=== PATIENT | female | born 1945 | race Caucasian/White ===

== ENCOUNTER 2017-03-20 20:17 | Inpatient (IN) | payer MEDICARE, OTHER ==
[~2017-03-20] VITALS: Ht 162.6 cm; Wt 95.6 kg
--- NOTE | ~2017-03-20 | CN ---
PATIENT NAME:ROSE MARIE ECHEVARRIA MEDICAL RECORD: [id number] : 41 LOCATION:D.M2 D.2130 ADMIT DATE: 03/20/17 ACCOUNT: [id number] CONSULTING PHYSICIAN: BARBIE FRIED MD REFERRING PHYSICIAN: GRABIEL MEDELLIN MD DATE OF CONSULTATION: 03/23/2017 CONSULT REQUESTING PHYSICIAN: Dr. Avila Pérez. REASON FOR CONSULTATION: Wheezing, coughing, shortness of breath, acute exacerbation of asthma. HISTORY OF PRESENT ILLNESS: Ms. Echevarria is a 72-year-old female. She was admitted through the ER with acute kidney injury, electrolyte abnormality and AFib. Initially, the patient went into the ICU. They transferred up to the medical floor. The patient also having a history of asthma. She had been evaluated by Dr. Dejesus. According to patient she had strep throat a few days ago. She was treated with Augmentin. Now, she is coughing, which is productive with green colored production. She also hears herself wheezing. She has shortness of breath. There are no fever and chill. REVIEW OF SYSTEMS: Mainly in the history of present illness. PAST MEDICAL HISTORY: 1. Recent strep throat. 2. Asthma. 3. Rheumatoid arthritis. 4. Hypertension. 5. Hypothyroidism. 6. Morbid obesity. 7. Neuropathy in the lower extremity. 8. Chronic pain. PAST SURGICAL HISTORY: 1. Cholecystectomy. 2. She has cardiac catheterization and stent placement in the past. 3. History of colostomy for perforated colon and reversal. 4. Hip surgery. 5. Left knee surgery. 6. History of foot drop. ALLERGIES: SHE IS ALLERGIC TO MORPHINE AND SULFA. PRESENT MEDICATIONS: Albuterol, ipratropium nebulizer, methylprednisolone IV. Her other medication is reviewed. PERSONAL AND SOCIAL HISTORY: The patient is a nonsmoker, nondrinker. FAMILY HISTORY: Noncontributory. PHYSICAL EXAMINATION: GENERAL: Now, the patient is lying comfortably. She is not in acute distress. VITAL SIGNS: The blood pressure is 148/70, pulse is 80, respiration is 20, temperature 98.1, SpO2 of 97% on 2.5 liter nasal cannula. HEENT: Conjunctivae pink, sclerae nonicteric. CONSULT REPORT [id number] ROSE MARIE ECHEVARRIA NECK: Supple. No JVD. CHEST: There is prolonged expiration with wheezing. HEART: Rhythm regular, normal sound, no murmur. ABDOMEN: Soft. Bowel sounds present. No hepatosplenomegaly. RECTAL: Deferred. EXTREMITIES: No cyanosis, no clubbing, no pedal edema. SKIN: Warm, normal turgor. CENTRAL NERVOUS SYSTEM: The patient is awake and alert. There is no obvious cranial nerve abnormality. The gait was not tested. IMAGING: Chest radiograph, there are bilateral increased interstitial marking with infiltrate. OTHER LABORATORY DATA: CBC: WBC is 6.2, hemoglobin 9.3, hematocrit 27.8, the platelet count 206. Chemistry: Sodium 125, potassium 4.6, BUN is 63, creatinine 2.4. IMPRESSION: 1. Acute exacerbation of asthma. 2. Bilateral pneumonia, possible pulmonary edema. 3. History of recent strep throat. 4. Acute kidney injury. 5. Atrial fibrillation. 6. Coronary artery disease. 7. Hypertension. 8. Anemia. 9. Hyponatremia. RECOMMENDATION: 1. Methylprednisolone IV, continue Levaquin and Rocephin. 2. Albuterol/ipratropium nebulizer, start her on Singulair, start her on Brovana and budesonide nebulizer. Follow up labs and chest radiograph in the morning. Nephrology is on the case. Dr. Pérez, once again thanks for involving me in the care of . TRANSINT:[id number] Voice Confirmation ID: [id number] DOCUMENT ID: [id number] BARBIE FRIED MD CC: GRABIEL MEDELLIN MD [id number] DICTATION DATE: 03/23/171650 SIXTH GRADE TEACHER: 03/23/172122 ADM IN [place] [place] [address]
--- NOTE | ~2017-03-20 | HEMODYNAMI ---
PATIENT:ROSE MARIE VILLEGAS MEDICAL RECORD: [id number] : 41 [facility]ATION[facility] D.2125 [id number] ADMISSION DATE: 03/20/17 Generatedon:03/31/201716:19 Patient name: ROSE MARIE VILLEGAS Patient #: [id number] SSN: [id number] : 1945 Date of study: 03/31/2017 Page: Of Hemodynamic Procedure Report Patient Data Patient Demographics Procedure consent was obtained First Name: ROSE MARIE Gender: Female Last Name: NELLY : 1945 Patient #: [id number] Age: 72 year(s) Race: SSN: [id number] Additional ID: [id number] Contact details Address: [address] [address] State: [place] City: [place] Zip code: [address] Past Medical History Allergies Allergen Reaction Date Comments Reported Other allergy 03/31/2017 Morphine, Sulfa Admission Admission Data Admission Date: 03/20/2017 Admission Time: 22:39 Arrival Date: 03/20/2017 Arrival Time: 22:39 Admit Source: Other Insurance Payor: Medicare Room #: D.2125 Height (in.): 61 BSA: 1.93 (m2) Height (cm.): 154.94 BMI: 39.68 (kg/m2) Weight (lbs.): 210 Weight (kg.): 95.25 Lab Results Lab Result Date: 03/31/2017 Lab Result Time: 0:00 Biochemistry Name Units Result Min Max BUN mg/dl 93 --(----)-* 7 18 Creatinine mg/dl 2.1 --(----)-* 0.6 1.3 CBC Name Units Result Min Max Hemoglobin g/dl 10.3 *-(----)-- 13.5 17.5 Procedure Procedure Types Cath Procedure Diagnostic Procedure LHC LHC w/Coronaries Miscellaneous Procedures Moderate Sedation up to 15 minutes Procedure Description Procedure Date Procedure Date: 03/31/2017 Procedure Start Time: 16:08 Procedure End Time: 16:16 Procedure Staff Name Function Kingston Xiao MD Performing Physician Mckenna Priest RT Scrub Rere Elmore RN Nurse Christie Peterson RT Monitor Indication Angina Procedure Data Cath Procedure Fluoroscopy Diagnostic fluoroscopy Total fluoroscopy Time: 1.3 time: 1.3 min min Diagnostic fluoroscopy Total fluoroscopy dose: 510 dose: 510 mGy mGy Contrast Material Contrast Material Type Amount (ml) Isovue 370 510 Entry Location Entry Primary Successful Side Size Upsize Upsize Entry Closure Succes sful Closure Location (Fr) 1 (Fr) 2 (Fr) Remarks Device Remarks Femoral Right 5 Fr Exoseal artery Estimated blood loss: 5 ml Diagnostic catheters Device Type Used For End Catheter Placement Cordis 5Fr Pigtail LV Angiography Catheter (MP) Cordis 5Fr JL 4.0 Left Coronary Catheter (MP) Angiography Cordis 5Fr 3DRC Catheter Right Coronary (MP) Angiography Procedure Complications No complications Procedure Medications Medication Administration Route Dosage Oxygen NC 2 l/min Lidocaine 2% added to field 20 Heparin Flush Bag added to field 2 bags (1000units/500ml NS) 0.9% NaCl I.V. 100 ml/hr Benadryl I.V. 50 mg Versed I.V. 1 mg Fentanyl I.V. 50 mcg Versed I.V. 1 mg Fentanyl I.V. 50 mcg Hemodynamics Rest BSA: 1.93 (m2) HGB: 10.3 (g/dl) O2 Consumption: Estimated: 201.75 (ml/min) O2 Co nsumption indexed: Estimated:104.53 (ml/min/m) Heart Rate: 105 (bpm) Pressure Samples Time Site Value (mmHg) Purpose Heart Use Rate(bpm) 16:10 LV 143/23,33 Snapshot 93 Snapshots Pre Cath Intra NCS Post Cath Vital Signs Time Heart Resp SPO2 NIBP (mmHg) Rhythm Pain Sedation Rate (ipm) (%) Status Level (bpm) 15:40:06 107 21 93 141/89(121) NSR 0 (11) 10(A) , No pain 15:44:22 107 20 95 138/94(113) NSR 0 (11) 10(A) , No pain 15:48:40 105 20 94 133/86(113) NSR 0 (11) 10(A) , No pain 15:52:58 102 19 94 133/81(114) NSR 0 (11) 10(A) , No pain 15:57:12 96 19 92 125/75(101) NSR 0 (11) 10(A) , No pain 16:01:28 99 17 93 129/73(96) NSR 0 (11) 10(A) , No pain 16:05:36 91 18 93 117/76(97) NSR 0 (11) 10(A) , No pain 16:09:45 97 19 93 127/80(99) NSR 0 (11) 9(A) , No pain 16:14:01 96 17 93 129/74(104) NSR 0 (11) 10(A) , No pain 16:18:16 95 17 94 130/78(102) NSR 0 (11) 10(A) , No pain Medications Time Medication Route Dose Verified Delivered Reason Notes Effe ctiveness by by 15:56:26 Oxygen NC 2 Kingston Buffie used for l/min Dameon Elmore RN procedure 15:56:33 Lidocaine 2% added 20ml Kingston Kingston for local to vial Dameon Xiao MD anesthetic field 15:56:39 Heparin Flush added 2 Kingston Kingston used for Bag to bags Dameon Xiao MD procedure (1000units/500ml field NS) 15:56:49 0.9% NaCl I.V. 100 Kingston Buffie Per ml/hr Dameon Elmore RN physician 15:58:15 Benadryl I.V. 50 mg Kingston Buffie used for Dameon Elmore RN procedure 16:07:06 Versed I.V. 1 mg Kingston Buffie for Dameon Elmore RN sedation 16:07:11 Fentanyl I.V. 50 Kingston Buffie for mcg Dameon Elmore RN sedation 16:12:39 Versed I.V. 1 mg Kingston Buffie for Dameon Elmoer RN sedation 16:12:43 Fentanyl I.V. 50 Kingston Buffie for mcg Dameon Elmore RN sedation Procedure Log Time Note 15:06:57 Informed consent obtained and on chart 15:07:02 Admit Source: Other 15:07:08 Arrival Date: 03/20/2017 10:39:00 PM 15:07:17 Insurance Payor : Medicare 15:19:36 Lab Result : BUN 93 mg/dl 15:19:36 Lab Result : Hemoglobin 10.3 g/dl 15:19:36 Lab Result : Creatinine 2.1 mg/dl 15:19:46 Diagnostic Cath Status : Elective 15:20:02 Indication : Angina 15:20:09 Mckenna Priest RT(R) sent for patient. Start room use. 15:20:10 Time tracking: Regular hours 15:20:14 Plan of Care:Hemodynamics will remain stable., Cardiac rhythm will remain stable., Comfort level will be maintained., Respiratory function will remain adequate., Patient/ family verbilizes understanding of procedure., Procedure tolerated without complication., Recovers from procedure without complications.. 15:29:15 Patient received from Med II to CCL 2 Alert and oriented. Tansferred to table in Supine position. 15:29:16 Warm blankets applied, and emerson hugger turned on for patient comfort. 15:29:17 Correct patient and procedure confirmed by team. 15:29:19 ECG and BP/O2 sat monitors applied to patient. 15:38:53 Vital chart was started 15:38:54 Baseline sample Acquired. 15:39:35 Rhythm: sinus rhythm 15:39:37 Full Disclosure recording started 15:39:41 H&P Date Dictated: 03/31/2017 New H&P dictated by physician.. 15:39:42 Pre-procedure instructions explained to patient. 15:39:43 Pre-op teaching completed and patient verbalized understanding. 15:39:44 Family in waiting room. 15:39:45 Patient NPO since Midnight. 15:39:59 Patient allergic to Other allergyMorphine, Sulfa 15:40:02 Is the patient allergic to Iodine/contrast media? No. 15:40:03 Was the patient premedicated? No 15:40:04 Is patient on blood thinner?No 15:40:06 Patient diabetic? No. 15:40:09 Previous problem with sedation/anesthesia? No ? 15:40:26 Snore? No 15:40:26 Sleep apnea? No 15:40:27 Deviated septum? No 15:40:33 Opens mouth fully? Yes 15:40:33 Sticks out tongue? Yes 15:40:41 Airway obstruction? Yes asthma 15:40:44 Dentures? No ? 15:40:47 Pre procedure: right dorsailis pedis pulse 1+ Palpable, but thready & weak; easily obliterated 15:40:49 Patient pain scale 0/10 ?. 15:40:57 IV patent on arrival in left forearm with 0.9% NaCl at [facility]. 15:40:59 Lab results completed and on chart. 15:41:13 Right groin area was prepped with chlora-prep and draped in sterile fashion 15:41:14 Alarms reviewed by R. N. 15:41:14 Sharps counted by scrub and verified by R.N. 15:43:19 Use device set Femoral Dx 15:43:20 Acist Syringe opened to sterile field. 15:43:21 Bag Decanter opened to sterile field. 15:43:21 Medline Cath Pack opened to sterile field. 15:43:21 Terumo 5Fr [place] Sheath opened to sterile field. 15:43:22 St Yoan 260cm J .035 wire opened to sterile field. 15:43:23 Acist Hand Control opened to sterile field. 15:43:24 Acist Manifold opened to sterile field. 15:43:24 Diagnostic Infinity 5Fr Multipack catheter opened to sterile field. 15:43:24 Tegaderm 4 x 4 opened to sterile field. 15:48:59 Baseline sample Acquired. 15:55:17 Physician paged 15:56:08 Zero performed for pressure channel P1 15:56:26 Oxygen 2 l/min NC was administered by Rere Elmore RN; used for procedure; 15:56:33 Lidocaine 2% 20ml vial added to field was administered by Kingston Xiao MD; for local anesthetic; 15:56:39 Heparin Flush Bag (1000units/500ml NS) 2 bags added to field was administered by Kingston Xiao MD; used for procedure; 15:56:49 0.9% NaCl 100 ml/hr I.V. was administered by Rere Elmore RN; Per physician; 15:58:15 Benadryl 50 mg I.V. was administered by Rere Elmore RN; used for procedure; 16:05:21 Physician arrived 16:05:21 --------ALL STOP TIME OUT------ 16:05:22 Final Timeout: patient, procedure, and site verified with staff and physician. All members of the team are in agreement. 16:05:24 Right groin site verified by team. 16:05:27 Physical assessment completed. ASA score P 2 - A patient with mild systemic disease as per Kingston Xiao MD. 16:05:29 Sedation plan: IV Moderate Sedation Versed, Fentanyl 16:07:06 Versed 1 mg I.V. was administered by Rere Elmore RN; for sedation; 16:07:11 Fentanyl 50 mcg I.V. was administered by Rere Elmore RN; for sedation; 16:08:10 Procedure started. 16:08:13 Local anesthetic to right femoral artery with Lidocaine 2% by Kingston Xiao MD.INITIAL ACCESS ONLY 16:08:22 A 5 Fr sheath was inserted into the Right Femoral artery 16:08:30 A Cordis 5Fr Pigtail Catheter (MP) was advanced over the wire and used for LV Angiography. 16:10:13 LV hemodynamics recorded. 16:10:14 LV gram done using [facility] 16:10:26 EF : 30 % 16:10:33 Catheter removed. 16:10:41 A Cordis 5Fr JL 4.0 Catheter (MP) was advanced over the wire and used for Left Coronary Angiography. 16:11:32 LCA angiography performed. 16:11:35 Injector settings: Ml/sec: 3, Volume: 6, 16:12:34 Catheter removed. 16:12:39 Versed 1 mg I.V. was administered by Rere Elmore RN; for sedation; 16:12:40 A Cordis 5Fr 3DRC Catheter (MP) was advanced over the wire and used for Right Coronary Angiography. 16:12:43 Fentanyl 50 mcg I.V. was administered by Rere Elmore RN; for sedation; 16:12:57 RCA angiography performed. 16:13:01 Injector settings: Ml/sec: 3, Volume: 6, 16:13:07 Catheter removed. 16:13:35 Cordis 5Fr Exoseal opened to sterile field. 16:13:41 Sheath removed intact; hemostasis achieved with Exoseal to the Right Femoral artery. 16:13:43 Procedure ended.(Physican Out) 16:14:07 Fluoroscopy time 01.30 minutes. 16:14:16 Fluoroscopy dose: 510 mGy 16:14:16 Flurop Dose total: 510 16:14:39 Contrast amount:Isovue 370 510ml. 16:14:40 Sharps counted by scrub and verified by R.N. 16:14:42 Insertion/operative site no bleeding no hematoma. 16:14:45 Post-op/insertion site Right Femoral artery dressed using a 4 x 4 and Tegaderm. 16:14:48 Post right femoral artery:stable 16:14:49 Post Procedure Pulses reassessed and unchanged 16:14:52 Post procedure rhythm: unchanged. 16:14:55 Estimated blood loss: 5 ml 16:14:56 Post procedure instruction explained to patient.Patient verbalizes understanding. 16:14:56 Patient needs reinforcement of post procedure teaching. 16:15:11 Procedure type changed to Cath procedure, Diagnostic procedure, LHC, LHC w/Coronaries, Miscellaneous Procedures, Moderate Sedation up to 15 minutes 16:15:39 Procedure and supply charges have been captured, reviewed, submitted and are correct. 16:15:43 Procedure Complication : No complications 16:15:45 Vital chart was stopped 16:15:46 See physician's report for complete and final results. 16:15:58 Report given to [facility] II. 16:16:01 Patient transfered to Med II with Stretcher. 16:16:03 Procedure ended. 16:16:03 Full Disclosure recording stopped 16:16:07 End room use (Document Last) 16:18:57 Patient Height : 154.94 cm 16:19:00 Patient Weight : 95.25 kg Device Usage Item Name Manufacture Quantity Catalog Hospital Part Current Minimal Lo t# / Number Charge Number Stock Stock Serial# Code Acist Acist 1 39441 287873 292366 429351 20 Syringe Medical [employer] Inc Bag Microtek 1 2002S 580344 84931 425750 5 Decanter Medical Inc. Medline Cardinal 1 [id number] 153471 23719 270619 5 Cath Pack Health Terumo 5Fr Terumo 1 [id number] 729325 891073 309677 [address] Yo[address] St Yoan 1 [id number] 381124 574320 237021 30 260cm J .035 wire Acist Hand Acist 1 54714 899577 789454 945936 5 Control Medical Systems Inc Acist Acist 1 77348 271708 398942 887792 5 Manifold Medical Systems Inc Diagnostic Cardinal 1 AR9400 711111 38484 482868 30 Jumper Networks 5Fr Multipack catheter Tegaderm 4 3M 1 1626W 902242 465123 967966 5 x 4 Cordis 5Fr Cardinal 1 464336 5 Pigtail Health Catheter (MP) Cordis 5Fr Cardinal 1 103010 5 JL 4.0 Health Catheter (MP) Cordis 5Fr Cardinal 1 017985 5 3DRC Health Catheter (MP) Cordis 5Fr Cardinal 1 EX500 660021 812857 645940 10 [facility] Health Signature Audit [place] Stage Time Signature Unsigned Intra-Procedure 03/31/2017 Christie Peterson 4:19:15 PM RT(R) Signatures Monitor : Christie Peterson RT Signature : Date : Time : [facility] [address] [place] [address]
--- NOTE | ~2017-03-20 | OP ---
PATIENT NAME: ROSE MARIE VILLEGAS MEDICAL RECORD: [id number] :41 LOCATION:D.M2 D.2125 ADMISSION DATE:03/20/17 SURGEON: MARIAN MANDEL MD DATE OF OPERATION: 03/31/2017 PROCEDURES: 1. Left heart catheterization. 2. Selective coronary angiography. 3. Left ventriculogram. INDICATION: Cardiomyopathy, congestive heart failure. PROCEDURE IN DETAIL: After informed consent was obtained and after detailed explanation of risks, benefits as well as alternative therapies, the patient elected to proceed with angiogram and heart catheterization. The right femoral area was prepped and draped in normal sterile fashion. Right femoral artery was cannulated via modified Seldinger technique with placement of 5-Nepali sheath. All catheters exchanged through this sheath. FINDINGS: Left ventriculogram was performed in standard 30-degree [facility] view, reveals global hypokinesis throughout all segments. Overall ejection fraction 35%. SELECTIVE CORONARY ANGIOGRAPHY: 1. Left main is with no significant angiographic disease. 2. Left anterior descending has moderate irregularities, but no flow-limiting stenosis. 3. The left circumflex shows moderate irregularities, but no flow-limiting stenosis. 4. Right coronary is small, nondominant with no significant disease. OVERALL IMPRESSION: Minimal coronary artery disease is present, nonischemic cardiomyopathy, most likely secondary to the acute infectious process. Continue medical management of congestive heart failure and cardiomyopathy. TRANSINT:[id number] Voice Confirmation ID: [id number] DOCUMENT ID: [id number] MARIAN MANDEL MD CC: [id number] DICTATION DATE: 03/31/17 1617 SPLITTING MACHINE OPERATOR: 04/01/17 0106 ADM IN [place] [id number] [place] [address]
[~2017-03-20 20:17] MED LIST: DIABETA5 MG PO; FOLIC ACID1 MG PO; GABAPENTIN100 MG PO; HYDROCODONE-APA1 TAB PO; METHOTREXATE2.5 MG PO; NORVASC10 MG PO; NORVASC5 MG PO; PRAVACHOL20 MG PO; PROAIR HFA8.5 GM INH; SYNTHROID50 MCG PO; TOPROL XL50 MG PO; TRADJENTA5 MG PO; ULTRAM50 MG PO; VITAMIN D31000 UNIT PO; VOLTAREN100 GM TP; VOLTAREN75 MG PO; XANAX0.5 MG PO; ZANAFLEX4 MG PO; ZESTORETIC 10/11 TAB PO
[2017-03-20 21:05] LABS: BASOPHILS 0.2 % (0.0-2.0); EOSINOPHILS 1.9 % (0-7); HEMATOCRIT 30.6 % (36.0-48.0); HEMOGLOBIN 10.1 g/dL (12-16); IMMATURE GRANULOCYTES 0.5 % (0-5); INR 1.12 (0.85-1.17); LYMPHOCYTES 24.9 % (15-50); MCH 30.4 pg (26.0-34.0); MCV 92.2 fL (80.0-100.0); MEAN PLATELET VOLUME 9.9 fL (7.4-10.4); MONOCYTES 13.8 % (2-11); NEUTROPHILS 58.7 % (40-80); PLATELET COUNT 224 10x3/uL (130-400); PROTIME 14.3 SECONDS (11.6-15.0); RBC 3.32 10x6/uL (4.00-5.40); RDW 14.9 % (11.5-14.5); WBC 6.4 10x3/uL (4.8-10.8)
[2017-03-20 21:16] LABS: ALBUMIN 2.4 g/dL (3.4-5.0); ALKALINE PHOSPHATASE 75 U/L (46-116); ALT (SGPT) 16 U/L (10-68); CALC OSMOLALITY 266 mosm/kg (275-300); CARBON DIOXIDE 23.4 mmol/L (21.0-32.0); CHLORIDE - SERUM 88 mmol/L (98-107); CKMB 2.3 U/L (0.0-3.6); CREATINE KINASE 152 UL (21-215); CREATININE - SERUM 4.5 mg/dL (0.6-1.3); GLUCOSE 101 mg/dL (74-106); PRO BNP 9772 pg/mL (0-125); PROTEIN - SERUM 7.9 g/dL (6.4-8.2); SODIUM 121 mmol/L (136-145); UREA NITROGEN 76 mg/dL (7-18); eGFR NON AFRICAN AMERICAN 10 mL/min (90-120)
[2017-03-20 21:19] LABS: POTASSIUM - SERUM 6.8 mmol/L (3.5-5.1); TROPONIN-I < 0.017 ng/mL (0.000-0.060)
[2017-03-20 23:30] VITALS: BP 128/60
--- NOTE | 2017-03-20 23:30 | NUR ---
RECEIVED PATINET FOR ER VIA STRETCHER. TRASFERED TO ICU BED, SEO ASSISTANT ATTACHED. ADMISSION ASSSESSMENT AND HISTORY DONE. CALL LIGHT IN REACH. WILL CONT TO MONITOR.
[2017-03-20 23:34] VITALS: BP 128/60; BMI 37.5
[2017-03-20] MEDS ORDERED: ULTRAM50 MG PO ×2 (23:51→23:52)
[2017-03-20] MEDS ORDERED: ZESTORETIC 10/11 TAB PO (23:55)
[2017-03-20] MEDS ORDERED: ENBREL50 MG/ML SQ (23:56)
[2017-03-21] VITALS (24 sets, daily range): BP systolic 96–156; BP diastolic 48–109; Ht 162.6 cm; Wt 95.6 kg
[2017-03-21 00:05] LABS: APPEARANCE HAZY (CLEAR); BACTERIA NONE SEEN /hpf (NONE SEEN); BILIRUBIN NEGATIVE (NEGATIVE); COLOR YELLOW (YELLOW); EPITHELIAL CELLS NSEEN /hpf (0-5); GLUCOSE NEGATIVE (NEGATIVE); KETONE NEGATIVE (NEGATIVE); LEUKOCYTE ESTERASE NEGATIVE (NEGATIVE); NITRITE NEGATIVE (NEGATIVE); PROTEIN 1+ mg/dL (NEGATIVE); UROBILINOGEN NORMAL (NORMAL); WHITE CELLS - URINE 0-5 /hpf (0-5)
--- NOTE | 2017-03-21 00:20 | NUR ---
UPDATE CALLED TO SANDRA JOHNSTON, NEW ORDERS RECIEVED,
--- NOTE | 2017-03-21 01:00 | NUR ---
PT INCONINENT OF SMALL YELLOW LIQUID STOOL, SARA CARE PROVIDED. PAD CHANGED. REPOSITIONED FOR COMFORT. CALL LIGHT IN REACH, WILL CONT TO MONITOR.
--- NOTE | 2017-03-21 01:09 | NUR ---
CONSULT CALLED TO DR. HAWK NEW ORDERS RECIEVED,
--- NOTE | 2017-03-21 03:00 | NUR ---
REASSESSMENT COMPLETED PER FLOW SHEETS. NO ACUTE CHANGES IN PT'S CONDITION NOTED. SR ON CM. NO NEEDS VOICES AT THIS TIME. CALL LIGHT IN REACH. WILL CONT TO MONITOR.
[2017-03-21 04:15] LABS: BASOPHILS 0.2 % (0.0-2.0); EOSINOPHILS 0.2 % (0-7); HEMATOCRIT 27.9 % (36.0-48.0); HEMOGLOBIN 9.2 g/dL (12-16); IMMATURE GRANULOCYTES 0.6 % (0-5); LYMPHOCYTES 16.4 % (15-50); MCH 30.4 pg (26.0-34.0); MCV 92.1 fL (80.0-100.0); MEAN PLATELET VOLUME 9.7 fL (7.4-10.4); MONOCYTES 17.6 % (2-11); PLATELET COUNT 195 10x3/uL (130-400); RBC 3.03 10x6/uL (4.00-5.40); RDW 14.8 % (11.5-14.5); WBC 5.4 10x3/uL (4.8-10.8)
[2017-03-21 04:53] LABS: ALBUMIN 2.1 g/dL (3.4-5.0); BILIRUBIN - TOTAL 0.3 mg/dL (0.2-1.3); CALCIUM 8.4 mg/dL (8.5-10.1); CARBON DIOXIDE 24.6 mmol/L (21.0-32.0); PROTEIN - SERUM 7.1 g/dL (6.4-8.2)
[2017-03-21 04:57] LABS: ANION GAP 12.9 mmol/L (8-16)
[2017-03-21 04:58] LABS: POTASSIUM - SERUM 6.5 mmol/L (3.5-5.1)
--- NOTE | 2017-03-21 05:35 | NUR ---
DR ARANA CALLED REGARDING CRITICAL K 6.5. ORDER RECEIVED.
--- NOTE | 2017-03-21 10:11 | NUR ---
Patient Name: ROSE MARIE VILLEGAS Admission Status: ER Accout number: [id number] Admission Date: 03-20-2017 : 1945 Admission Diagnosis: Attending: CRISTAL Current LOS: 1 Anticipated DC Date: 03-25-2017 Planned Disposition: Home or Self Care Primary Insurance: MEDICARE A & B Discharge Planning Comments: CM MET WITH PATIENT REGARDING D/C NEEDS AND PLANS. PATIENT STATED SHE LIVES WITH HER DAUGHTER (JULIAN) AND HER FAMILY. PATIENTS DAUGHTER WILL DRIVE HER HOME AT DISCHARGE. THERE IS A RAMP TO ENTER PATIENTS HOME AND NO STAIRS INSIDE. PATIENT IS INDEPENDENT WITH HER CARE AND HAS A WALKER, SHOWER CHAIR, BS COMMODE, NEBULIZER, AND OXYGEN (2L HS) AT HOME. PATIENTS PCP IS DR. PERRY AND PHARMACY IS [facility]. PATIENT HAS NOT HAD HOME HEALTH AND DOES NOT THINK SHE WILL NEED IT. CM WILL CONTINUE TO FOLLOW PATIENT WITH D/C NEEDS AND PLANS. PCP DR. VICKY CAMPOS AT [facility]- [phone] JULIAN METZ (DAUGHTER) [phone] Manager Engine: Ximena Tillman Is the patient Alert and Oriented? Yes 0 * How many steps to enter\exit or inside your home? RAMP 0 * PCP DR. PERRY 0 * Pharmacy [facility] 0 * Preadmission Environment Home with Family 0 * ADLs Independent 0 * Equipment Bedside Commode Nebulizer Oxygen Shower Chair Walker 0 * Other Equipment [employer] OXYGEN 0 * List name and contact numbers for known caregivers / representatives who currently or will assist patient after discharge: JULIAN METZ [phone] 0 * Community resources currently utilized None 0 * Additional services required to return to the preadmission environment? Yes 0 * Can the patient safely return to the preadmission environment? Yes 0 * Has this patient been hospitalized within the prior 30 days at any hospital? No 0 Grand Total: 0
--- NOTE | 2017-03-21 10:29 | HP ---
PATIENT: ROSE MARIE VILLEGAS MEDICAL RECORD: [id number] ACCOUNT: [id number] LOCATION:[facility] D.2310 : 43 ADMISSION DATE: 03/20/17 HISTORY AND PHYSICAL EXAMINATION HISTORY OF PRESENT ILLNESS: This very pleasant 72-year-old white female was brought in to the hospital by ambulance for evaluation of shortness of breath. The patient was noted in her usual state of health. Evidently, she has been treated for a recent strep throat infection and has been given Augmentin and has been taking medication as prescribed. The patient has had some increasing difficulty with urine output and facial swelling over the last 24 hours. She was noted to have increasing tremors by her daughter, who is a hemodialysis nurse and had increasing twitching of the bilateral upper extremities and was brought in for further evaluation. Workup was initiated in the ER and the patient was found to be in acute renal failure with hyperkalemia. Her potassium was 7, rechecked and again and it was found to be 6.8. She does have EKG changes and is to be admitted to the ICU. Nephrology consultation will be obtained and we will check further treatment there. PAST MEDICAL HISTORY: Significant for: 1. Recent strep throat. 2. Hypertension. 3. Hypothyroidism. 4. Asthma. 5. Rheumatoid arthritis. 6. Neuropathy in the left lower extremity. 7. Osteoarthritis. 8. Obesity. 9. Decreased urine output. 10. Chronic pain. PAST SURGICAL HISTORY: Includes cholecystectomy. She had a colostomy for perforated colon and colostomy reversal. She has had 2 left hip surgery. She has had 1 right hip surgery. She has had left ankle surgery with pins and left ankle hardware removal. She does have drop foot on the left leg and wears a splint. The patient has had bilateral carpal tunnel surgery. She does not smoke, does not drink alcohol. ALLERGIES: SHE IS ALLERGIC MORPHINE AND SULFA. MEDICATIONS: Her medications include Norvasc, methotrexate, albuterol, Synthroid, lisinopril/HCTZ, Zanaflex, vitamin D, diclofenac, gabapentin, Tylenol No. 3, tramadol, oxygen, Enbrel, metoprolol, and folic acid. REVIEW OF SYSTEMS: As above. PHYSICAL EXAMINATION: VITAL SIGNS: As below. GENERAL: She is an ill-appearing 72-year-old white female, on oxygen, that has obvious tremors in her bilateral upper extremities. HEENT: Her pupils are equal, round, and reactive to light. Extraocular movements are intact. Oral cavity and oropharynx otherwise clear, except for moderate erythema in the posterior throat. LUNGS: Have expiratory wheezes heard in the bilateral upper lobes. HEART: Regular rate and rhythm with tachycardia. HISTORY AND PHYSICAL [id number] ROSE MARIE VILLEGAS ABDOMEN: Soft, nontender, and obese. Positive bowel sounds. No hepatosplenomegaly, no masses. EXTREMITIES: She has arthritic changes noted in her knees, has 1+ edema in the bilateral upper extremities of her hands, has a left ankle brace on the for foot drop. DIAGNOSTIC DATA: EKG shows normal sinus rhythm with evidence of widened QRS in the anterior leads. She also has an incomplete R-wave progression, has evidence of a very prominent wavy baseline on the I, II, and III leads. ASSESSMENT: 1. Hyperkalemia. 2. Acute renal insufficiency. 3. Strep throat. 4. Hypertension. 5. Arrhythmia. 6. Asthma exacerbation. 7. Wheezing. 8. Obesity. 9. Tremors. PLAN: The patient will be admitted to the ICU. Nephrology consultation will be obtained. The patient will have glucose and insulin for her hyperkalemia, steroids will be utilized and breathing treatments. TRANSINT:[id number] Voice Confirmation ID: [id number] DOCUMENT ID: [id number] GRABIEL MEDELLIN MD at 1029 CC: [id number] DICTATION DATE: 03/20/172248 SENIOR PROJECT CONTROLS SPECIALIST: 03/20/17 2317 ADM IN [place] [id number] [place] [address]
[2017-03-21 11:22] LABS: ANION GAP 12.6 mmol/L (8-16); CARBON DIOXIDE 26.8 mmol/L (21.0-32.0); CREATININE - SERUM 3.8 mg/dL (0.6-1.3)
[2017-03-21 11:25] LABS: POTASSIUM - SERUM 6.4 mmol/L (3.5-5.1)
--- NOTE | 2017-03-21 11:29 | NUR ---
DR. MEDELLIN NOTIFIED OF CRITICAL LAB.
[2017-03-21 18:05] LABS: HEMATOCRIT 29.5 % (36.0-48.0); HEMOGLOBIN 9.8 g/dL (12-16)
[2017-03-21 18:13] LABS: ANION GAP 16.3 mmol/L (8-16); CARBON DIOXIDE 22.2 mmol/L (21.0-32.0); CREATININE - SERUM 3.4 mg/dL (0.6-1.3); POTASSIUM - SERUM 5.5 mmol/L (3.5-5.1)
--- NOTE | 2017-03-21 19:00 | NUR ---
REPORT RECIEVED, INITIAL ASSESSMENT COMPLETE, PLEASE SEE FLOW SHEETS FOR DETAILS. COMPLAINS OF PAIN 10/10 ALL OVER DUE TO RHEUMATOID ARTHRITIS PER PT. RECIEVED KARL APPROXIMATELY 30 MINUTES AGO, WILL RE-EVALUATE. VSS BED LOW AND LOCKED, CALL LIGHT IN REACH. WILL CONTINUE POC.
--- NOTE | 2017-03-21 20:30 | NUR ---
PT UP TO BEDSIDE CAMODE WITH ASSISTANCE. HAD MEDIUM SIZE BM. NO OTHER NEEDS ATT, BACK TO BED, LOW AND LOCKED, CALL LIGHT IN REACH, WILL CONTINUE POC.
--- NOTE | 2017-03-21 21:25 | NUR ---
PT COMPLAINING OF SEVERE PAIN, SHAKING ANS SWEATING ATT, WILL PAGE CHEMICAL COMPOUNDER HELPER DOC.
--- NOTE | 2017-03-21 21:26 | NUR ---
PAGED DR ARRIAGA CALL FOR RENAL FOR PT PAIN MEDS PER PT REQUEST
--- NOTE | 2017-03-21 21:31 | NUR ---
RECIEVED CALL BACK FROM DR BETANCOURT, ORDERED PT HOME MED PER DAUGHTER INFO OVER PHONE, PLEASE SEE ORDERS FOR DETAILS.
--- NOTE | 2017-03-21 23:00 | NUR ---
REASSESSMENT COMPLETE, PLEASE SEE FLOW SHEETS FOR DETAILS. CONTINUES TO COMPLAIN OF PAIN AND CANNOT LAY STILL, SHAKES CONSTANTLY, ASKED IF SHE HAD EVER HAD A REACTION TO ANY MEDICATIONS LIKE THIS BEFORE AND SHE SAID NO. SHE HAS BEEN SHAKING LIKE THIS THE WHOLE SHIFT AND AFTER ATIVAN IT HAS NOT IMPROVED. PT ALSO COMPLAINS TO BEING HOT BUT IS AFEBRILE, COOLED OFF ROOM AND OPENED WINDOW TO VENTILATE AIR THROUGH ROOM. VSS ATT, BED LOW AND LOCKED, CALL LIGHT IN REACH. WILL CONTINUE POC.
[2017-03-22] VITALS (18 sets, daily range): BP systolic 123–158; BP diastolic 68–117
--- NOTE | 2017-03-22 01:00 | NUR ---
PT CONTINUES TO COMPLAIN OF PAIN AND HAS TREMORS. UP TO CAMODE SEVERAL TIMES NOW. BED LOW AND LOCKED, CALL LIGHT IN REACH. VSS, WILL CONTINUE POC.
--- NOTE | 2017-03-22 03:00 | NUR ---
REASSESSMENT COMPLETE, PLEASE SEE FLOW SHEETS FOR DETAILS. BED LOW AND LOCKED, NO CHANGES NOTED. CALL LIGHT IN REACH. WILL CONTINUE POC.
[2017-03-22 04:18] LABS: BASOPHILS 0 % (0-2); EOSINOPHILS 0 % (0-7); HEMATOCRIT 28.3 % (36.0-48.0); HEMOGLOBIN 9.5 g/dL (12-16); IMMATURE GRANULOCYTES 0.3 % (0-5); MCH 30.4 pg (26.0-34.0); MCHC 33.6 g/dL (31.0-37.0); MCV 90.4 fL (80.0-100.0); MEAN PLATELET VOLUME 9.9 fL (7.4-10.4); MONOCYTES 7.3 % (2-11); NEUTROPHILS 77.4 % (40-80); PLATELET COUNT 221 10x3/uL (130-400); RBC 3.13 10x6/uL (4.00-5.40); RDW 14.7 % (11.5-14.5); WBC 6.5 10x3/uL (4.8-10.8)
[2017-03-22 04:38] LABS: ALBUMIN 2.3 g/dL (3.4-5.0); ANION GAP 16.2 mmol/L (8-16); BILIRUBIN - TOTAL 0.28 mg/dL (0.2-1.3); CALCIUM 7.9 mg/dL (8.5-10.1); CARBON DIOXIDE 22.8 mmol/L (21.0-32.0); MAGNESIUM - SERUM 1.6 mg/dL (1.8-2.4); PROTEIN - SERUM 7.4 g/dL (6.4-8.2)
--- NOTE | 2017-03-22 05:00 | NUR ---
PT UP TO CAMODE, HAD BM, AND HELPED BACK TO BED. CONTINUING EDUCATION ON USE OF CALL LIGHTS. BED LOW AND LOCKED, CALL LIGHT IN REACH. VSS, WILL CONTINUE POC.
--- NOTE | 2017-03-22 07:00 | NUR ---
PATIENT AWAKE, ALERT AND ORIENTED X'S 4. RESPIRATIONS ARE LABORED, AUDIBLE EXPIRATORY WHEEZING. RESPIRATIONS AT 28 PER MINUTE.
--- NOTE | 2017-03-22 08:00 | NUR ---
PATIENT SITTING UP ON THE SIDE OF THE BED EATING BREAKFAST. DAUGHTER IN LAW IN ROOM AT BEDSIDE.
--- NOTE | 2017-03-22 08:12 | NUR ---
CHANGED NS RATE TO 75ML/HR.
--- NOTE | 2017-03-22 08:48 | NUR ---
REC'D CARE OF PT. A&O X3.
--- NOTE | 2017-03-22 09:07 | NUR ---
UP AT SOB WITH PT TO STAND AND WALK IN PLACE.
--- NOTE | 2017-03-22 11:43 | NUR ---
FSBS 133. NO INTERVENTION PER SS.
--- NOTE | 2017-03-22 11:49 | NUR ---
RESTING WITH EYES CLOSED. RESPONSE APPROPRIATLY TO VERBAL STIMULI. A&O X4. DENEIS NEEDS. LEFT AC WITH NS INFUSING AT 75 CC PER HOUR. CLWR. CPOC.
--- NOTE | 2017-03-22 13:33 | NUR ---
REPORT GIVEN TO CRISTOPHER GALARZA RN AND SHE ASSUMED CARE.
--- NOTE | 2017-03-22 19:14 | NUR ---
CALLED REPORT TO SCOTT JEROME ON [facility]
--- NOTE | 2017-03-22 19:15 | NUR ---
RECEIVED REPORT FROM CRISTOPHER IN ER, PT IS DEREK, IV-LAC-SL, 02-2L, PLACED ON FALL PRECAUTION, BAX ALARM ATTACH, FAMILY AT BED SIDE, CALL LIGHT IN REACH, WILL CONTINUE TO MONITOR
--- NOTE | 2017-03-22 19:30 | NUR ---
TRANSFERED PATIENT TO 0. CALLED JULIAN, PATIENT'S EMERGENCY CONTACT, PER PATIENT REQUEST. NOTIFIED HER OF PATIENT'S ROOM NUMBER.
[2017-03-23] VITALS (7 sets, daily range): BP systolic 130–158; BP diastolic 67–82
[2017-03-23 04:34] LABS: BASOPHILS 0.2 % (0-2); EOSINOPHILS 0 % (0-7); HEMATOCRIT 27.8 % (36.0-48.0); HEMOGLOBIN 9.3 g/dL (12-16); IMMATURE GRANULOCYTES 0.3 % (0-5); LYMPHOCYTES 16.6 % (15-50); MCH 30.7 pg (26.0-34.0); MCHC 33.5 g/dL (31.0-37.0); MCV 91.7 fL (80.0-100.0); MEAN PLATELET VOLUME 9.7 fL (7.4-10.4); MONOCYTES 8.5 % (2-11); NEUTROPHILS 74.4 % (40-80); PLATELET COUNT 206 10x3/uL (130-400); RBC 3.03 10x6/uL (4.00-5.40); RDW 14.9 % (11.5-14.5); WBC 6.2 10x3/uL (4.8-10.8)
[2017-03-23 04:46] LABS: ANION GAP 14.4 mmol/L (8-16); CARBON DIOXIDE 23.2 mmol/L (21.0-32.0); CREATININE - SERUM 2.4 mg/dL (0.6-1.3); PHOSPHOROUS 6.3 mg/dL (2.5-4.9); POTASSIUM - SERUM 4.6 mmol/L (3.5-5.1)
--- NOTE | 2017-03-23 07:27 | NUR ---
0715-AM ROUNDING DONE WITH NO COMPLAINTS FROM PATIENT. FEMALE FAMILY MEMBER IN CHAIR. PT ON 2L PER NC, ON HEART MONITOR SHOWING SB, HR 55. LEFT AC SEEN WITH SALINE LOCK. FOELY CATH PATENT WITH CLEAR URINE. BOX ALARM IS IN USE. WILL CONTINUE TO MONITOR.
--- NOTE | 2017-03-23 15:12 | NUR ---
PER PATIENT REQUEST, HUMMEDIFIED OXYGEN PLACED ON HER.
--- NOTE | 2017-03-23 17:52 | NUR ---
PATIENT IS HAVING A MORE LOOSE COUGH AT PRESENT TIME, DENIES NEEDS AT PRESENT TIME. ON PHONE.
--- NOTE | 2017-03-23 19:34 | NUR ---
RESUMED CARE OF PT, LYING IN BED RESPIRATIONS EVEN AND UNLABORED ON 2LPM VIA NC. 70 SR ON TELEMETRY. RODAS TO GRAVITY. LEFT AC SALINE LOCKED. NO NEEDS VOICED AT THIS TIME. WILL CONTINUE TO MONITOR. SEE NURSE ASSESSMENT.
[2017-03-24 03:41] VITALS: BP 155/59
[2017-03-24 06:05] LABS: BASOPHILS 0 % (0-2); EOSINOPHILS 0.2 % (0-7); HEMATOCRIT 27.5 % (36.0-48.0); HEMOGLOBIN 9.3 g/dL (12-16); IMMATURE GRANULOCYTES 0.7 % (0-5); LYMPHOCYTES 12.3 % (15-50); MCH 30.7 pg (26.0-34.0); MCHC 33.8 g/dL (31.0-37.0); MCV 90.8 fL (80.0-100.0); MEAN PLATELET VOLUME 10.1 fL (7.4-10.4); MONOCYTES 3.6 % (2-11); NEUTROPHILS 83.2 % (40-80); PLATELET COUNT 227 10x3/uL (130-400); RBC 3.03 10x6/uL (4.00-5.40); RDW 14.9 % (11.5-14.5); WBC 5.6 10x3/uL (4.8-10.8)
--- NOTE | 2017-03-24 06:26 | NUR ---
NO CHANGES FROM PREVIOUS ASSESSMENT. CALL LIGHT IN REACH. WILL CONTINUE TO MONITOR.
[2017-03-24 06:43] LABS: ANION GAP 13.4 mmol/L (8-16); CALCIUM 8.1 mg/dL (8.5-10.1); CARBON DIOXIDE 24.3 mmol/L (21.0-32.0); CREATININE - SERUM 2.2 mg/dL (0.6-1.3); PHOSPHOROUS 5.3 mg/dL (2.5-4.9)
[2017-03-24 06:47] LABS: POTASSIUM - SERUM 3.7 mmol/L (3.5-5.1)
[2017-03-24 07:44] VITALS: BP 158/71
--- NOTE | 2017-03-24 08:25 | NUR ---
INTRODUCED MYSELF TO PT PRIMARY RN FOR TODAYS SHIFT. PT IS ALERT AND ORIENTED SITTING UP IN BED RESTING WITH DAUGHTER AT BEDSIDE. PT C/O GENERALIZED PAIN ALL OVER REQUESTING AND PROVIDED WITH PRN PAIN MEDICATION. ALSO ADMINISTERED MORNING MEDICATIONS AND INITIATED IVPB INFUSING VIA R.FA PIV WITH DRSG CDI AND SWAB CAPS IN USE. PT HAS A RODAS DRAINING TO GRAVITY OFF R.SIDE OF BED, STAT LOCK SECURED TO R.INNER THIGH. PT WOULD LIKE TO EAT BREAKFAST AND DENIES RODAS CARE AT THIS TIME, WILL TRY AGAIN LATER. REPOSITIONED PT UP IN BED TO EAT BREAKFAST. NC IN PLACE @2L. WHEEZING THROUGHOUT ALL LOBES NOTED, ENCOURAGED PT TO DEEP BREATHE AND COUGH, SHE STATES SHE COUGHED UP SOME YELLOW PHELGM. PT DENIES ANY FURTHER NEEDS AT THIS TIME. CL IN REACH, BED IN LOWEST, SIDE RAILS X2. WILL CPOC.
--- NOTE | 2017-03-24 09:34 | NUR ---
PT UP TO BEDSIDE CHAIR WITH THERAPY TRANSFERRED WELL SLIGHTLY SOB. ENCOURAGED DEEP BREATHING IN CHAIR. PT RESTING AND STATES SHE IS COMFORTABLE. NO FURTHER NEEDS AT THIS TIME.
--- NOTE | 2017-03-24 11:24 | NUR ---
FSBS 143. NO COVERAGE REQUIRED PER SS INSULIN. PT SITTING UP IN HER CHAIR RESTING COMFORTABLY. DENIES ANY CURRENT PAIN OR NEEDS. CL IN REACH. WILL CPOC.
[2017-03-24 12:19] VITALS: BP 132/60
[2017-03-24 15:51] VITALS: BP 133/73
--- NOTE | 2017-03-24 19:25 | NUR ---
ASSESSMENT COMPELTE, NO S/S DISTRESS NOTED, WILL CONT TO MONITOR.
[2017-03-24 19:49] VITALS: BP 155/47
--- NOTE | 2017-03-24 20:26 | NUR ---
HS MEDS GIVEN, BS 120, NO COVERAGE NEEDED PER S/S. DIALUDID 0.5 MG GIVEN FOR C/O GENERALIZED PAIN, RATES PAIN AT A 10 ON PAIN SCALE. FAMILY AT BED SIDE.
[2017-03-24 23:50] VITALS: BP 144/71
--- NOTE | 2017-03-25 00:03 | NUR ---
SUPERVISOR ELECTRONICS PROCESSING AT BEDSIDE FOR VS. NEEDS ADDRESSED. CALL LIGHT IN REACH. WILL CONT TO MONITOR.
--- NOTE | 2017-03-25 02:14 | NUR ---
RESTING WITH EYES CLOSED, RESPERATIONS EVEN, NO S/S DISTRESS NOTED.
[2017-03-25 03:39] VITALS: BP 170/86
[2017-03-25 05:32] LABS: BASOPHILS 0.1 % (0-2); EOSINOPHILS 0 % (0-7); HEMOGLOBIN 9.7 g/dL (12-16); IMMATURE GRANULOCYTES 0.6 % (0-5); LYMPHOCYTES 11.8 % (15-50); MCH 30.3 pg (26.0-34.0); MCHC 33.4 g/dL (31.0-37.0); MCV 90.6 fL (80.0-100.0); MEAN PLATELET VOLUME 9.7 fL (7.4-10.4); MONOCYTES 3.8 % (2-11); NEUTROPHILS 83.7 % (40-80); RDW 14.7 % (11.5-14.5)
[2017-03-25 06:05] LABS: PLATELET COUNT 278 10x3/uL (130-400); WBC 8.1 10x3/uL (4.8-10.8)
[2017-03-25 06:14] LABS: ANION GAP 12.7 mmol/L (8-16); CALCIUM 8.7 mg/dL (8.5-10.1); CREATININE - SERUM 2.1 mg/dL (0.6-1.3); PHOSPHOROUS 4.8 mg/dL (2.5-4.9); POTASSIUM - SERUM 3.7 mmol/L (3.5-5.1)
[2017-03-25 07:58] VITALS: BP 172/70
--- NOTE | 2017-03-25 08:57 | NUR ---
IV ACCESS-22 GAUGE INSERTED IN RIGHT HAND FOR ACCESS. HUNG MELISSA RN
[2017-03-25 10:17] LABS: CREATININE - URINE 59.3 mg/dL (30-125); PROTEIN - URINE 202.8 mg/dL (0.0-11.9)
[2017-03-25 10:21] LABS: APPEARANCE CLOUDY (CLEAR); COLOR YELLOW (YELLOW); LEUKOCYTE ESTERASE TRACE (NEGATIVE); NITRITE NEGATIVE (NEGATIVE); SPECIFIC GRAVITY 1.015 (1.005-1.020)
[2017-03-25 10:22] LABS: BILIRUBIN NEGATIVE (NEGATIVE); GLUCOSE NEGATIVE (NEGATIVE); KETONE NEGATIVE (NEGATIVE); PROTEIN 2+ mg/dL (NEGATIVE); UROBILINOGEN NORMAL (NORMAL); WHITE CELLS - URINE 0-5 /hpf (0-5)
[2017-03-25 10:23] LABS: BACTERIA FEW /hpf (NONE SEEN); EPITHELIAL CELLS 0-5 /hpf (0-5); RED CELLS - URINE >50 /hpf (0-5)
[2017-03-25 10:26] LABS: YEAST >1+ WITH HYPHAE /hpf (NONE SEEN)
--- NOTE | 2017-03-25 10:30 | NUR ---
L.AC PIV INFILTRATED. D/C PIV WITH CATHETER TIP FULLY INTACT. NEW PIV PLACED IN R.HAND X1 ATTEMPT VIA HUNG THE VASCULAR NURSE. PT SITTING UP IN BED RESTING QUIETLY. DENIES ANY CURRENT PAIN OR NEEDS. CL IN REACH. WILL CPOC.
--- NOTE | 2017-03-25 14:06 | NUR ---
Nutrition follow-up: Diet: Renal PO Intake 75-100% of meals Labs reviewed l+BM Wt: 217# PO intake good at this time RDN following.
[2017-03-25 15:58] VITALS: BP 193/76
--- NOTE | 2017-03-25 20:17 | NUR ---
SPOKE WITH SANDRA COLEY APN MECHANICAL STRIPER WITH DR CRUZ. ORDERS GIVEN THAT ITS OK TO RESTART IV DILAUDID 0.5 MG NEEDED FOR PAIN.
[2017-03-25 20:44] VITALS: BP 173/78
[2017-03-25 23:58] VITALS: BP 159/69
--- NOTE | 2017-03-26 02:06 | NUR ---
PERCOCET 1 TAB GIVEN FOR C/O PAIN, REPOSITIONED IN BED FOR COMFORT.
[2017-03-26 03:55] VITALS: BP 178/85
[2017-03-26 06:10] LABS: BASOPHILS 0 % (0-2); EOSINOPHILS 0 % (0-7); HEMATOCRIT 29.3 % (36.0-48.0); IMMATURE GRANULOCYTES 0.4 % (0-5); LYMPHOCYTES 12.2 % (15-50); MCH 30.8 pg (26.0-34.0); MCHC 34.1 g/dL (31.0-37.0); MCV 90.2 fL (80.0-100.0); MEAN PLATELET VOLUME 9.4 fL (7.4-10.4); MONOCYTES 8.2 % (2-11); NEUTROPHILS 79.2 % (40-80); PLATELET COUNT 272 10x3/uL (130-400); RBC 3.25 10x6/uL (4.00-5.40); RDW 14.8 % (11.5-14.5); WBC 8.9 10x3/uL (4.8-10.8)
[2017-03-26 06:41] LABS: ANION GAP 13.2 mmol/L (8-16); CALCIUM 8.6 mg/dL (8.5-10.1); CARBON DIOXIDE 26.1 mmol/L (21.0-32.0); CREATININE - SERUM 1.9 mg/dL (0.6-1.3); POTASSIUM - SERUM 3.3 mmol/L (3.5-5.1); THYROID STIMULATING HORMONE 1.68 uIU/mL (0.36-3.74)
[2017-03-26 07:38] VITALS: BP 171/82
--- NOTE | 2017-03-26 07:57 | NUR ---
PATIENT DOES NOT FEEL ABLE TO GET UP AND STAND FOR 2 CHEST FILMS.
--- NOTE | 2017-03-26 08:00 | NUR ---
24 HOUR URINE COLLECTION INITIATED VIA RODAS. WILL CONTINUE TO DRAIN AND PUT ON ICE SHE VOIDS.
--- NOTE | 2017-03-26 08:06 | EC ---
PATIENT:ROSE MARIE VILLEGAS DATE OF SERVICE: 03/20/17 SEX: F MEDICAL RECORD: [id number] DATE OF : 43 LOCATION:D.M2 D.213 AGE OF PATIENT: 72 ADMISSION DATE: 03/20/17 REFERRING PHYSICIAN: INTERPRETING PHYSICIAN: MARIAN MANDEL MD ECHOCARDIOGRAM REPORT ECHO CHARGES 4 ECHO COMPLETE CLINICAL DIAGNOSIS: A-FIB ECHOCARDIOGRAPHIC MEASUREMENTS (adult normal given) AC root (d.<3.7cm) 2.8 LV Septum d (<1.2 cm> 1.5 Valve Excursion 1.8 LV Septum (systole) 2.0 Left Atria (s.<4.0cm> 3.5 LVPW d(<1.2cm) 1.2 RV (d.<2.3cm) 2.8 LVPW (sytole) 1.7 LV diastole(<5.6CM) 5.6 MV E-F(>70mm/sec) LV systole 3.1 LVOT Diameter 1.8 MV exc.(>10mm) Est.ejection fraction (50-75%) Pericardial Effusion N DOPPLER: LVIT A 107 E 124 LA RVSP 38.2 LVOT 106 AOP1/2T Asc. Ao 164 RVOT 94.0 RA PA 124 AV Gradient Peak 11.0 AV Mean 5.1 AV Area 1.5 MV Gradient Peak 7.6 MV Mean 2.5 MV Area COMMENTS: Board Hammer Operator: Nunu HAMMEROE Admissions Manager:Raquel Lion TAPE# PACS DATE OF SERVICE: 03/21/2017 Echocardiogram FINDINGS: 1. Left ventricular chamber size is within normal limits. Left ventricular systolic function is normal. Overall ejection fraction estimated at 60%. 2. Left atrium is within normal limits at 3.5 cm. Right atrium and right ventricular chamber sizes are mildly dilated. 3. Valvular structures have normal structure and motion. ECHOCARDIOGRAM REPORT [id number] ROSE MARIE VILLEGAS 4. Doppler interrogation reveals mild mitral regurgitation, mild tricuspid regurgitation, no other valvular insufficiency or stenosis. Pulmonary systolic pressure is normal estimated at 38 mmHg. 5. No evidence of pericardial effusion or left ventricular thrombus. TRANSINT:[id number] Voice Confirmation ID: [id number] DOCUMENT ID: [id number] MARIAN MANDEL MD at 0806 CC: [id number] DICTATION DATE: 03/21/17 1443 ENSEMBLE MEMBER: 03/21/[address] [facility] [address] [id number]
[2017-03-26 08:46] LABS: COMPLEMENT C4 9.1 mg/dL (17.4-52.2)
[2017-03-26 09:23] LABS: ERYTHROCYTE SEDIMENTATION RATE 40 mm/hr (0-30)
[2017-03-26 12:16] VITALS: BP 179/81
--- NOTE | 2017-03-26 15:54 | NUR ---
PT REQUESTED PRN PAIN MEDICATIONS AND WAS PROVIDED WITH PRN DILAUDID VIA R.HAND PIV SITE. ALSO ADMINISTERED SCHEDULED LASIX. PT VOICED THANKS AND DENIES ANY FURTHER NEEDS AT THIS TIME. SITTING UP IN BEDSIDE CHAIR RESTING QUIETLY. WILL CPOC.
[2017-03-26 16:24] VITALS: BP 184/84
[2017-03-26 19:00] VITALS: BP 180/72
--- NOTE | 2017-03-26 19:26 | NUR ---
PT RECEIVED LYING IN BED RESTING QUIETLY AT THIS TIME WITH EYES CLOSED. AROUSED EASILY. ASSESSMENT COMPLETED PER FLOW SHEET AT THIS TIME. PT DENIES NEEDS AT THIS TIME. STATES SHE WOULD LIKE SOMETHING TO HELP HER SLEEP AT BEDSIDE. DENIES OTHER NEEDS. BED LOW. PHONE AND CALL LIGHT IN REACH. SRX2.
--- NOTE | 2017-03-26 22:08 | NUR ---
PM MEDS GIVEN AT THIS TIME. PT IV INFILTRATED. NEW IV STARTED VIA SCOTT WATKINS TO RIGHT CHEST WALL. PT DENIES OTHER NEEDS. BED LOW. PHONE AND CALL LIGHT IN REACH. SRX2.
[2017-03-27] VITALS (16 sets, daily range): BP systolic 136–187; BP diastolic 84–111
--- NOTE | 2017-03-27 00:20 | NUR ---
PT RESTING QUIETLY AT THIS TIME. AROUSED EASILY. DENIES NEEDS. BED LOW. PHONE AND CALL LIGHT IN REACH. SRX2.
--- NOTE | 2017-03-27 02:08 | NUR ---
PT RESTING QUIETLY AT THIS TIME. RESPIRATORY IN ROOM WITH PT. PT DENIES NEEDS AT THIS TIME. BED LOW. PHONE AND CALL LIGHT IN REACH. SRX2.
--- NOTE | 2017-03-27 04:06 | NUR ---
LASIX IVP GIVEN AT THIS TIME PER ORDERS. PT REQUESTS COFFEE. DENIES OTHER NEEDS. BED LOW. PHONE AND CALL LIGHT IN REACH. SRX2.
--- NOTE | 2017-03-27 04:41 | NUR ---
PT COMPLAINS OF TROUBLE BREATHING AT THIS TIME. PT O2 SAT 96% ON 3L O2. UPPED TO 4L AT THIS TIME VIA NC. PT O2 SAT 96% TO 99%. SAT PT HOB UP AT THIS TIME WELL. WILL CONTINUE TO MONITOR. PT 99 SINUS RHYTHM ON TELEMETRY.
--- NOTE | 2017-03-27 04:56 | NUR ---
PT O2 SAT 95% ON 4 LITERS O2. ENCOURAGED PT TO COUGH AT THIS TIME. WILL CONTINUE TO MONITOR.
--- NOTE | 2017-03-27 05:10 | NUR ---
RESPIRATORY IN ROOM ADMINISTERING BREATHING TREATMENT AT THIS TIME FOR SOB. WILL CONTINUE TO MONITOR.
--- NOTE | 2017-03-27 05:18 | NUR ---
PT REMAINS SINUS TACHYCARDIA ON TELEMETRY AT THIS TIME
--- NOTE | 2017-03-27 05:45 | NUR ---
SPOKE WITH SHAI JACINTO AT THIS TIME CONCERNING PT SOB. SHE STATES TO ORDER CBC, BMP, AND X-RAY STAT AT THIS TIME. ORDERS IN.
[2017-03-27 06:13] LABS: ANION GAP 14.5 mmol/L (8-16); CALCIUM 8.8 mg/dL (8.5-10.1); CARBON DIOXIDE 27.3 mmol/L (21.0-32.0); CREATININE - SERUM 1.8 mg/dL (0.6-1.3); MAGNESIUM - SERUM 1.8 mg/dL (1.8-2.4)
[2017-03-27 06:18] LABS: POTASSIUM - SERUM 3.8 mmol/L (3.5-5.1)
--- NOTE | 2017-03-27 06:18 | NUR ---
PT FSBS 141 AT THIS TIME.
[2017-03-27 07:17] LABS: BASOPHILS 0.1 % (0-2); EOSINOPHILS 0 % (0-7); HEMOGLOBIN 11.9 g/dL (12-16); IMMATURE GRANULOCYTES 0.8 % (0-5); LYMPHOCYTES 7.4 % (15-50); MCH 30.8 pg (26.0-34.0); MCV 90.7 fL (80.0-100.0); MEAN PLATELET VOLUME 9.1 fL (7.4-10.4); MONOCYTES 7.1 % (2-11); NEUTROPHILS 84.6 % (40-80); PLATELET COUNT 399 10x3/uL (130-400); RBC 3.86 10x6/uL (4.00-5.40); RDW 15.1 % (11.5-14.5); WBC 14.3 10x3/uL (4.8-10.8)
--- NOTE | 2017-03-27 07:24 | NUR ---
WHEN I ARRIVED DURING BEDSIDE REPORT PT IS WHEEZING AUDIBLY IN THE HALLWAY, COUGHING UP BLOODY SPUTUM CO SOB. PT WAS UPPED TO 5L NC AND NOW IS ON THE BIPAP DURING THE NIGHT. TALKED TO SANDRA DONOHUE SHE SAID TO PAGE DR ARANA AND DR FRIED. TALKED WITH DR ARANA HE ORDERED BUMEX DRIP, ORDERED. PAGING FARIHA.
[2017-03-27 07:32] LABS: PROTEIN - URINE 92.1 mg/dL (0.0-11.9)
[2017-03-27 09:17] LABS: HEPATITIS C ANTIBODY 0.1 (0.0-0.9)
--- NOTE | 2017-03-27 09:37 | NUR ---
NIGHT NURSE TENA COLLECTED 24 HOUR URINE AND TOOK IT TO THE LAB WHEN SHE LEFT, SHE DID NOT COLLECT LAB REPORT. CALLED LAB AND CONFIRMED THAT SHE DID TAKE TO THE LAB, SHE DID AND THEY HAVE IT. COLLECTED LAB REPORT
[2017-03-27 11:17] LABS: ANA REFLEX - DIRECT Negative (Negative)
--- NOTE | 2017-03-27 11:52 | NUR ---
CALLED TO PT ROOM BY RESPIRATORY THERAPIST. PT NOT TOLERATING BIPAP AND IN RESPIRATORY DISTRESS. SANDRA ON FLOOR ASKED SANDRA TO SEE PT, SHES NOT IMPROVING WITH BUMEX DRIP. SANDRA GAVE ORDER TO SEND TO ICU. CALLED HOUSE [facility] AND ASKED FOR BED. PT GIVEN ATIVAN TO CALM DOWN. ICU QASIM CALLED AND ASKED PT STATUS, GAVE HER REPORT OF WHAT PT WAS DOING. SHE STATES ICU IS FULL AND TO TRY DR KESSLER ORDER OF BUMEX 1 MG ONE TO SEE IF THAT HELPS WHILE WE ARE WAITING ON A BED. WILL DO.
--- NOTE | 2017-03-27 12:21 | NUR ---
PT IS STABLE ON BIPAP. DAUGHTER IN LAW AT BEDSIDE AND CALLING FAMILY IN. STILL WAITING ON BED IN ICU. BUMEX IV WAS GIVEN PER ORDER. WILL CONT TO MONITOR
--- NOTE | 2017-03-27 12:33 | NUR ---
PATRICIA MURRIETA CALLED WITH BED NUMBER [id number]. CALLED REPORT TO ICU, QASIM SAID THE RECEIVING NURSE WAS NOT IN THE UNIT AND THEY WOULD CALL ME BACK WHEN THEY GOT THERE.
[2017-03-27 13:05] LABS: CREATININE - URINE 22.7 mg/dL (30-125)
--- NOTE | 2017-03-27 13:14 | NUR ---
CALLED TO PT ROOM BY FAMILY PT RESPIRATION RATE IS PICKING UP. HER RR IS 34-40. O2 SATS ARE 86% ON 40% BIPAP, FAMILY AT BEDSIDE WONDERING WHAT IS TAKING SO LONG TO GET TO ICU. CALLED ICU AGAIN, THEY SAY THAT PRETTY IS STILL NOT OVER IN ICU YET, THEY ARE PAGING HER OVERHEAD. PT RR ARE CURRENTLY 24 AND O2 SAT IS 90% ON 40% BIPAP, WILL CONT TO MONITOR CLOSELY UNTIL I CAN TRANSFER PT.
--- NOTE | 2017-03-27 13:35 | NUR ---
CALLED REPORT TO VALERY IN ICU. TRANSFERRING TO ROOM [id number]
--- NOTE | 2017-03-27 13:40 | NUR ---
REC'D PT FROM SURY CHAVEZ, PT AAOX4, NO C/O PAIN, VSS, BIPAP 50%, RIGHT UPPER CHEST PIV WITH FLUIDS INFUSING, SEE FLOW SHEET. ROOM FREE OF CLUTTER, CALL LIGHT IN REACH, WILL CONTINUE TO MONITOR PT.
--- NOTE | 2017-03-27 14:22 | NUR ---
Nutrition follow-up: Pt is now in ICU due to breathing issues. Diet: ADA consistent CHO PO intake has been ~50%; pt has now been experiencing N/V. Labs reviewed Wt: 217# RDN will continue to monitor patients progress.
--- NOTE | 2017-03-27 15:00 | NUR ---
PT FAMILY AT THE BEDSIDE, VSS, ALL QUESTIONS ANSWERED, WILL CONTINUE TO MONITOR PT.
--- NOTE | 2017-03-27 15:08 | NUR ---
PT FAMILY AT THE BEDSIDE, ALL QUESTIONS ANSWERED, VSS, WILL CONTINUE TO MONITOR PT.
[2017-03-27 15:26] LABS: ANTI-STREPTOLYSIN O 4687.9 IU/mL (0.0-200.0)
--- NOTE | 2017-03-27 16:50 | NUR ---
PT ATTEMPTED NC FOR DINNER, PT STATED "I NEED AIR", PT PLACED BACK ON BIPAP, PT WAS SATISIFIED WITH BIPAP, NO C/O OF "NEEDING AIR" WILL CONTINUE TO MONITOR PT.
--- NOTE | 2017-03-27 18:00 | NUR ---
PT FAMILY AT THE BEDSIDE, ALL QUESTIONS ANSWERED, VSS, WILL CONTINUE TO MONITOR PT.
--- NOTE | 2017-03-27 19:00 | NUR ---
REPORT RECEIVED INITIAL ASSESSMENT COMPLETE, PLEASE SEE FLOW SHEET FOR DETAILS. DENIES PAIN/NEEDS ATT, BED LOW AND LOCKED, CALL LIGHT IN REACH. VSS, WILL CONTINUE POC.
--- NOTE | 2017-03-27 21:00 | NUR ---
FAMILY IN ROOM, PT REQUESTED FOOD, THIS WAS PROVIDED. PT TOOK MEDS AND ATE ONE BITE OF FOOD BEFORE REQUESTING BIPAP AGAIN. BED LOW AND LOCKED CALL LIGHT IN REACH, VSS, WILL CONTINUE POC.
--- NOTE | 2017-03-27 23:00 | NUR ---
REASSESSMENT COMPLETE, PLEASE SEE FLOW SHEETS FOR DETAILS. BED LOW AND LOCKED, CALL LIGHT IN REACH, VSS, WILL CONTINUE POC.
[2017-03-28] VITALS (24 sets, daily range): BP systolic 114–141; BP diastolic 62–103
--- NOTE | 2017-03-28 01:00 | NUR ---
PT RESTING, VSS, BED LOW AND LOCKED, CALL LIGHT IN REACH, WILL CONTINUE POC.
--- NOTE | 2017-03-28 03:00 | NUR ---
REASSESSMENT COMPLETE, PLEASE SEE FLOW SHEETS FOR DETAILS. COMPLAINS OF PAIN, WILL GIVE PAIN MEDS ORDERED. VSS, BED LOW AND LOCKED, CALL LIGHT IN REACH. WILL CONTINUE POC.
--- NOTE | 2017-03-28 03:23 | NUR ---
PATIENT REFUSED TO ALLOW RT TO AQUIRE AN ABG FOR LAB RESULTS.
--- NOTE | 2017-03-28 05:00 | NUR ---
PT RESTING, NO S&S OF ACUTE DISTRESS NOTED, VSS, BED LOW AND LOCKED WITH CALL LIGHT IN REACH. WILL CONTINUE POC.
[2017-03-28 05:10] LABS: BASOPHILS 0 % (0-2); EOSINOPHILS 0 % (0-7); HEMATOCRIT 35.2 % (36.0-48.0); HEMOGLOBIN 11.7 g/dL (12-16); IMMATURE GRANULOCYTES 0.5 % (0-5); LYMPHOCYTES 5.8 % (15-50); MCH 30.4 pg (26.0-34.0); MCHC 33.2 g/dL (31.0-37.0); MCV 91.4 fL (80.0-100.0); MEAN PLATELET VOLUME 9.4 fL (7.4-10.4); MONOCYTES 5.4 % (2-11); NEUTROPHILS 88.3 % (40-80); PLATELET COUNT 399 10x3/uL (130-400); RBC 3.85 10x6/uL (4.00-5.40); RDW 15.4 % (11.5-14.5); WBC 14.9 10x3/uL (4.8-10.8)
[2017-03-28 05:34] LABS: ALBUMIN 2.6 g/dL (3.4-5.0); BILIRUBIN - TOTAL 0.37 mg/dL (0.2-1.3); CALCIUM 8.9 mg/dL (8.5-10.1); CARBON DIOXIDE 30.8 mmol/L (21.0-32.0); CREATININE - SERUM 1.8 mg/dL (0.6-1.3); MAGNESIUM - SERUM 1.7 mg/dL (1.8-2.4); PHOSPHOROUS 3.4 mg/dL (2.5-4.9); POTASSIUM - SERUM 3.8 mmol/L (3.5-5.1); PROTEIN - SERUM 7.3 g/dL (6.4-8.2)
--- NOTE | 2017-03-28 07:00 | NUR ---
REC'D REPORT AND RESUMED CARE, AWAKE WITH BIPAP IN USE, VSS, DENIES PAIN, ASSESSMENT COMPLETE PER FLOWSHEET, REPOSITIONED UP AND TO BACK WITH HEELS FLOATED, WILL CONTINUE WITH POC.
--- NOTE | 2017-03-28 07:30 | NUR ---
REPOSITIONED UP IN BED, BIPAP OFF FOR BREAKFAST, ATTEMPT TO LEAVE ROOM TO GET TRAY, STATES SHE NEEDS AIR, CAN'T BREATH, WANTS BIPAP BACK ON AND NO BREAKFAST
--- NOTE | 2017-03-28 08:00 | NUR ---
CALL LIGHT ON WANTS DAUGHTER IN LAW OLIVIA CALLED TO BEDSIDE, STATES SHE NEEDS TO TELL HER SOMETHING, OLIVIA TO BEDSIDE
--- NOTE | 2017-03-28 08:35 | NUR ---
AGITATED, WANTS IPAP MASK OFF AND WANTS WATER, MASK OFF, GIVEN SIPS OF WATER, BIPIPAF BACK ON, WILL CONTINUE WITH POC
--- NOTE | 2017-03-28 08:50 | NUR ---
VERY ANXIOUS, ATIVAN 1 MG IVP GIVEN, C/O PAIN 5/10 IN CHEST, PERCOCET, 10/325 GIVEN, MORNING MEDS GIVEN WELLWITH SIPS OF WATER, DC HERRERA AT BEDSIDE, BIPAP ON AT 60 % FIO2.
--- NOTE | 2017-03-28 09:18 | NUR ---
DECREASED FIO2 TO 50%.
--- NOTE | 2017-03-28 09:48 | NUR ---
Nutrition follow-up: Diet: ADA consistent CHO PO intake poor due to breathing issues. Pt will not take BIPAP off long enough to eat; has been refusing meals. Labs reviewed Wt: 217# Pt not meeting estimated nutritional needs at this time. Recommend NGT placement and TF of Osmolite 1.5 son started at 25 ml/hr with gradual increase to goal of 50 ml/hr. RDN following.
--- NOTE | 2017-03-28 11:00 | NUR ---
CONTINUES ON BIPAP, NO ACUTE CHANGE FROM PREVIOUS ASSESSMENT, VSS, CALL LIGHT IN REACH, VOICES NO NEEDS AT THIS TIME
--- NOTE | 2017-03-28 15:00 | NUR ---
SLEEPING WITH BIPAP IN USE, VSS, AROUSES TO VERBAL STIMULI, DENIES PAIN, REPOSITIONED UP AND TO BACK, CALL LIGHT IN REACH, NO NEEDS AT THIS TIME
--- NOTE | 2017-03-28 16:45 | NUR ---
CVL PLACED BY DR LOWERY, RIGHT SUBCLAVIAN, BIO PATCH AND DRESSING PLACED PER PROTOCAL
--- NOTE | 2017-03-28 17:30 | NUR ---
DINNER TRAY TO BEDSIDE, ASSIST WITH SET UP AND EATING, BITES AND SIPS ONLY
--- NOTE | 2017-03-28 18:15 | NUR ---
FAMILY AT BEDSIDE, STATUS UPDATED, VOICES NO NEEDS AT THIS TIME
--- NOTE | 2017-03-28 20:40 | NUR ---
REPORT RECIEVED, INITIAL ASSESSMENT COMPLETE, PLEASE SEE FLOW SHEETS FOR DETAILS. COMPLAINS OF PAIN 8/10 EVERYWHERE, ASKING FOR PAIN MEDS, WILL GIVE ORDERED. VSS ATT, BED LOW AND LOCKED, CALL LIGHT IN REACH. PT REFUSES SCD'S. WILL CONTINUE POC.
--- NOTE | 2017-03-28 23:00 | NUR ---
REASSESSMENT COMPLETE, PLEASE SEE FLOW SHEETS FOR DETAILS. BED LOW AND LOCKED, CALL LIGHT IN REACH. ASKED FOR DRINK AND TO BLOW HER NOSE, SOME ASSISTANCE WAS GIVEN WITH REMOVING BIPAP FOR HER TO DO OTHERS ON HER OWN. DENIES NEEDS ATT. COMPLAINS OF PAIN IN CHEST 5/10, NOTIFIED HER IT WOULD BE SOME TIME BEFORE WE COULD GIVE HER ANYMORE PAIN MEDS. SHE SAID SHE UNDERSTOOD THIS. TURNED LIGHTS DOWN AND POSITIONED FOR COMFORT. NO OTHER NEEDS ATT, VSS, WILL CONTINUE POC.
[2017-03-29] VITALS (24 sets, daily range): BP systolic 114–142; BP diastolic 59–740
--- NOTE | 2017-03-29 | NUR ---
REPLACED TUBING AND MEDS AND STARTED ALL IV MEDS IN NEW RIGHT EXTERNAL JUGULAR CVL. DATE STICKERS AND SWAB CAPS ALL IN PLACE.
--- NOTE | 2017-03-29 01:00 | NUR ---
PT RESTING, NO S&S OF ACUTE DISTRESS NOTED, VSS, BED LOW AND LOCKED, CALL LIGHT IN REACH. WILL CONTINUE POC.
--- NOTE | 2017-03-29 03:00 | NUR ---
REASSESSMENT COMPLETE, PLEASE SEE FLOW SHEETS FOR DETAILS. DENIES PAIN/NEEDS ATT, BED LOW AND LOCKED, CALL LIGHT IN REACH. VSS, WILL CONTINUE POC.
[2017-03-29 04:26] LABS: BASOPHILS 0 % (0-2); EOSINOPHILS 0 % (0-7); HEMATOCRIT 32.7 % (36.0-48.0); IMMATURE GRANULOCYTES 0.5 % (0-5); LYMPHOCYTES 5.5 % (15-50); MCH 30.7 pg (26.0-34.0); MCHC 33.6 g/dL (31.0-37.0); MCV 91.3 fL (80.0-100.0); MEAN PLATELET VOLUME 9.4 fL (7.4-10.4); MONOCYTES 4.5 % (2-11); NEUTROPHILS 89.5 % (40-80); PLATELET COUNT 325 10x3/uL (130-400); RBC 3.58 10x6/uL (4.00-5.40); RDW 15.6 % (11.5-14.5); WBC 14.7 10x3/uL (4.8-10.8)
[2017-03-29 04:58] LABS: ALBUMIN 2.3 g/dL (3.4-5.0); BILIRUBIN - TOTAL 0.4 mg/dL (0.2-1.3); CALCIUM 8.8 mg/dL (8.5-10.1); CARBON DIOXIDE 30.3 mmol/L (21.0-32.0); CREATININE - SERUM 1.8 mg/dL (0.6-1.3); PROTEIN - SERUM 6.5 g/dL (6.4-8.2)
--- NOTE | 2017-03-29 05:00 | NUR ---
PT RESTING, NO S&S OF ACUTE DISTRESS NOTED. VSS, BED LOW AND LOCKED, CALL LIGHT IN REACH, WILL CONTINUE POC.
[2017-03-29 05:08] LABS: ANION GAP 9.9 mmol/L (8-16); MAGNESIUM - SERUM 2.2 mg/dL (1.8-2.4); POTASSIUM - SERUM 3.2 mmol/L (3.5-5.1); TROPONIN-I 0.958 ng/mL (0.000-0.060)
--- NOTE | 2017-03-29 19:00 | NUR ---
REPORT RECEIVED, INITIAL ASSESSMENT COMPLETE, PLEASE SEE FLOW SHEETS FOR DETAILS. C/O ANXIETY ASKING FOR ATIVAN, WILL GIVE ORDERED. C/O PAIN, INFORMED HER IT WOULD BE 2200 BEFORE SHE COULD HAVE ANY MORE PAIN MEDS. SHE UNDERSTOOD THIS. VSS, BED LOW AND LOCKED, CALL LIGHT IN REACH. WILL CONTINUE POC.
--- NOTE | 2017-03-29 19:58 | NUR ---
REPOSITIONED IN BED, PROVIDED MATERIALS FOR CLEANSING OF DENTURE FOR AFTER VISITATION TIME.
--- NOTE | 2017-03-29 21:00 | NUR ---
FAMILY AT BEDSIDE, ALL QUESTIONS ANSWERED. VSS, BED LOW AND LOCKED, CALL LIGHT IN REACH. WILL CONTINUE POC.
--- NOTE | 2017-03-29 23:00 | NUR ---
REASSESSMENT COMPLETE, PLEASE SEE FLOW SHEETS FOR DETAILS. BM CLEANED UP, PARTIAL LINEN CHANGE PROVIDED. ORAL CARE PROVIDED. BED LOW AND LOCKED, VSS, WILL CONTINUE POC.
--- NOTE | 2017-03-29 23:00 | NUR ---
REASSESSMENT COMPLETE, PLEASE SEE FLOW SHEETS FOR DETAILS. BED LOW AND LOCKED, CALL LIGHT IN REACH. VSS, WILL CONTINUE POC.
[2017-03-30] VITALS (39 sets, daily range): BP systolic 105–135; BP diastolic 53–94
--- NOTE | 2017-03-30 01:00 | NUR ---
PT RESTING, NO S&S OF ACUTE DISTRESS NOTED. BED LOW AND LOCKED, CALL LIGHT IN REACH. VSS, WILL CONTINUE POC.
--- NOTE | 2017-03-30 03:00 | NUR ---
REASSESSMENT COMPLETE, PLEASE SEE FLOW SHEETS FOR DETAILS. BED LOW AND LOCKED, CALL LIGHT IN REACH. SIPS OF WATER PROVIDED ATT, VSS, WILL CONTINUE POC.
--- NOTE | 2017-03-30 04:00 | NUR ---
REQUESTED CRACKERS TO EAT, THIS WAS PROVIDED. OFFERED JUICE AND CHICKEN BROTH WELL, PT ACCEPTED THESE ALSO. ALSO ASKED FOR PAIN MEDS PAIN 8/10, THIS WAS ADMINISTERED PER ORDERS. BED LOW AND LOCKED, CALL LIGHT IN REACH. WILL MONITOR.
[2017-03-30 04:18] LABS: BASOPHILS 0.1 % (0-2); EOSINOPHILS 0 % (0-7); HEMATOCRIT 31.9 % (36.0-48.0); HEMOGLOBIN 10.6 g/dL (12-16); IMMATURE GRANULOCYTES 0.5 % (0-5); LYMPHOCYTES 3.8 % (15-50); MCH 30.5 pg (26.0-34.0); MCHC 33.2 g/dL (31.0-37.0); MCV 91.7 fL (80.0-100.0); MEAN PLATELET VOLUME 9.4 fL (7.4-10.4); MONOCYTES 5.2 % (2-11); NEUTROPHILS 90.4 % (40-80); PLATELET COUNT 322 10x3/uL (130-400); RBC 3.48 10x6/uL (4.00-5.40); RDW 15.8 % (11.5-14.5); WBC 16.2 10x3/uL (4.8-10.8)
[2017-03-30 04:50] LABS: ALBUMIN 2.3 g/dL (3.4-5.0); ALKALINE PHOSPHATASE 52 U/L (46-116); ALT (SGPT) 28 U/L (10-68); BILIRUBIN - TOTAL 0.36 mg/dL (0.2-1.3); CALC OSMOLALITY 301 mosm/kg (275-300); CALCIUM 8.8 mg/dL (8.5-10.1); CARBON DIOXIDE 31.3 mmol/L (21.0-32.0); CHLORIDE - SERUM 99 mmol/L (98-107); CREATININE - SERUM 1.9 mg/dL (0.6-1.3); GLUCOSE 165 mg/dL (74-106); MAGNESIUM - SERUM 2.1 mg/dL (1.8-2.4); PHOSPHOROUS 3.6 mg/dL (2.5-4.9); POTASSIUM - SERUM 3.4 mmol/L (3.5-5.1); PROTEIN - SERUM 6.5 g/dL (6.4-8.2); SODIUM 136 mmol/L (136-145); UREA NITROGEN 84 mg/dL (7-18); eGFR NON AFRICAN AMERICAN 27 mL/min (90-120)
--- NOTE | 2017-03-30 04:51 | NUR ---
PROVIDED RODAS CARE, UPON CLEANSING OF THE INNER LABIA, BRIGHT RED BLOOD ON WIPES. CHECKED STAT LOCK AND THE TUBING WAS NOT POSITIONED CORRECTLY IN STAT LOCK AND WAS ALLOWING BAG WEIGHT TO PULL ON CATHETER. BLOOD IS ASSUMED TO BE FROM MEATAL TRAUMA FROM RODAS. PT STATED SHE HAS NOT EXPERIENCED ANY POST MENOPAUSAL BLLEDING BEFORE. CATHETER WAS PLACED CORRECTLY IN STAT LOCK AND CLEASING COMPLETED. PT DENIES PAIN AT THE SITE. BED LOW AND LOCKED, CALL LIGHT IN REACH. VSS, WILL CONTINUE POC.
--- NOTE | 2017-03-30 05:53 | NUR ---
BIPAP OFF FOR POTASSIUM REPLACEMENT AND VISITATION. BED LOW AND LOCKED, CALL LIGHT IN REACH. VSS, WILL CONTINUE POC.
[2017-03-30 06:00] LABS: PRO BNP 136850 pg/mL (0-125)
--- NOTE | 2017-03-30 19:43 | NUR ---
REPORT RECEIVED. FAMILY AT BEDSIDE AT THIS TIME PROVIDING BEDBATH. DENIES NEEDS AT THIS TIME.
--- NOTE | 2017-03-30 21:14 | NUR ---
PT GLUCOSE TESTED. READING 134. PER SLIDING SCALE, NO INSULIN GIVEN. FAMILY AT BEDSIDE AT THIS TIME. PT HAS BEEN GIVEN HER 9PM MEDICATIONS AND IS ON BIPAP. DENIES NEEDS. VSS.
--- NOTE | 2017-03-30 21:37 | NUR ---
SHIFT ASSESSMENT FOR 1899 ENTERED 0700 IN DOCUMENTATION.
--- NOTE | 2017-03-30 23:30 | NUR ---
REPORT RECEIVED AND CARE ASSUMED. SHIFT ASSESSMENT COMPLETED PER FLOW SHEET.
[2017-03-31] VITALS (16 sets, daily range): BP systolic 123–166; BP diastolic 62–83
[2017-03-31 06:18] LABS: BASOPHILS 0.1 % (0-2); EOSINOPHILS 0 % (0-7); HEMATOCRIT 30.9 % (36.0-48.0); HEMOGLOBIN 10.3 g/dL (12-16); IMMATURE GRANULOCYTES 0.8 % (0-5); LYMPHOCYTES 5.4 % (15-50); MCH 30.7 pg (26.0-34.0); MCHC 33.3 g/dL (31.0-37.0); MEAN PLATELET VOLUME 9.4 fL (7.4-10.4); MONOCYTES 5.4 % (2-11); NEUTROPHILS 88.3 % (40-80); PLATELET COUNT 307 10x3/uL (130-400); RBC 3.36 10x6/uL (4.00-5.40); RDW 15.8 % (11.5-14.5); WBC 14.5 10x3/uL (4.8-10.8)
[2017-03-31 07:11] LABS: ALBUMIN 2.2 g/dL (3.4-5.0); ANION GAP 9.9 mmol/L (8-16); BILIRUBIN - TOTAL 0.35 mg/dL (0.2-1.3); CALCIUM 8.8 mg/dL (8.5-10.1); CARBON DIOXIDE 31.4 mmol/L (21.0-32.0); CREATININE - SERUM 2.1 mg/dL (0.6-1.3); PHOSPHOROUS 3.3 mg/dL (2.5-4.9); POTASSIUM - SERUM 3.3 mmol/L (3.5-5.1); PROTEIN - SERUM 6.3 g/dL (6.4-8.2)
[2017-03-31 08:10] LABS: UPE - ALPHA 1 GLOBULIN 5.3 % (NOT ESTAB.); UPE - ALPHA 2 GLOBULIN 3.7 % (NOT ESTAB.); UPE - BETA GLOBULIN 8.6 % (NOT ESTAB.); UPE - GAMMA GLOBULIN 6.8 % (NOT ESTAB.)
--- NOTE | 2017-03-31 09:26 | NUR ---
BREAKFAST TRAY GIVEN AND PT FEEDS SELF WITH OUT PROBLEMS.
--- NOTE | 2017-03-31 10:25 | EC ---
PATIENT:ROSE MARIE VILLEGAS DATE OF SERVICE: 03/20/17 SEX: F MEDICAL RECORD: [id number] DATE OF : 41 LOCATION:[facility] [place] D230 AGE OF PATIENT: 72 ADMISSION DATE: 03/20/17 REFERRING PHYSICIAN: INTERPRETING PHYSICIAN: MARIAN XIAO MD ECHOCARDIOGRAM REPORT ECHO CHARGES 5 ECHO LIMITED CLINICAL DIAGNOSIS: REASSESS EF DUE CHANGE ELEVATED PORTIME AND BNP ECHOCARDIOGRAPHIC MEASUREMENTS (adult normal given) AC root (d.<3.7cm) 3.2 LV Septum d (<1.2 cm> 1.1 Valve Excursion 1.9 LV Septum (systole) 1.4 Left Atria (s.<4.0cm> 3.8 LVPW d(<1.2cm) 1.5 RV (d.<2.3cm) 3.3 LVPW (sytole) 1.7 LV diastole(<5.6CM) 6.2 MV E-F(>70mm/sec) LV systole 4.9 LVOT Diameter 1.8 MV exc.(>10mm) Est.ejection fraction (50-75%) Pericardial Effusion N DOPPLER: LVIT A 107 E 124 LA RVSP 38.2 LVOT 106 AOP1/2T Asc. Ao 164 RVOT 94.0 RA PA 124 AV Gradient Peak 11.0 AV Mean 5.1 AV Area 1.5 MV Gradient Peak 7.6 MV Mean 2.5 MV Area COMMENTS: Jordan Worker: Raquel RUBIO Patch Washer:1 Dr. Xiao TAPE# PACS DATE OF SERVICE: 03/28/2017 Echocardiogram FINDINGS: 1. Left ventricular chamber size is dilated. Left ventricular systolic function is moderately reduced, overall ejection fraction 30% to 35%. This is a significant change from previous echo at 55%. 2. Left atrium, right atrium, and right ventricular chamber sizes are within normal limits. ECHOCARDIOGRAM REPORT [id number] ROSE MARIE VILLEGAS 3. Valvular structures have normal structure and motion. 4. Doppler interrogation reveals mild mitral regurgitation. No other valvular insufficiency or stenosis. 5. No evidence of pericardial effusion or left ventricular thrombus. TRANSINT:[id number] Voice Confirmation ID: [id number] DOCUMENT ID: [id number] MARIAN XIAO MD at 0396 CC: [id number] DICTATION DATE: 03/28/17 1523 RESERVATION CLERK: 03/28/17 1600 ADM IN [facility] [address] [place] [address]
--- NOTE | 2017-03-31 10:25 | CN ---
PATIENT NAME:ROSE MARIE ECHEVARRIA MEDICAL RECORD: [id number] : 41 LOCATION:[id number] ADMIT DATE: 03/20/17 ACCOUNT: [id number] CONSULTING PHYSICIAN: MARIAN MANDEL MD REFERRING PHYSICIAN: GRABIEL MEDELLIN MD DATE OF CONSULTATION: 03/28/2017 DIAGNOSES 1. Cardiomyopathy. 2. Congestive heart failure. 3. Respiratory distress. HISTORY OF PRESENT ILLNESS: Ms. Echevarria patient presents with respiratory distress felt to have pneumonia. Initially, her ejection fraction was normal at 55%. She was not having any chest pain or chest discomfort; however, she began having chest pain, chest discomfort this morning. Her blood pressure then decreased. She went into pulmonary edema. She is now on Bumex drip as well as a dobutamine drip. Initially, echocardiogram showed ejection fraction 55%. Repeat echocardiogram limited study for ejection fraction in light of her having chest pain showed an ejection fraction now in the 35% range. She is status post PTCA stent 3 to 4 years ago, not had any angina since. EKG was initially sinus rhythm with PACs. EKG has not been repeated at this time. Troponin has not been repeated. PHYSICAL EXAMINATION: GENERAL APPEARANCE: Well-nourished, well-developed, appears stated age. Level of distress, comfortable. PSYCHIATRIC: Mental status, alert, normal affect. Orientation, oriented to time, place and person. EYES: Lids and conjunctiva, noninjected. No discharge, no pallor. ENT: Lips, teeth, gums, normal dentition. Oropharynx, no cyanosis, no pallor. NECK: Carotid arteries, bilateral normal upstroke, no bruits, no thrills. JUGULAR VEINS: No jugular venous pressure or distention. CERVICAL LYMPH NODES: Nontender, nonenlarged. THYROID: Not enlarged. Nontender. No nodules. LUNGS: Respiratory effort, unlabored. CHEST: Normal curvature. No thoracic deformity. No chest wall tenderness. Percussion, resonant. Auscultation, clear. No wheezes, no rales, no rhonchi. CARDIOVASCULAR: Precordial exam, nondisplaced. No heaves or pericardial thrills. Rate and rhythm, regular. Heart sounds, normal S1, normal S2. No S3, no gallop, no rub. Systolic murmur, not heard. Diastolic murmur, not heard. EXTREMITIES: No cyanosis, no edema. Peripheral pulses, full and equal in all extremities, except as noted. No bruits appreciated. ABDOMEN: Soft, nondistended. Normal aorta. No bruit. Nontender. No masses. Liver, nontender, no hepatomegaly. Spleen, nontender, no splenomegaly. MUSCULOSKELETAL: No joint tenderness. No joint swelling. No erythema. NEUROLOGICAL: Normal gait, normal strength, normal tone. SKIN: Warm and dry. REVIEW OF SYSTEMS: The patient reports easy bruising but reports no swollen glands. The patient reports no fever, no night sweats, no significant weight gain, no significant weight loss. No significant exercise tolerance. The patient reports no dry eyes, no irritation, no vision change. Patient reports no difficulty hearing and no ear pain. Patient reports no frequent nose bleeds or nose and sinus problems. Patient reports on arm pain on exertion. No CONSULT REPORT [id number] ROSE MARIE ECHEVARRIA shortness of breath while lying down. No history of heart murmur. Patient reports no cough, no wheezing or coughing up blood. Patient reports no abdominal pain, no vomiting. Normal appetite. No diarrhea and not vomiting blood. No nausea and no constipation. Patient reports no incontinence. No difficulty urinating. No hematuria. No increased frequency. Patient reports no muscle aches. No weakness, no arthralgias, no back pain. No swelling of the extremities. Patient reports no abnormal mole, no jaundice, no rashes. Reports no loss of consciousness. No weakness and no numbness. No seizures, dizziness, or headaches. The patient reports no depression, no sleep disturbance, feeling safe in a relationship and no alcohol abuse. Patient reports on fatigue. Reports no runny nose or sinus pressure. No itching, no hives, and no frequent sneezing. OVERALL IMPRESSION: Most likely, the etiology of her decreased ejection fraction and chest pain is new hemodynamically significant coronary artery disease, but she remains in pulmonary edema would continue the dobutamine and continue the Bumex drip. Hopefully, this will clear the pulmonary edema and then proceed with coronary angiography once she is more stable from a respiratory standpoint. TRANSINT:[id number] Voice Confirmation ID: [id number] DOCUMENT ID: [id number] MARIAN MANDEL MD at 1024 CC: [id number] DICTATION DATE: 03/28/17 1326 [place] CLERK: 03/28/17 1516 ADM IN [facility] [address] [place] [id number]
--- NOTE | 2017-03-31 12:01 | NUR ---
Nutrition Follow Up: Chart reviewed. Pt is eating 88% meal avg on a diabetic diet. I<O. No new wt to assess. +BM 03/26/17. Labs reviewed - BUN, Cr, Glucose elevated. Meds noted including Solu-Medrol, Bumex, Zofran, Humalog. Rec continue current diet. RD will continue to monitor pt progress.
--- NOTE | 2017-03-31 15:18 | NUR ---
RECIEVED FROM ICU. ALERT AND ORIENTED. TELEMERTY SHOWS SR. FOR CATH TODAY
[2017-03-31 16:13] LABS: ANCA - ANTIMYELOPEROXIDASE <9.0 U/mL (0.0-9.0); ANCA - ANTIPROTEINASE 3 <3.5 U/mL (0.0-3.5); ANCA - ATYPICAL <1:20 titer (Neg:<1:20); ANCA - CYTOPLASMIC <1:20 titer (Neg:<1:20); ANCA - PERINUCLEAR <1:20 titer (Neg:<1:20)
--- NOTE | 2017-03-31 19:20 | NUR ---
RECIEVED SHIFT REPORT. PT IS LYING IN BED. ALERT AND ORIENTED AND ABLE TO VERBALIZE NEEDS. IV IS PATENT AND SALINE LOC AT THIS TIME. O2 @ 5 PER NASAL CANNULA. DRESSING TO RIGHT GROIN C/D/I. RODAS IS DRAINING URINE BY GRAVITY. PT STATES PAIN IS 8/10. NO NEEDS ARE VERBALIZED AT THIS TIME. DAUGHTER IS AT THE BEDSIDE. WILL CONTINUE TO MONITOR. SIDE RAILS ARE UP X 2. BED IS IN LOWEST POSITION. BED ALARM IS ON FOR SAFETY. CALL LIGHT IS WITHIN REACH.
--- NOTE | 2017-03-31 20:44 | NUR ---
SHIFT ASSESSMENT COMPLETED. IV SITED TO LEFT FOREARM X 3 ATTEMPTS. DOBUTAMINE STARTED PER ORDER. NS AND BUMEX STARTED PER ORDER. PT RECIEVED NO INSULIN PER SLIDING SCALE FOR PJDB=732. NO NEEDS ARE VERBALIZED AT THIS TIME. WILL MONITOR. DAUGHTER AT BEDSIDE. SIDE RAILS X 2. BED LOW. BED ALARM ON. CALL LIGHT IN REACH.
[2017-04-01] VITALS: BP 119/46
[2017-04-01 04:00] VITALS: BP 116/57
[2017-04-01 06:24] LABS: ALBUMIN 2.2 g/dL (3.4-5.0); ANION GAP 7.3 mmol/L (8-16); BILIRUBIN - TOTAL 0.41 mg/dL (0.2-1.3); CALCIUM 8.9 mg/dL (8.5-10.1); CARBON DIOXIDE 34.4 mmol/L (21.0-32.0); CREATININE - SERUM 2.1 mg/dL (0.6-1.3); POTASSIUM - SERUM 3.7 mmol/L (3.5-5.1)
[2017-04-01 06:27] LABS: PHOSPHOROUS 4.3 mg/dL (2.5-4.9)
[2017-04-01 06:59] LABS: BASOPHILS 0.1 % (0-2); EOSINOPHILS 0 % (0-7); HEMATOCRIT 30.7 % (36.0-48.0); HEMOGLOBIN 9.9 g/dL (12-16); IMMATURE GRANULOCYTES 0.4 % (0-5); MCH 30.2 pg (26.0-34.0); MCHC 32.2 g/dL (31.0-37.0); MCV 93.6 fL (80.0-100.0); MEAN PLATELET VOLUME 9.7 fL (7.4-10.4); MONOCYTES 3.8 % (2-11); NEUTROPHILS 88.7 % (40-80); PLATELET COUNT 289 10x3/uL (130-400); RBC 3.28 10x6/uL (4.00-5.40); WBC 13.9 10x3/uL (4.8-10.8)
--- NOTE | 2017-04-01 07:30 | NUR ---
RESTING QUIETLY RESP UNLABORED NAD NOTED
[2017-04-01 08:03] VITALS: BP 132/62
--- NOTE | 2017-04-01 08:36 | NUR ---
ASSESSMENT COMPLETED. TELEMERTY SHOWS SR AT 86. CATH SITE SOFT WITH NO BLEEDING OR SWEELING. O2 AT 5 L/M PER NC. RIGHT IJ IV. BUMEX DRIP AT 5CC/HR, NS AT KVO, AND DOBUTAMINE AT 14.3. RODAS CATH PATENT TO GRAVITY BAG. FAMILY AT BEDSIDE.
[2017-04-01 11:58] VITALS: BP 136/52
[2017-04-01 14:21] LABS: SPE - A/G RATIO 0.7 (0.7-1.7); SPE - ALPHA-1 GLOBULIN 0.3 g/dL (0.0-0.4); SPE - ALPHA-2 GLOBULIN 0.9 g/dL (0.4-1.0); SPE - BETA GLOBULIN 0.8 g/dL (0.7-1.3); SPE - GAMMA GLOBULIN 2.2 g/dL (0.4-1.8); SPE - M-SPIKE Not Observed g/dL (Not Observed); SPE - TOTAL PROTEIN 7.2 g/dL (6.0-8.5)
[2017-04-01 16:08] VITALS: BP 144/61
--- NOTE | 2017-04-01 18:39 | NUR ---
LYING QUIETLY. DENIES ANY NEEDSBI PAP ON, RODAS CATH PATENT. TELEMERTY SHOWS ST. WILL MONITOR
--- NOTE | 2017-04-01 20:31 | NUR ---
PATIENT AWAKE. FAMILY WITH HER. PT EATING HOMEMADE FOOD. BS 122-NO COVERAGE NEEDED. RODAS DRAINING WELL. MONITOR SHOWSSR @ 80. WILL CONTINUE TO MONITOR.
[2017-04-01 21:48] VITALS: BP 142/56
[2017-04-02] VITALS (7 sets, daily range): BP systolic 123–154; BP diastolic 49–81
[2017-04-02 04:53] LABS: BASOPHILS 0.1 % (0-2); EOSINOPHILS 0 % (0-7); HEMATOCRIT 32.7 % (36.0-48.0); HEMOGLOBIN 10.9 g/dL (12-16); IMMATURE GRANULOCYTES 0.4 % (0-5); LYMPHOCYTES 10.4 % (15-50); MCH 30.9 pg (26.0-34.0); MCHC 33.3 g/dL (31.0-37.0); MCV 92.6 fL (80.0-100.0); MEAN PLATELET VOLUME 9.8 fL (7.4-10.4); NEUTROPHILS 81.1 % (40-80); PLATELET COUNT 278 10x3/uL (130-400); RBC 3.53 10x6/uL (4.00-5.40); RDW 15.7 % (11.5-14.5)
[2017-04-02 05:04] LABS: WBC 17.5 10x3/uL (4.8-10.8)
[2017-04-02 05:16] LABS: ALBUMIN 2.2 g/dL (3.4-5.0); ANION GAP 8.4 mmol/L (8-16); BILIRUBIN - TOTAL 0.45 mg/dL (0.2-1.3); CALCIUM 8.7 mg/dL (8.5-10.1); CARBON DIOXIDE 30.7 mmol/L (21.0-32.0); CREATININE - SERUM 2.1 mg/dL (0.6-1.3); PHOSPHOROUS 4.2 mg/dL (2.5-4.9); PROTEIN - SERUM 6.3 g/dL (6.4-8.2)
[2017-04-02 05:35] LABS: POTASSIUM - SERUM 3.1 mmol/L (3.5-5.1)
--- NOTE | 2017-04-02 13:10 | NUR ---
RESTS IN ISOLATION ROOM. CALL LIGHT IN REACH. WILL MONITOR NEEDS.
--- NOTE | 2017-04-02 18:38 | NUR ---
WITHOUT CHANGES OR DISTRESS NOTED AT THIS TIME.
--- NOTE | 2017-04-03 03:12 | NUR ---
DOZING PERIODS OF TIME. WILL CONTINUE TO MONITOR.
[2017-04-03 04:57] LABS: BASOPHILS 0.1 % (0-2); EOSINOPHILS 1.5 % (0-7); HEMOGLOBIN 11.8 g/dL (12-16); IMMATURE GRANULOCYTES 0.6 % (0-5); LYMPHOCYTES 18.8 % (15-50); MCH 30.5 pg (26.0-34.0); MCHC 32.8 g/dL (31.0-37.0); MEAN PLATELET VOLUME 10.4 fL (7.4-10.4); MONOCYTES 7.2 % (2-11); NEUTROPHILS 71.8 % (40-80); PLATELET COUNT 244 10x3/uL (130-400); RBC 3.87 10x6/uL (4.00-5.40); RDW 15.5 % (11.5-14.5); WBC 16.4 10x3/uL (4.8-10.8)
[2017-04-03 05:10] VITALS: BP 133/66
--- NOTE | 2017-04-03 05:11 | NUR ---
BLOOD DRAWN FROM IJ THEN LINE FLUSHED. IJ DRESSING CHANGED AND PORTS CHANGED. PT TOLERATED WELL.
[2017-04-03 05:16] LABS: CALCIUM 8.7 mg/dL (8.5-10.1); PHOSPHOROUS 3.5 mg/dL (2.5-4.9)
[2017-04-03 05:19] LABS: CARBON DIOXIDE 38.9 mmol/L (21.0-32.0); POTASSIUM - SERUM 2.9 mmol/L (3.5-5.1)
--- NOTE | 2017-04-03 07:21 | NUR ---
ASSESSMENT DONE. DENIES NEEDS.
[2017-04-03 07:44] VITALS: BP 145/74
--- NOTE | 2017-04-03 10:06 | NUR ---
ISOLATION PRECAUTIONS CONT. CALL LIGHT IN REACH. WILL MONITOR.
[2017-04-03 12:51] VITALS: BP 134/68
[2017-04-03 16:26] VITALS: BP 141/76
--- NOTE | 2017-04-03 17:42 | NUR ---
WITHOUT CHANGES OR DISTRESS NOTED AT THIS TIME.
[2017-04-03 19:00] VITALS: BP 127/66
--- NOTE | 2017-04-03 19:15 | NUR ---
RECEIVED REPORT FROM DAY NURSE, PT SLEEPING, BIPAP IS ON, BED IS LOW, SRX2, CALL LIGHT IN REACH, WILL CONTINUE TO MONITOR
[2017-04-03 23:00] VITALS: BP 146/77
--- NOTE | 2017-04-04 04:34 | NUR ---
ASSESSMENT COMPLETE, SEE FLOWSHEET, PT SLEEPING WITH BIPAP ON, CALL LIGHT IN REACH, WILL MONITOR
--- NOTE | 2017-04-04 05:36 | NUR ---
WILL CONTINUE WITH PLAN OF CARE, CALL LIGHT IN REACH.
[2017-04-04 05:44] LABS: BASOPHILS 0.1 % (0-2); EOSINOPHILS 0.2 % (0-7); HEMATOCRIT 36.6 % (36.0-48.0); HEMOGLOBIN 12.1 g/dL (12-16); IMMATURE GRANULOCYTES 0.4 % (0-5); LYMPHOCYTES 14.7 % (15-50); MCH 30.8 pg (26.0-34.0); MCHC 33.1 g/dL (31.0-37.0); MCV 93.1 fL (80.0-100.0); MEAN PLATELET VOLUME 10.4 fL (7.4-10.4); MONOCYTES 6.6 % (2-11); PLATELET COUNT 232 10x3/uL (130-400); RBC 3.93 10x6/uL (4.00-5.40); RDW 15.3 % (11.5-14.5); WBC 16.4 10x3/uL (4.8-10.8)
[2017-04-04 06:05] LABS: ANION GAP 8.6 mmol/L (8-16); CALCIUM 8.9 mg/dL (8.5-10.1); CREATININE - SERUM 1.9 mg/dL (0.6-1.3); POTASSIUM - SERUM 3.6 mmol/L (3.5-5.1)
[2017-04-04 06:42] VITALS: BP 135/70
--- NOTE | 2017-04-04 07:44 | NUR ---
AM ROUNDING- RECIEVED REPORT FROM LABOR MEDIATOR NURSE QUEENIE. PT IS CURRENTLY LAYING IN BED WITH EYES OPEN RESTING. IN DROPLET ISOLATION. LEFT IJ SEEN THAT HAS NS RUNNING AT KVO (10CC). IV SEEN TO LEFT FOREARM THAT HAS DOBUTAMINE RUNNING AT 14.3CC. RODAS CATHETER SEEN. ON MONITOR SHOWING SR, HR 76. DR. ARANA ON UNIT, STATES TO CONTINUE BUMEX DRIP. CALLED PHARMACY TO SEE IF THEY COULD BRING ME A BAG. NO NEED AT CURRENT TIME. WILL CONTINUE TO MONITOR AND CONTINUE WITH PLAN OF CARE.
[2017-04-04 07:56] VITALS: BP 133/59
[2017-04-04 12:38] VITALS: BP 139/49
--- NOTE | 2017-04-04 13:44 | NUR ---
PTS FAMILY MEMBER CALLED NURSES STATION AND INFORMED ME THAT PT JUST CALLED HER (DAUGHTER) AND STATED SHE WAS HAVING TROUBLE BREATHING. WENT TO CHECK ON PT AND PTS 02 SAT IS 95% ON 02 AT 3L VIA NC. PT STATES "IM HAVING TROUBLE GETTING AIR". MIMI MASTERS, H[employer] JUSTICE IS HAVING RESP PAGED FOR PT TO BE PUT BACK ON BI-PAP. WILL CONTINUE TO MONITOR.
--- NOTE | 2017-04-04 13:49 | NUR ---
Nutrition Follow Up: Chart reviewed. Pt with difficulty breathing at times. Pt is eating 42% meal avg on a diabetic diet. I<O. +BM 03/26/17 - no BM x 9 days. Labs reviewed. Meds noted. Rec continue current diet. Will continue to provide selective menus and honor food preferences. Rec consider a bowel regimen as pt has not had BM x [address] will continue to monitor pt progress.
--- NOTE | 2017-04-04 15:23 | NUR ---
PAGED DR. MANDEL TO SEE HOW LONG HE WANTS PT ON DOBUTAMINE DRIP ( REQUESTED IN DR. GAINES NURSE MESSAGE). AWAITING CALLBACK.
--- NOTE | 2017-04-04 15:32 | NUR ---
Rehab Note- Acute Rehab Prescreen order received. Visited with the patient in her room. Holding her BiPap on at this time. The patient is currently on an IV Doputamine drip and a IV Bumex drip. The patient is interested in an acute rehab stay prior to discharge home. Will plan on admitting the patient to [facility] acute rehab when stable and ready to discharge from the acute hospital. Thank you for this referral! Kori Yang RN Clinical Liaison, [facility] Rehab/[employer]
[2017-04-04 15:42] VITALS: BP 157/69
--- NOTE | 2017-04-04 17:04 | NUR ---
Patient Name: ROSE MARIE VILLEGAS Encounter No: [id number] : 1945 Primary Insurance: MEDICARE A & B Anticipated DC Date: 04-07-2017 Planned Disposition: Inpatient Rehab External Planned Provider: [facility] DCP follow-up note: CM RECEIVED INPATIENT ORDER PRESCREEN ORDER, MET WITH PT AND FAMILY IN ROOM, DISCUSSED INPATIENT REHAB ORDER AND OPTIONS. PT HAS BEEN IN [facility] IN THE PAST AND WOULD LIKE REHAB THERE WHEN SHE IS BETTER. CM RECEIVED MESSAGE FROM KAMARI OF INPATIENT REHAB, THEY WILL COMPLETE SCREEN FOR INPATIENT REHAB WHEN PT IS MEDICALLY STABLE. Panda Curry, CASE MANAGEMENT
--- NOTE | 2017-04-04 17:20 | NUR ---
PT IS CURRENTLY LAYING IN BED ON BACK WITH EYES OPEN RESTING. FAMILY MEMBERS ARE AT BEDSIDE. NO NEED AT CURRENT TIME. WILL CONTINUE TO MONITOR AND CONTINUE WITH PLAN OF CARE.
--- NOTE | 2017-04-04 19:40 | NUR ---
RECEIVED REPORT, PT DENIES ANY NEEDS, BED IS LOW, SRX2, CALL LIGHT IN REACH, WILL CONTINUE TO MONITOR
[2017-04-04 20:21] VITALS: BP 146/63
[2017-04-05 00:28] VITALS: BP 113/61
[2017-04-05 04:13] VITALS: BP 119/59
--- NOTE | 2017-04-05 04:29 | NUR ---
ASSESSMENT COMPLETE, SEE FLOWSHEET, PT SLEEPING WITH 02 ON 3L, CALL LIGHT IN REACH, WILL CONTINUE PLAN OF CARE
[2017-04-05 06:13] LABS: BASOPHILS 0.1 % (0-2); EOSINOPHILS 0.3 % (0-7); HEMATOCRIT 35.1 % (36.0-48.0); HEMOGLOBIN 11.7 g/dL (12-16); IMMATURE GRANULOCYTES 0.3 % (0-5); LYMPHOCYTES 14.6 % (15-50); MCHC 33.3 g/dL (31.0-37.0); MCV 92.9 fL (80.0-100.0); MEAN PLATELET VOLUME 10.7 fL (7.4-10.4); MONOCYTES 5.3 % (2-11); NEUTROPHILS 79.4 % (40-80); PLATELET COUNT 236 10x3/uL (130-400); RBC 3.78 10x6/uL (4.00-5.40); RDW 15.1 % (11.5-14.5); WBC 16.9 10x3/uL (4.8-10.8)
[2017-04-05 06:17] LABS: APPEARANCE HAZY (CLEAR); BILIRUBIN NEGATIVE (NEGATIVE); COLOR YELLOW (YELLOW); GLUCOSE NEGATIVE (NEGATIVE); KETONE NEGATIVE (NEGATIVE); LEUKOCYTE ESTERASE TRACE (NEGATIVE); NITRITE NEGATIVE (NEGATIVE); PH 6.5 (5.0-6.0); PROTEIN 1+ mg/dL (NEGATIVE); UROBILINOGEN NORMAL (NORMAL)
[2017-04-05 06:23] LABS: BACTERIA FEW /hpf (NONE SEEN); EPITHELIAL CELLS 0-5 /hpf (0-5); RED CELLS - URINE 25-50 /hpf (0-5); YEAST >1+ WITH HYPHAE /hpf (NONE SEEN)
[2017-04-05 06:26] LABS: ANION GAP 7.8 mmol/L (8-16); CALCIUM 8.6 mg/dL (8.5-10.1); CARBON DIOXIDE 35.9 mmol/L (21.0-32.0); CREATININE - SERUM 2.1 mg/dL (0.6-1.3); POTASSIUM - SERUM 3.7 mmol/L (3.5-5.1)
--- NOTE | 2017-04-05 08:06 | NUR ---
ASSESSMENT COMPLETED. PT IS IN ISOLATION. TELEMERTY SHOWS SR. 02 AT 3 L/M PER NC. LEFT IJ WITH BUMEX AT 2.5 AND HR AND DOBUTAMINE AT 14.3. NS INFUSING INTO THE LEFT FA AT 10. RODAS CATH PATEN TO BEDSIDE GRAVITY BAG. CALL LIGHT IN REACH WITH SR UP. WILL MONITOR
[2017-04-05 08:07] LABS: CREATININE - URINE 27.3 mg/dL (30-125); PRO/CRE RATIO URINE 3.6 mg/g; PROTEIN - URINE 97.6 mg/dL (0.0-11.9)
[2017-04-05 08:36] VITALS: BP 155/71
--- NOTE | 2017-04-05 09:44 | NUR ---
RESTING QUIETLY SITTING IN A CHAIR TOLERATING WELL NAD NOTED
[2017-04-05 11:28] VITALS: BP 139/53
--- NOTE | 2017-04-05 14:00 | NUR ---
LYING QUIETLY WITH EYES CLOSED. NO DISTRESS NOTED. CALL LIGHT IN REACH WITH SR UP. WILL MONITOR
[2017-04-05 17:04] VITALS: BP 121/61
--- NOTE | 2017-04-05 17:14 | NUR ---
HOB UP FOR DIET. DENIES ANY NEEDS.CALL LIGHT IN REACH WITH SR UP. TELEMERTY SHOWS SR
[2017-04-05 20:32] VITALS: BP 140/61
[2017-04-06 00:36] VITALS: BP 146/62
[2017-04-06 04:30] VITALS: BP 122/54
[2017-04-06 06:36] LABS: ANION GAP 7.1 mmol/L (8-16); CALCIUM 9.1 mg/dL (8.5-10.1); CARBON DIOXIDE 35.9 mmol/L (21.0-32.0); CREATININE - SERUM 2.2 mg/dL (0.6-1.3)
[2017-04-06 07:21] LABS: BASOPHILS 0.1 % (0-2); EOSINOPHILS 0.2 % (0-7); HEMATOCRIT 33.1 % (36.0-48.0); HEMOGLOBIN 10.7 g/dL (12-16); IMMATURE GRANULOCYTES 0.3 % (0-5); LYMPHOCYTES 13.7 % (15-50); MCH 30.2 pg (26.0-34.0); MCHC 32.3 g/dL (31.0-37.0); MCV 93.5 fL (80.0-100.0); MEAN PLATELET VOLUME 10.6 fL (7.4-10.4); MONOCYTES 6.5 % (2-11); NEUTROPHILS 79.2 % (40-80); PLATELET COUNT 206 10x3/uL (130-400); RBC 3.54 10x6/uL (4.00-5.40); RDW 14.7 % (11.5-14.5); WBC 17.6 10x3/uL (4.8-10.8)
--- NOTE | 2017-04-06 07:39 | NUR ---
ASSESSMENT COMPLETED. DENIES ANY NEEDS.TELEMERTY SHOWS SR 70. O2 AT 3 L/M PER NC. LEFT IJ NO IN USE. LEFT FA SL.RODAS CATH TO BEDSIDE DRAINAGE. PT IS ONDROPLETT ISOLATION. CALL LIGHT IN REACH WITH SR UP. WILL MONITOR
[2017-04-06 08:05] VITALS: BP 123/57
[2017-04-06 12:06] VITALS: BP 126/49
--- NOTE | 2017-04-06 12:22 | NUR ---
RESTING QUIETLY RESP UNLABORED NAD NOTED
--- NOTE | 2017-04-06 14:47 | NUR ---
LYING QUIETLY. NO DISTRESS NOTED. WILL MONITOR
[2017-04-06 16:10] VITALS: BP 119/47
--- NOTE | 2017-04-06 18:07 | NUR ---
LYING QUIETLY. DENIES ANY FUTHER PAIN SINCE TAKING DILAUID. SR UP WITH CALL LIGHT IN REACH. TELEMERTY SHOWS SR
--- NOTE | 2017-04-06 19:55 | NUR ---
INITIAL ROUNDS MADE.PT SITTING UP IN BED WATCHING TV. DENIES NEEDS OR C/O AT THIS TIME. CALL LIGHT IN REACH. WILL CONT TO MONITOR. FAMILY IN ROOM.
[2017-04-06 20:00] VITALS: BP 126/56
[2017-04-07] VITALS: BP 130/67
--- NOTE | 2017-04-07 00:29 | NUR ---
NAILING MACHINE FEEDER AT BEDSIDE FOR VS. NEEDS ADDRESSED, CALL LIGHT IN REACH. WILL CONT TO MONITOR.
[2017-04-07 04:00] VITALS: BP 138/54
--- NOTE | 2017-04-07 04:30 | NUR ---
RIGHT CVL REMOVED WITH TIP INTACT. MANUAL PRESSURE HELD, NO BLEEDING NOTED. DRESSING APPLIED.
[2017-04-07 06:24] LABS: BASOPHILS 0 % (0-2); EOSINOPHILS 0.1 % (0-7); HEMATOCRIT 33.3 % (36.0-48.0); HEMOGLOBIN 10.9 g/dL (12-16); IMMATURE GRANULOCYTES 0.4 % (0-5); LYMPHOCYTES 16.9 % (15-50); MCH 30.7 pg (26.0-34.0); MCHC 32.7 g/dL (31.0-37.0); MCV 93.8 fL (80.0-100.0); MEAN PLATELET VOLUME 11.1 fL (7.4-10.4); MONOCYTES 5.4 % (2-11); NEUTROPHILS 77.2 % (40-80); PLATELET COUNT 196 10x3/uL (130-400); RBC 3.55 10x6/uL (4.00-5.40); RDW 14.9 % (11.5-14.5); WBC 14.6 10x3/uL (4.8-10.8)
[2017-04-07 06:32] LABS: ANION GAP 6.9 mmol/L (8-16); CALCIUM 9.1 mg/dL (8.5-10.1); CARBON DIOXIDE 35.2 mmol/L (21.0-32.0); POTASSIUM - SERUM 4.1 mmol/L (3.5-5.1)
--- NOTE | 2017-04-07 07:47 | NUR ---
ASSESSMENT DONE. DENIES NEEDS.
[2017-04-07 08:40] VITALS: BP 131/54
--- NOTE | 2017-04-07 09:45 | NUR ---
RESP UL ON . ISOLATION PRECATIONS CONT. CALL LIGHT IN REACH. WILL MONITOR NEEDSX.
[2017-04-07] MEDS ORDERED: NORVASC5 MG PO (11:16)
[2017-04-07] MEDS ORDERED: COREG12.5 MG PO (11:16)
[2017-04-07] MEDS ORDERED: LISINOPRIL10 MG PO (11:17)
[2017-04-07] MEDS ORDERED: MUCINEX600 MG PO (11:19)
[2017-04-07] MEDS ORDERED: SINGULAIR10 MG PO (11:19)
[2017-04-07] MEDS ORDERED: HCTZ25 MG PO (11:19)
[2017-04-07 12:31] VITALS: BP 125/56
--- NOTE | 2017-04-07 12:54 | NUR ---
Rehab has been following this patient. She meets criteria and will be accepted today if the physician agrees. Delores Posada RN CL
--- NOTE | 2017-04-07 13:00 | NUR ---
Patient Name: ROSE MARIE VILLEGAS Encounter No: [id number] : 1945 Primary Insurance: MEDICARE A & B Anticipated DC Date: 04-07-2017 Planned Disposition: Inpatient Rehab External Planned Provider: [facility] DCP follow-up note: CM RECEIVED DISCHARGE ORDER. CM SPOKE TO CHAVA OF INPATIENT REHAB, THEY PLAN TO ACCEPT PT TODAY FOR REHAB. PT NOTIFIED, IN AGREEMENT WITH DISCHARGE TO INPATIENT REHAB. IMPORTANT MESSAGE FROM MEDICARE PROVIDED AND EXPLAINED. [facility] TO CONTACT MED 2 NURSE WITH ROOM NUMBER WHEN READY TO ACCEPT PT AND NURSE REPORT. Panda Curry, CASE MANAGEMENT
[2017-04-07 16:58] VITALS: BP 125/50
--- NOTE | 2017-04-07 17:29 | NUR ---
REPORT CALLED TO REHAB
--- NOTE | 2017-04-07 18:45 | NUR ---
TO REHAB PER WC
--- NOTE | 2017-04-09 09:43 | OP ---
PATIENT NAME: ROSE MARIE VILLEGAS MEDICAL RECORD: [id number] :[birth year] LOCATION:D.M2 D.2125 ADMISSION DATE:03/20/17 SURGEON: HILTON LOWERY MD DATE OF OPERATION: 03/28/2017 PREOPERATIVE DIAGNOSES: 1. Ventilatory failure. 2. Need of additional IV access for IV medications. POSTOPERATIVE DIAGNOSES: 1. Ventilatory failure. 2. Need of additional IV access for IV medications. PROCEDURE: Insertion of right internal jugular triple lumen central venous catheter. SURGEON: Hilton Lowery M.D. PAPER COATING SUPERVISOR: None. BLOOD LOSS: Minimal. ANESTHESIA: Local. COMPLICATIONS: None. OPERATIVE COURSE: The patient was seen at her bedside. The patient was positioned in the Trendelenburg position. The right neck was sterilely prepped and draped. Local anesthetic was used to infiltrate the skin and subcutaneous tissues of the right neck. The right internal jugular vein was percutaneously accessed in an antegrade fashion on the first try. A guidewire passed easily. A small skin arie was accomplished. A vessel dilator was used to dilate a subcutaneous tract. A 16-cm triple lumen central venous catheter was inserted to the hub. It was sutured in place times 3. All lumens flushed easily and aspirated dark, nonpulsatile blood. A stat portable chest x-ray is pending. The site was sterilely dressed. TRANSINT:[id number] Voice Confirmation ID: [id number] DOCUMENT ID: [id number] HILTON LOWERY MD at 0943 CC: [id number] DICTATION DATE: 03/28/17 1641 COLLECTIONS ASSOCIATE: 03/28/17 2353 DIS IN 04/07/[address] [address]
== END 2017-04-07 18:45 | DRG 682 ==
LOC: D.ER 20:17 → D.M2 22:39 → D.ICU 22:39 → D.M2 03-22 19:19 → D.ICU 03-27 13:36 → D.M2 03-31 14:41
PROVIDERS: Emergency Medicine; Family Medicine; Internal Medicine; Internal Medicine Interventional Cardiology; Internal Medicine Nephrology; Nurse Practitioner Family; ADMIT Family Medicine
PROC: B2151ZZ Fluoroscopy of Left Heart using Low Osmolar Contrast (ICD-10-PCS; 2017-03-31)
PROC: 4A023N7 Measurement of Cardiac Sampling and Pressure, Left Heart, Percutaneous Approach (ICD-10-PCS; 2017-03-31)
PROC: B2111ZZ Fluoroscopy of Multiple Coronary Arteries using Low Osmolar Contrast (ICD-10-PCS; principal; 2017-03-31 10:00)
DX: N17.0 Acute kidney failure with tubular necrosis (principal); I21.4 Non-ST elevation (NSTEMI) myocardial infarction; I50.23 Acute on chronic systolic (congestive) heart failure; J96.01 Acute respiratory failure with hypoxia; J15.6 Pneumonia due to other Gram-negative bacteria; J13 Pneumonia due to Streptococcus pneumoniae; I13.0 Hypertensive heart and chronic kidney disease with heart failure and stage 1 through stage 4 chronic kidney disease, or unspecified chronic kidney disease; E87.1 Hypo-osmolality and hyponatremia; J45.901 Unspecified asthma with (acute) exacerbation; B37.49 Other urogenital candidiasis; I42.9 Cardiomyopathy, unspecified; E03.9 Hypothyroidism, unspecified; E87.5 Hyperkalemia; M06.9 Rheumatoid arthritis, unspecified; G62.9 Polyneuropathy, unspecified; M19.90 Unspecified osteoarthritis, unspecified site; E66.01 Morbid (severe) obesity due to excess calories; I48.91 Unspecified atrial fibrillation; G89.29 Other chronic pain; D63.1 Anemia in chronic kidney disease; N18.9 Chronic kidney disease, unspecified; E87.6 Hypokalemia; I25.10 Atherosclerotic heart disease of native coronary artery without angina pectoris

== ENCOUNTER 2017-04-07 19:59 | Inpatient (IN) | payer MEDICARE, OTHER ==
[~2017-04-07] VITALS: Ht 162.6 cm; Wt 98.4 kg
--- NOTE | 2017-04-07 19:00 | NUR ---
PT ARRIVED TO UNIT VIA WC ACCOMPANIED BY HOSPITAL STAFF AND FAMILY. PT IS ON DROPLET ISO FOR ECOLI IN SPUTUM. PT IS ON O2 AT 3L. PT HAS A LEFT FOREARM IV, PATENT. PT WAS A MOD ASSIST FROM THE WC TO BED. PT HAS A PRESSURE DRESSING TO THE RT JUGULAR FROM CENTRAL LINE REMOVAL AND A PRESSURE DRESSING TO RT GROIN FROM PREV HEART CATH. PT IS WEARING TELEMETY NOTED AT SINUS RHYTHM. PT DENIES NEEDS AT THIS TIME. BED LOW. CL IN REACH.
[~2017-04-07 19:59] MED LIST changes: +COREG12.5 MG PO; +ENBREL50 MG/ML SQ; +HCTZ25 MG PO; +LISINOPRIL10 MG PO; +MUCINEX600 MG PO; +SINGULAIR10 MG PO
[2017-04-07 20:09] VITALS: BP 131/54; BMI 37.3
--- NOTE | 2017-04-07 22:35 | NUR ---
PT HS MEDS ADMINISTERED AND ADMISSION COMPLETE. PT REQ AND REC'D PRN PAIN MEDICATION AT THIS TIME. BED LOW. CL IN REACH.
[2017-04-08 06:43] LABS: BASOPHILS 0 % (0-2); HEMATOCRIT 32.8 % (36.0-48.0); HEMOGLOBIN 10.5 g/dL (12-16); IMMATURE GRANULOCYTES 0.5 % (0-5); LYMPHOCYTES 24.3 % (15-50); MCH 30.9 pg (26.0-34.0); MEAN PLATELET VOLUME 10.8 fL (7.4-10.4); NEUTROPHILS 67.2 % (40-80); PLATELET COUNT 188 10x3/uL (130-400); RDW 14.9 % (11.5-14.5); WBC 12.6 10x3/uL (4.8-10.8)
[2017-04-08 06:44] LABS: MCV 96.5 fL (80.0-100.0)
[2017-04-08 06:52] LABS: ANION GAP 6.7 mmol/L (8-16); CALCIUM 9.2 mg/dL (8.5-10.1); CARBON DIOXIDE 34.8 mmol/L (21.0-32.0); CREATININE - SERUM 1.7 mg/dL (0.6-1.3); POTASSIUM - SERUM 4.5 mmol/L (3.5-5.1)
--- NOTE | 2017-04-08 07:00 | NUR ---
PT WAS RECEIVED AT THE BEGINNING OF THIS SHIFT IN BED AWAKE AND ORIENTED X 3. DENIES ANY NEEDS AND/OR CONCERNS AT THIS TIME. PT. IS ON ISOLATION PRECAUTIONS FOR DROPLET FROM E-COLI IN SPUTUM. LEFT FOREARM IV THAT IS SALINE LOCKED. ON TELEMETRY WITH SINUS RYTHUM. 02 PER NC GOING AT 3L/MIN. PRESSURE DRESSING TO SITE WHERE HEART CATH WAS PREFORMED AND WHERE THE CENTRAL LINE WAS TAKEN OUT. RODAS CATHETER IS PATENT AND DRAINING YELLOW URINE TO GRAVITY. VITAL SIGNS; TEMP. 98.2, PULSE 58, RESP. 16, B/P 124/68, 02SAT. 99% ON 2.5L 02 PER NC. NO SIGNS OF ANY DISCOMFORT OR DISTRESS. WILL BE MONITORING HER AND ASSISTING PRN WITH ADL'S.
--- NOTE | 2017-04-08 08:51 | NUR ---
patient admitted to [facility] from acute floor. dr. schmidt is her pcp, she has walker, shower chair, bedside commode , nebulizer O2, at home. she uses [facility] pharmacy and she is of Sabianism krystal. will continue to follow with patient.
[2017-04-08 09:11] VITALS: BP 124/68
--- NOTE | 2017-04-08 13:03 | NUR ---
DR. VARNER ROUNDED THIS MORNING AND DC'D HER NORCO. HE GAVE HER OXYCODONE (PERCOCET) IN PLACE. SHE ASKED FOR A PERCOCET AROUND 0850 AND RECEIVED ONE. SHE WENT ON TO THERAPY AND STATED THE PAIN PILL REALLY HELPED.
[2017-04-08 13:12] VITALS: Ht 162.6 cm; Wt 98.4 kg
--- NOTE | 2017-04-08 18:31 | NUR ---
PT HAS HAD AN UNEVENTFUL DAY TODAY. SHE WORKED WITH THERAPY TODAY. NO FURTHER COMPLAINTS OF ANY PAIN OR DISCOMFORT. SHE HAS HAD COMPANY THIS AFTERNOON. NO DISTRESS SEEN. CALL LIGHT REMAINS IN HER REACH.
--- NOTE | 2017-04-08 19:00 | NUR ---
ASSESSMENT PER FLOW SHEET, SALINE LOCK IN LF FA INTACT WITH NO REDNESS OR EDEMA, RODAS CATH INTACT DRAINING YELLOW URINE, PT REPORTS FLATUS, BM YESTERDAY, TELEMETRY IN PLACE, PT DENIES NEEDS AT THIS TIME
--- NOTE | 2017-04-08 20:15 | NUR ---
PT UP IN BR AT THIS TIME WITH IMCU SPECIALIST
--- NOTE | 2017-04-08 20:23 | NUR ---
RESP TO ROOM FOR TREATMENT
[2017-04-08 20:33] VITALS: BP 136/76
--- NOTE | 2017-04-08 21:16 | NUR ---
PT RESTING WITH EYES CLOSED, AROUSES TO SOFT VERBAL STIMULATION, ADM 2100 MEDS AND PAIN MED PO PER MD ORDERS, PT DENIES FURTHER NEEDS
--- NOTE | 2017-04-08 22:03 | NUR ---
PT RESTING WITH EYES CLOSED, RESP QUIET, NO DISTRESS NOTED, LEFT UNDISTURBED AT THIS TIME
--- NOTE | 2017-04-09 00:15 | NUR ---
PT RESTING WITH EYES CLOSED, RESP QUIET, NO DISTRESS NOTED, LEFT UNDISTURBED AT THIS TIME
--- NOTE | 2017-04-09 02:06 | NUR ---
PT RESTING WITH EYES CLOSED, RESP QUIET, NO DISTRESS NOTED, LEFT UNDISTURBED AT THIS TIME
--- NOTE | 2017-04-09 04:40 | NUR ---
PT VOCATIONAL INSTRUCTOR LIGHT, REQUESTED AND SERVED COFFEE AND FRESH H20, PT DENIES FURTHER NEEDS OR PAIN AT THIS TIME
[2017-04-09 05:39] LABS: BASOPHILS 0.1 % (0-2); EOSINOPHILS 5.5 % (0-7); HEMATOCRIT 29.1 % (36.0-48.0); HEMOGLOBIN 9.2 g/dL (12-16); IMMATURE GRANULOCYTES 0.7 % (0-5); LYMPHOCYTES 25.7 % (15-50); MCH 30.8 pg (26.0-34.0); MCHC 31.6 g/dL (31.0-37.0); MCV 97.3 fL (80.0-100.0); MEAN PLATELET VOLUME 10.9 fL (7.4-10.4); MONOCYTES 4.7 % (2-11); NEUTROPHILS 63.3 % (40-80); PLATELET COUNT 156 10x3/uL (130-400); RBC 2.99 10x6/uL (4.00-5.40); RDW 15.3 % (11.5-14.5)
--- NOTE | 2017-04-09 05:40 | NUR ---
PT RESTING WITH EYES CLOSED, AROUSES TO SOFT VERBAL STIMULATION, ADM 0600 MED PER MD ORDERS, SEE ADRIANNA LAFLEUR CATH EMPTIED, PT DENIES NEEDS OR PAIN AT THIS TIME
[2017-04-09 05:55] LABS: WBC 7.7 10x3/uL (4.8-10.8)
[2017-04-09 06:05] LABS: ANION GAP 8.4 mmol/L (8-16); CALCIUM 8.6 mg/dL (8.5-10.1); CARBON DIOXIDE 32.8 mmol/L (21.0-32.0); POTASSIUM - SERUM 4.2 mmol/L (3.5-5.1)
--- NOTE | 2017-04-09 07:17 | NUR ---
SHIFT REPORT TO DAY SHIFT
--- NOTE | 2017-04-09 07:59 | NUR ---
PATIENT ALERT/ORIENT X4. REMAINS IN DROPLET ISOLATION. PATIENT USING CALL LIGHT FOR NEEDS. CALL LIGHT WITHIN REACH. VOICES NO NEEDS AT THIS TIME
[2017-04-09 08:26] VITALS: BP 130/55
--- NOTE | 2017-04-09 08:37 | NUR ---
UP OOB IN BATHROOM.
--- NOTE | 2017-04-09 10:41 | NUR ---
PATIENT IN REHAB ROOM. WORKING WITH OCCUPATIONAL THERAPIST. DENIES ANY PAIN/DISC AT THIS TIME
--- NOTE | 2017-04-09 13:11 | NUR ---
PATIENT SITTING UP IN BED. OXYGEN ON AT 3L PER N/C. WATCHING T.V. VOICES NO NEEDS
--- NOTE | 2017-04-09 13:58 | NUR ---
CARE TEAM MEETING: PATIENT NEW TO UNIT AND WILL BE RA AT NEXT MEETING. TENATIVE DISCHARGE DATE IS 04/23/17. PLANS ARE FOR HER TO RETURN HOME WITH FAMILY
--- NOTE | 2017-04-09 14:00 | NUR ---
DR. ARANA INTO SEE PATIENT. NEW ORDERS RECIEVED. BLADDER TRAINING STARTED
--- NOTE | 2017-04-09 17:52 | NUR ---
BLADDER TRAINING CONTINUES. PATIENT HAS VISITORS IN ROOM. VISITORS FOLLOWING DROPLET ISOLATION PROTOCHOL.
--- NOTE | 2017-04-09 19:35 | NUR ---
PT. IN BED WITH HOB UP FOR COMFORT WATCHING TV. ASSESSMENT COMPLETED. NO VOICED NEEDS AT THIS TIME. BLADDER TRAINING WILL CONTINUE THIS SHIFT AND RODAS WILL BE D/C'D IN THE MORNING AND PT. IS AWARE. CALL LIGHT WITHIN REACH.
[2017-04-09 20:00] VITALS: BP 134/67
--- NOTE | 2017-04-09 22:53 | NUR ---
PT. IN BED WITH HOB UP FOR COMFORT AND CONTINUES TO WATCH TV. NO VOICED NEEDS AT THIS TIME AND SHE HAS HER CALL LIGHT WITHIN REACH. BLADDER TRAINING CONTINUES WITHOUT PROBLEMS.
--- NOTE | 2017-04-10 02:01 | NUR ---
PT. IN BED WITH HOB UP FOR COMFORT. EYES CLOSED AND RESP. DEEP AND EVEN. RODAS TO BSD AND BLADDER TRAINING CONTINUES. CALL LIGHT WITHIN REACH.
--- NOTE | 2017-04-10 07:20 | NUR ---
PT IS RESTING IN BED WITH EYES CLOSED. AWOKE EASILY TO VERBAL STIMULI. ALERT AND ORIENTED X 4. PT DENIES NEEDS AT THIS TIME.02 IS ON @ 3LPM PER NC. NO SOB NOTED. TELEMETRY UNIT IS INTACT. SR'S ARE UP X 2 IN BED. CALL LIGHT AND BEDSIDE TABLE ARE WITHIN EASY REACH.
[2017-04-10 08:11] VITALS: BP 121/62
--- NOTE | 2017-04-10 09:57 | NUR ---
PT IS PARTICIPATING IN THERAPY AT THIS TIME.
--- NOTE | 2017-04-10 10:52 | NUR ---
Nutrition Follow Up: Chart reviewed. Pt is eating 98% meal avg on a renal diet. I>O. Wt stable. Labs reviewed - BUN, Cr elevated. Meds noted including Folic Acid, Vit D, Miralax. Pt with excellent po intake. Rec continue current diet. RD will continue to monitor pt progress.
--- NOTE | 2017-04-10 10:53 | RHP ---
PATIENT: ROSE MARIE VILLEGAS MEDICAL RECORD: [id number] ACCOUNT: [id number] LOCATION:[id number] : 43 ADMISSION DATE: 04/07/17 REHABILITATION HISTORY AND PHYSICAL EXAMINATION POST ADMISSION PHYSICIAN EXAMINATION Post-admission Physical Examination and History and Physical DATE OF ADMISSION: 04/07/2017 ADMITTING DIAGNOSIS: Congestive heart failure myopathy. HISTORY OF PRESENT ILLNESS: The patient is a 72-year-old female patient admitted with CHF myopathy, [id number] systolic CHF, acute renal failure, and bilateral pneumonia. She was brought in the hospital by ambulance for evaluation of shortness of breath. She had been in her usual state of health. She had been treated for recent strep throat infection, was given Augmentin and she was taking medications as prescribed. She says that she had had some increasing difficulty with urine output and facial swelling over the previous 24 hours. She was noted to have increasing tremors by her daughter, who is a hemodialysis nurse and had increased twitching of her bilateral upper extremities. She was found to be in acute renal failure with hyperkalemia. Her potassium was 7. She was rechecked and found to be 6.8. She did have some EKG changes with evidence of widening of the QRS complexes in the anterior precordial leads. She also had an incomplete R-wave progression as evidenced of a very prominent wavy baseline on leads 1-3 and she was also on AFib. She was admitted to the ICU with nephrology and cardiology consultation. Previously, she was moderate independent for ADLs and mobility with a rolling walker. She wears an AFO on her ankle for foot drop. Currently, she has marked max assist for ADLs and mobility. She is currently being monitored for cardiac arrhythmia. She has a Sandoval for accurate ins and outs. Her creatinine has decreased from 4.5 upon admission to 1.8. She is on a titrating dose of Solu-Medrol. Continues O2 sats in 92% or above at 2-3 liters. Her blood sugars have been evaluated, she is on fingerstick blood sugar with low resistant sliding scale. She lives with her daughter who works as a nurse and she will be able to return home, hopefully at her prior level of functioning. COMORBIDITIES: In this patient include hypothyroidism, hypertension, unspecified atrial fib, pneumonia, respiratory failure with hypoxia, acute kidney failure, pulmonary edema, morbid obesity, anemia, electrolyte abnormalities, positive RA titer in the past, chronic pain, weakness, fatigue, tremors, neuropathy, decreased urine output, arthritis and elevated blood sugars. PAST MEDICAL HISTORY: Significant for asthma, rheumatoid arthritis, hypertension, hypothyroidism, morbid obesity, neuropathy and chronic pain. PAST SURGICAL HISTORY: Includes cholecystectomy. She has also had a heart cath in the past with stent placement. She has had a colostomy for perforated colon and reversal of this, hip surgery, knee surgery and also a history of foot drop. ALLERGIES: SULFA AND MORPHINE. CURRENT MEDICATIONS: Include methotrexate, she takes on Friday. She is on Percocet 10/325 as needed for pain, Zestril 10 mg daily, Synthroid 50 mcg daily, HISTORY AND PHYSICAL [id number] ROSE MARIE VILLEGAS hydrochlorothiazide 12.5 mg daily, folic acid 1 mg daily, vitamin D 1000 units daily, carvedilol 12.5 mg b.i.d. with meals, amlodipine 5 mg daily. She is on tramadol as needed for breakthrough pain, Zanaflex 4 mg q.h.s., Pravachol 20 mg q.h.s., Singulair 10 mg q.h.s., Mucinex 600 mg b.i.d., Neurontin 100 mg t.i.d. She is on Voltaren gel as needed. She is on Ventolin updrafts as needed and polyethylene glycol 17 grams in 8 ounces of water daily. HABITS: No current alcohol or tobacco use. FAMILY HISTORY: Noncontributory. SOCIAL HISTORY: The patient hopes to return back home with her daughter, who is a hemodialysis nurse and lives there. REVIEW OF SYSTEMS: GENERAL: Does complain of weakness. HEENT: Denies cold, cough, or congestion. CARDIOVASCULAR: Denies chest pain. PHYSICAL EXAMINATION: VITAL SIGNS: Stable, afebrile. GENERAL: A somewhat obese female in no acute distress, alert upon exam. HEENT: Normocephalic, atraumatic. Mucosa moist. NECK: Supple. No lymphadenopathy. LUNGS: Decreased breath sounds in both bases. CARDIOVASCULAR: Regular rate and rhythm. ABDOMEN: Benign. EXTREMITIES: No clubbing, cyanosis or edema. NEUROLOGIC: Seems intact. Her white count is 12.6, H&H of 10 and 32 and platelet count was noted to be 188. LABORATORY DATA: Sodium is 139, potassium 4.5, BUN and creatinine of 86 and 1.7, and blood sugars noted to be 87. ASSESSMENT: This is a 72-year-old female patient admitted to rehab with a working diagnosis of congestive heart failure myopathy. The patient has potential to make improvement. We instituted the following multidisciplinary therapies including to, but not limited to physical, occupational, respiratory, speech, nutritional services, prosthetics and orthotics. Given her complex condition and risk for more complications, rehabilitation services cannot be provided at a low level of care such as a shelter facility. PLAN: 1. Admit to [facility] rehab for intensive inpatient therapy to include the following disciplines: A. Physical therapy to improve gait, all transfer skills and bed mobility to a modified independent level. B. Occupational therapy to improve activities of daily living to a modified independent level. C. Case management to assist with discharge planning and placement options. D. Nutrition to assist with nutritional needs. E. Rehabilitation nursing to assist in monitoring the patient's underlying medical conditions and to assist with any type of bowel or bladder management. 2. The patient's current medication and medical care will be continued. 3. The patient will be placed on standard fall precautions. HISTORY AND PHYSICAL [id number] ROSE MARIE VILLEGAS 4. The patient's estimated length of stay is approximately 7-10 days. 5. We will do a follow up chest x-ray to assess any pulmonary edema or pneumonia left. 6. Discuss this patient during care team staff meeting this week. TRANSINT:[id number] Voice Confirmation ID: [id number] DOCUMENT ID: [id number] ROSETTA VARNER MD at 1053 CC: [id number] DICTATION DATE: 04/08/17 0800 CONVERTING SUPERVISOR: 04/08/17 1306 ADM IN [facility] [address] [place] [address]
--- NOTE | 2017-04-10 14:22 | NUR ---
PT RESTING IN BED AFTER THERAPY. NO NEEDS VOICED.
--- NOTE | 2017-04-10 18:00 | NUR ---
RESTING QUIETLY IN BED.
--- NOTE | 2017-04-10 20:00 | NUR ---
PT. IN BED WITH HOB UP FOR COMFORT WATCHING TV. ASSESSMENT COMPLETED. O2 PER N/C AT 3LMIN. NO VOICED NEEDS AT THIS TIME. CALL LIGHT WITHIN REACH.
[2017-04-10 21:00] VITALS: BP 130/56
--- NOTE | 2017-04-10 23:49 | NUR ---
PT. IN BED WTIH HOB UP FOR COMFORT WITH EYES CLOSED AND RESP. DEEP AND EVEN. O2 PER N/C AT 3L/MIN AND HER CALL LIGHT IS WITHIN REACH.
--- NOTE | 2017-04-11 03:20 | NUR ---
PT. IN BED WITH HOB UP FOR COMFORT WITH EYES CLOSED AND RESP. DEEP AND EVEN. O2 ON VIA N/C AT 3L/MIN. CALL LIGHT WITHIN REACH.
[2017-04-11 06:51] LABS: BASOPHILS 0 % (0-2); EOSINOPHILS 5.6 % (0-7); HEMATOCRIT 26.6 % (36.0-48.0); HEMOGLOBIN 8.6 g/dL (12-16); IMMATURE GRANULOCYTES 0.6 % (0-5); MCH 30.9 pg (26.0-34.0); MCHC 32.3 g/dL (31.0-37.0); MCV 95.7 fL (80.0-100.0); MEAN PLATELET VOLUME 10.5 fL (7.4-10.4); MONOCYTES 6.7 % (2-11); NEUTROPHILS 55.1 % (40-80); PLATELET COUNT 134 10x3/uL (130-400); RBC 2.78 10x6/uL (4.00-5.40)
[2017-04-11 06:52] LABS: WBC 5.2 10x3/uL (4.8-10.8)
--- NOTE | 2017-04-11 07:00 | NUR ---
PT WAS RECEIVED IN WHEELCHAIR IN ROOM AT THE BEGINNING OF THIS SHIFT. SHE WAS ALERT AND ORIENTED X 3. PT IS CURRENTLY IN DROPLET ISOLATION FOR E-COLI IN RESP. SYSTEM. 02 PER NC GOING AT 3L/MIN. PT DOES GET OOB AND INTO WHEELCHAIR AND TO THE BATHROOM ON HER OWN. VITAL SIGNS; TEMP. 99.1, PULSE 62, RESP. 14, B/P 121/40, 02SAT. 90%. WILL BE MONITORING HER AND ASSISTING PRN WITH ADL'S. PT HAS NO VOICED COMPLAINTS OR CONCERNS AT THIS TIME. STABLE CONDITION OBSERVED.
[2017-04-11 07:10] LABS: CALCIUM 8.6 mg/dL (8.5-10.1); CARBON DIOXIDE 31.8 mmol/L (21.0-32.0); CREATININE - SERUM 1.5 mg/dL (0.6-1.3); POTASSIUM - SERUM 4.8 mmol/L (3.5-5.1)
[2017-04-11 09:39] VITALS: BP 121/40
--- NOTE | 2017-04-11 15:00 | NUR ---
PT ASKED FOR PAIN MEDICATION AROUND 904 AND RECEIVED A PERCOCET 10MG AT THAT TIME. SHE WAS TAKEN TO THERAPY AND WORKED REALLY WELL. SHE IS VISITING WITH COMPANY IN HER ROOM AT THIS TIME. CALL LIGHT IN HER REACH.
--- NOTE | 2017-04-11 18:14 | NUR ---
PT IS RESTING NOW IN BED. HOB ELEVATED TO 35% ANGLE. CALL LIGHT IS IN REACH. NO VOICED COMPLAINTS TO STAFF. WILL BE MONITORING TILL SHIFT ENDS.
--- NOTE | 2017-04-11 19:20 | NUR ---
PATIENT IN BED, AWAKE. DENIES NEEDS. MULTIPLE FAMILY MEMBERS PRESENT AT BEDSIDE.
[2017-04-11 21:55] VITALS: BP 133/76
--- NOTE | 2017-04-11 21:55 | NUR ---
ASSESSMENT AND HS MED COMPLETE. GAVE PATIENT NORCO 10325 X1 TAB PO FOR PAIN LEVEL OF 9/10 IN MULTIPLE JOINTS R/T ARTHRITIS.
--- NOTE | 2017-04-12 00:35 | NUR ---
IN BED, JUST BEGINNING TO STIR WHILE I WAS OBSERVING PATIENT.
--- NOTE | 2017-04-12 02:30 | NUR ---
RESTING IN BED, EYES CLOSED. APPEARS COMFORTABLE.
--- NOTE | 2017-04-12 04:05 | NUR ---
AWAKE. DENIES NEEDS. TELEMETRY SHOWS. SB 53 WITH ONGOING INVERTED T-WAVE.
--- NOTE | 2017-04-12 06:15 | NUR ---
IN BED. TOOK SCHEDULED PO MEDS. GAVE HER FRESH WATER AND A CUP OF COFFEE.
[2017-04-12 08:00] VITALS: BP 123/64
--- NOTE | 2017-04-12 08:00 | NUR ---
PATIENT REAMINS IN DROPLET ISOLATION. PATIENT IS ALERT/ORIENT X4. HAS SIGNED A BED CHAIR ALARM WAVIOR. STEADY GAIT IN ROOM.
--- NOTE | 2017-04-12 10:40 | NUR ---
PATIENT IN REHAB ROOM WORKING WITH OCCUPATIONAL THERAPIST. OXYGEN LEVEL AT 97%. OXYGEN ON AT 1.5 LITTERS. OXYGEN LEVEL MAINTAINED WHEN PATIENT UP WALKING IN REHAB ROOM.
--- NOTE | 2017-04-12 12:43 | NUR ---
PATIENT HAS VISITORS IN ROOM. DROPLET ISOLATION MEASURES FOLLOWED.
--- NOTE | 2017-04-12 15:29 | NUR ---
PATIENT WAITING FOR DAUGHTER TO COME IN TO TAKE A SHOWER.
--- NOTE | 2017-04-12 16:33 | NUR ---
DAUGHTERS HERE. HELPED MOTHER WITH SHOWER. LINENS ON BED CHANGED WHILE PATIENT IN SHOWER BY THIS NURSE. TELEMTRY REATTACHED AFTER SHOWER.
--- NOTE | 2017-04-12 18:02 | NUR ---
PATIENT REMAINS ON 1.5L WITH NO SHORTNESS OF BREATH, RESPITORY DISTRESS.
--- NOTE | 2017-04-12 19:00 | NUR ---
PATIENT IN BED, AWAKE. O2 PER N/C @ 1.5L FLOW. DENIES CURRENT NEEDS.
--- NOTE | 2017-04-12 21:20 | NUR ---
IN BED, AWAKE. DENIES CURRENT NEEDS.
[2017-04-12 22:15] VITALS: BP 131/57
--- NOTE | 2017-04-12 22:15 | NUR ---
ASSESSMENT AND HS MEDS COMPLETE. GAVE PATIENT PERCOCET 10/325 X1 TAB PO FOR PAIN LEVEL OF 6/10 IN MULTIPLE JOINTS DUE TO ARTHRITIS. ALSO PROVIDED PATIENT WITH A CUP OF COFFEE AND FRESH ICE WATER. DENIES FURTHER NEEDS.
--- NOTE | 2017-04-13 00:15 | NUR ---
IN BED, EYES CLOSED. RESPIRING QUIETLY.
--- NOTE | 2017-04-13 02:30 | NUR ---
IN BED, RESTING QUIETLY, EYES CLOSED.
--- NOTE | 2017-04-13 03:30 | NUR ---
TEST ENGINE MECHANIC CALLED TO REPORT PATIENT'S HR IS NOW SB 44 WITN AN OCCASIONAL PAC. PATIENT IS AWAKE, ALERT AND SAYS SHE FEELS FINE, IS NOT LIGHT HEADED. NO DISTRESS AT THIS TIME.
--- NOTE | 2017-04-13 04:40 | NUR ---
REMAINS IN BED, EYES CLOSED. RESPIRING QUIETLY.
[2017-04-13 08:00] VITALS: BP 140/77
--- NOTE | 2017-04-13 08:14 | NUR ---
SITTING UP EATING BREAKFAST. CALL LIGHT IN REACH
--- NOTE | 2017-04-13 09:54 | NUR ---
PATIENT CONTINUES IN DROPLET ISOLATION FOR E COLI SUTUM. ALERT/ORIENT X4. PATIENT HAS A STEADY GAIT. HAS SIGNED BED/CHAIR ALARM WAVIOR. PATIENT STATES NO NEEDS AT THIS TIME
--- NOTE | 2017-04-13 14:42 | NUR ---
PATIENT HAS VISITIORS IN ROOM. DROPLET ISOLATION MAINTAINTED WITH VISITORS
--- NOTE | 2017-04-13 15:15 | NUR ---
PRN PERCOCET GIVEN FOR SHOULDER AND HIP PAIN. PER PATIENT REQUEST.
--- NOTE | 2017-04-13 16:00 | NUR ---
PATIENT STATES RELIEF FROM PRN PERCOCET
--- NOTE | 2017-04-13 18:55 | NUR ---
IN BED, DENIES NEEDS. DELIVERED HER MENU TO COMPLETE.
--- NOTE | 2017-04-13 19:50 | NUR ---
REMAINS IN BED, DENIES NEEDS.
--- NOTE | 2017-04-13 22:00 | NUR ---
AWAKE. WATCHING TV. DENIES NEEDS.
[2017-04-13 22:55] VITALS: BP 139/65
--- NOTE | 2017-04-13 23:05 | NUR ---
ASSESSMENT AND HS MEDS COMPLETE. GAVE PATIENT PERCOCET 10/325 X1 TAB PO FOR PAIN LEVEL OF 7/10 IN MULTIPLE JOINTS.
--- NOTE | 2017-04-14 00:10 | NUR ---
IN BED, AWAKE AGAIN. DENIES NEEDS.
--- NOTE | 2017-04-14 02:00 | NUR ---
IN BED, EYES CLOSED. RESTING QUIETLY.
--- NOTE | 2017-04-14 04:00 | NUR ---
RESTING QUIETLY IN BED, EYES CLOSED. RESPIRATIONS UNLABORED.
--- NOTE | 2017-04-14 06:30 | NUR ---
GAVE PATIENT SCHEDULED SYNTHROID PO, AND A CUP OF COFFEE. DENIES CURRENT NEEDS.
[2017-04-14 06:42] LABS: BASOPHILS 0.2 % (0-2); EOSINOPHILS 7.7 % (0-7); HEMATOCRIT 27.4 % (36.0-48.0); HEMOGLOBIN 8.6 g/dL (12-16); IMMATURE GRANULOCYTES 0.2 % (0-5); LYMPHOCYTES 39.6 % (15-50); MCH 30.6 pg (26.0-34.0); MCHC 31.4 g/dL (31.0-37.0); MCV 97.5 fL (80.0-100.0); MONOCYTES 9.6 % (2-11); NEUTROPHILS 42.7 % (40-80); PLATELET COUNT 134 10x3/uL (130-400); RBC 2.81 10x6/uL (4.00-5.40); WBC 4.2 10x3/uL (4.8-10.8)
[2017-04-14 06:59] LABS: ANION GAP 6.4 mmol/L (8-16); CALCIUM 8.7 mg/dL (8.5-10.1); CARBON DIOXIDE 32.2 mmol/L (21.0-32.0); CREATININE - SERUM 1.3 mg/dL (0.6-1.3); POTASSIUM - SERUM 4.6 mmol/L (3.5-5.1)
--- NOTE | 2017-04-14 07:35 | NUR ---
PT UP IN WHEELCHAIR. FAMILY ASSISTING WITH NEEDS. WCTM.
[2017-04-14 08:34] VITALS: BP 155/60
--- NOTE | 2017-04-14 09:00 | NUR ---
PT MEDS ADMINISTERED. PT DENIES NEEDS. APPLIES OWN VOLATREN GEL. PT UP IN AT THIS TIME. TM.
--- NOTE | 2017-04-14 19:25 | NUR ---
PT. IN BED WITH EYES CLOSED AND RESP. EVEN WITH O2 VIA N/C IN PLACE. PT. AWAKENS EASILY FOR ASSESSMENT. PT. UNDERSTANDS WHY SHE IS ON DROPLET ISOLATION. PT. REQUESTING PAIN MEDICATION WITH HER BEDTIME MEDS SO THAT IT MIGHT HELP HER TO REST BETTER. CALL LIGHT WITHIN REACH.
[2017-04-14 22:07] VITALS: BP 126/74
--- NOTE | 2017-04-14 23:07 | NUR ---
PT. IN BED WITH HOB UP FOR COMFORT WITH EYES CLOSED AND RESP. EVEN. O2 ON VIA N/C AT 2L/MIN. CALL LIGHT WITHIN REACH.
--- NOTE | 2017-04-15 03:03 | NUR ---
PT. IN BED WITH HOB UP FOR COMFORT AND HER EYES ARE CLOSED AND RESP. DEEP AND EVEN. O2 ON AT 2L/MIN VIA N/C WITIHOUT PROBLEMS.
--- NOTE | 2017-04-15 07:30 | NUR ---
PT IS SITTING IN HER WC IN HER ROOM. ALERT AND ORIENTED X 4. SHE DENIES ACUTE PAIN OR DISCOMFORT AT THIS TIME. O2 IS ON @ 2LPM PER NC. DROPLETT ISOLATION PRECAUTIONS OBSERVED. NO SOB NOTED. CALL LIGHT AND BEDSIDE TABLE ARE WITHIN EASY REACH.
--- NOTE | 2017-04-15 08:52 | NUR ---
PT IS SITTING IN HER ROOM AWAITING THERAPY. NO NEEDS VOICED.
[2017-04-15 09:22] VITALS: BP 150/57
--- NOTE | 2017-04-15 11:00 | NUR ---
PT IS PARTICIPATING IN THERAPY AT THIS TIME.
--- NOTE | 2017-04-15 13:35 | NUR ---
PT IS IN THE GYM WITH PT. NO NEEDS VOICED.
--- NOTE | 2017-04-15 17:24 | NUR ---
PT IS FEEDING SELF SUPPER SITTING ON THE SIDE OF HER BED. NO DISTRESS NOTED.
--- NOTE | 2017-04-15 18:00 | NUR ---
SITTING UP IN BED.DENIES NEEDS.
--- NOTE | 2017-04-15 19:20 | NUR ---
PT. IN BED WITH HOB UP FOR COMFORT WITH EYES CLOSED AND RESP. EVEN. PT. AWAKENS EASILY FOR ASSESSMENT. NO NEW VOICED PROBLEMS. PT. DOES WANT HER PAIN MEDICATION WITH HER NIGHT TIME MEDS. PT. KNOWLEDGEABLE OF BEING ON DROPLET ISOLATION FOR HER RESP. INFECTION. CALL LIGHT WITHIN REACH.
[2017-04-15 21:02] VITALS: BP 134/58
--- NOTE | 2017-04-15 23:04 | NUR ---
PT. IN BED WITH HOB UP FOR COMFORT WITH EYES CLOSED AND RESP. DEEP AND EVEN. O2 ON AT 2L/MIN. VIA N/C. CALL LIGHT WITHIN REACH.
[2017-04-16 06:22] LABS: BASOPHILS 0.6 % (0-2); EOSINOPHILS 6.8 % (0-7); HEMATOCRIT 28.4 % (36.0-48.0); HEMOGLOBIN 8.9 g/dL (12-16); IMMATURE GRANULOCYTES 0.3 % (0-5); LYMPHOCYTES 42.8 % (15-50); MCH 30.5 pg (26.0-34.0); MCHC 31.3 g/dL (31.0-37.0); MCV 97.3 fL (80.0-100.0); MEAN PLATELET VOLUME 9.1 fL (7.4-10.4); MONOCYTES 11.4 % (2-11); NEUTROPHILS 38.1 % (40-80); PLATELET COUNT 158 10x3/uL (130-400); RBC 2.92 10x6/uL (4.00-5.40); RDW 15.1 % (11.5-14.5); WBC 3.3 10x3/uL (4.8-10.8)
--- NOTE | 2017-04-16 06:35 | NUR ---
PT. IN BED WITH HOB UP FOR COMFORT AND EASILY AWAKENED FOR HER MORNING MEDICATIONS. NO VOICED NEEDS AND CALL LIGHT WITHIN REACH.
[2017-04-16 06:49] LABS: ANION GAP 8.5 mmol/L (8-16); CALCIUM 8.9 mg/dL (8.5-10.1); CARBON DIOXIDE 30.8 mmol/L (21.0-32.0); CREATININE - SERUM 1.2 mg/dL (0.6-1.3); POTASSIUM - SERUM 4.3 mmol/L (3.5-5.1)
--- NOTE | 2017-04-16 07:21 | NUR ---
PT IS RESTING IN BED WITH EYES OPEN. ALERT AND ORIENTED X 4. DENIES ACUTE DISCOMFORT AT THIS TIME. NO SOB NOTED. O2 IS ON @ 2LPM PER NC. DROPLETT ISOLATION PRECAUTIONS OBSERVED. SR'S ARE UP X 2 IN BED. CALL LIGHT AND BEDSIDE TABLE ARE WITHIN EASY REACH.
[2017-04-16 09:03] VITALS: BP 151/46
--- NOTE | 2017-04-16 10:12 | NUR ---
PT IS PARTICIPATING IN THERAPY AT THIS TIME.
--- NOTE | 2017-04-16 11:35 | NUR ---
PT IS RESTING IN WC IN HER ROOM AWAITING LUNCH. NO NEEDS VOICED.
--- NOTE | 2017-04-16 13:11 | NUR ---
Nutrition Follow Up: Chart reviewed. Pt is eating 91% meal avg on a renal ADA diet. +BM 04/15/17. No new wt to assess. Meds and labs reviewed. Pt with excellent po intake. Rec continue current diet. RD following.
--- NOTE | 2017-04-16 14:11 | NUR ---
PT IS RESTING IN BED AFTER THERAPY. NO DISTRESS NOTED.
--- NOTE | 2017-04-16 16:40 | NUR ---
CARE TEAM MEETING: PATIENT DISCHARGING HOME Friday04/18/17 WITH FAMILY. WILL CONTINUE TO FOLLOW WITH PATIENT AND WILL ASSIST WITH DISCHARGE NEEDES.
--- NOTE | 2017-04-16 17:39 | NUR ---
PT IS LAYING DOWN IN BED AFTER SUPPER. NO NEEDS VOICED. ASSISTED TO USE THE BATHROOM PRN.
--- NOTE | 2017-04-16 18:00 | NUR ---
DENIES NEEDS.CL IN REACH.
--- NOTE | 2017-04-16 19:15 | NUR ---
PT. IN BED WITH HOB UP FOR COMFORT AND IS WATCHING TV. PT. REQUESTING PAIN MED WITH HER NIGHT TIME MEDS FOR HER MAJOR JOINT PAINS. ASSESSMENT COMPLETED. O2 ON VIA N/C AT 2L/MIN. CALL LIGHT WITHIN REACH.
[2017-04-16 22:58] VITALS: BP 136/67
--- NOTE | 2017-04-16 23:11 | NUR ---
PT. IN BED WITH HOB UP FOR COMFORT WITH EYES CLOSED AND RESP. EVEN. O2 ON AT 2L/MIN WITHOUT AND S/S SOB. CALL LIGHT WITHIN REACH.
--- NOTE | 2017-04-17 03:08 | NUR ---
PT. IN BED WITH HOB UP FOR COMFORT WITH EYES CLOSED AND RESP. EVEN. O2 VIA N/C ON AT 2/L MIN WITHOUT ANY S/S SOB. CALL LIGHT WITHIN REACH.
--- NOTE | 2017-04-17 06:23 | NUR ---
PT. AWAKE AND DENIES ANY NEEDS. HAS TAKEN HERSELF TO THE BATHROOM THROUGHOUT THE NIGHT WITHOUT ANY PROBLEMS. CALL LIGHT WITHIN REACH.
--- NOTE | 2017-04-17 08:00 | NUR ---
PT UP EATING BREAKFAST, DENIES NEEDS. BED LOW. CL IN REACH.
[2017-04-17 09:40] VITALS: BP 173/71
--- NOTE | 2017-04-17 10:26 | NUR ---
PT IN THERAPY, TOLERATING WELL.
--- NOTE | 2017-04-17 18:23 | NUR ---
PT RESTING IN BED, DENIES NEEDS. BED LOW. CL IN REACH.
--- NOTE | 2017-04-17 18:50 | NUR ---
IN BED, DENIES NEEDS.
[2017-04-17 22:11] VITALS: BP 136/64
--- NOTE | 2017-04-18 02:20 | NUR ---
IN BED, EYES CLOSED. NO DISTRESS NOTED.
--- NOTE | 2017-04-18 04:20 | NUR ---
PATIENT AWAKE. DENIES NEEDS.
[2017-04-18 07:19] LABS: BASOPHILS 0.6 % (0-2); EOSINOPHILS 5.3 % (0-7); HEMATOCRIT 29.9 % (36.0-48.0); HEMOGLOBIN 9.5 g/dL (12-16); IMMATURE GRANULOCYTES 0.3 % (0-5); LYMPHOCYTES 47.2 % (15-50); MCH 30.6 pg (26.0-34.0); MCHC 31.8 g/dL (31.0-37.0); MCV 96.5 fL (80.0-100.0); MEAN PLATELET VOLUME 9.3 fL (7.4-10.4); MONOCYTES 14.7 % (2-11); NEUTROPHILS 31.9 % (40-80); PLATELET COUNT 188 10x3/uL (130-400); RDW 14.9 % (11.5-14.5); WBC 3.6 10x3/uL (4.8-10.8)
[2017-04-18 07:51] LABS: ANION GAP 9.8 mmol/L (8-16); CALCIUM 9.5 mg/dL (8.5-10.1); CARBON DIOXIDE 31.5 mmol/L (21.0-32.0); CREATININE - SERUM 1.1 mg/dL (0.6-1.3); POTASSIUM - SERUM 4.3 mmol/L (3.5-5.1)
[2017-04-18 08:57] VITALS: BP 112/85
--- NOTE | 2017-04-18 09:01 | NUR ---
PATIENT DISCHARGING HOME WITH FAMILY. [facility] WILL FOLLOW WITH PATIENT AT HOME. DR. ESPINOSA 04/21/17 @ 4:15. PATIENT CHOICE FORM FOR HOME HEALTH AND [facility] FORM SIGNED, EXPLAINED AND FILED IN CHART. ORDERS HAVE BEEN FAXED WITH CONFORMATION RECIEVED. SCRIPT GIVEN TO PATIENT FOR PORTABLE O2. PATIENT EDUCATED ON DEEP BREATHING EXERCISES PATIENT VOICED UNDERSTANDING.
--- NOTE | 2017-04-18 09:02 | NUR ---
PT AM MEDS ADMINISTERED. PT DENIES NEEDS. WCTM.
--- NOTE | 2017-04-18 13:06 | NUR ---
PT DISCHARGED HOME WITH FAMILY VIA WHEELCHAIR. HOME HEALTH TO FOLLOW UP. PT MEDS CALLED IN TO [facility].
== END 2017-04-18 13:08 | disposition home health service (06) | DRG 91 ==
LOC: D.REHAB 19:59
PROVIDERS: ADMIT Emergency Medicine
DX: G72.89 Other specified myopathies (principal); I50.23 Acute on chronic systolic (congestive) heart failure; J18.9 Pneumonia, unspecified organism; J96.01 Acute respiratory failure with hypoxia; J81.1 Chronic pulmonary edema; E87.1 Hypo-osmolality and hyponatremia; N17.9 Acute kidney failure, unspecified; I13.0 Hypertensive heart and chronic kidney disease with heart failure and stage 1 through stage 4 chronic kidney disease, or unspecified chronic kidney disease; E03.9 Hypothyroidism, unspecified; I48.91 Unspecified atrial fibrillation; E66.01 Morbid (severe) obesity due to excess calories; D64.9 Anemia, unspecified; E87.8 Other disorders of electrolyte and fluid balance, not elsewhere classified; R53.1 Weakness; R53.83 Other fatigue; G62.9 Polyneuropathy, unspecified; G89.29 Other chronic pain; R25.1 Tremor, unspecified; M19.90 Unspecified osteoarthritis, unspecified site; E87.5 Hyperkalemia; N18.9 Chronic kidney disease, unspecified

== ENCOUNTER 2017-10-19 15:34 | Inpatient (IN) | payer MEDICARE, OTHER ==
[~2017-10-19] VITALS: Ht 162.6 cm; Wt 88.0 kg
[2017-10-19 16:25] LABS: BASOPHILS 0.1 % (0-2); EOSINOPHILS 0.3 % (0-7); HEMATOCRIT 46.2 % (36.0-48.0); HEMOGLOBIN 15.3 g/dL (12-16); IMMATURE GRANULOCYTES 0.3 % (0-5); LYMPHOCYTES 14.8 % (15-50); MCH 30.7 pg (26.0-34.0); MCHC 33.1 g/dL (31.0-37.0); MCV 92.8 fL (80.0-100.0); MEAN PLATELET VOLUME 9.1 fL (7.4-10.4); MONOCYTES 10.5 % (2-11); RBC 4.98 10x6/uL (4.00-5.40); RDW 13.8 % (11.5-14.5); WBC 14.9 10x3/uL (4.8-10.8)
[2017-10-19 16:28] LABS: INR 1.41 (0.85-1.17); PROTIME 17.1 SECONDS (11.6-15.0)
[2017-10-19 16:31] LABS: UDS - AMPHET NEGATIVE QUAL (NEGATIVE); UDS - BARB NEGATIVE QUAL (NEGATIVE); UDS - BENZO NEGATIVE QUAL (NEGATIVE); UDS - COCAINE NEGATIVE QUAL (NEGATIVE); UDS - OPIATE POSITIVE QUAL (NEGATIVE); UDS - PCP NEGATIVE QUAL (NEGATIVE); UDS - THC NEGATIVE QUAL (NEGATIVE)
[2017-10-19 16:37] LABS: APPEARANCE TURBID (CLEAR); BILIRUBIN NEGATIVE (NEGATIVE); COLOR YELLOW (YELLOW); GLUCOSE NEGATIVE (NEGATIVE); KETONE SMALL mg/dL (NEGATIVE); NITRITE NEGATIVE (NEGATIVE); PROTEIN 3+ mg/dL (NEGATIVE); UROBILINOGEN NORMAL (NORMAL)
[2017-10-19 16:37] LABS: PLATELET COUNT 316 10x3/uL (130-400)
[2017-10-19 16:43] LABS: BACTERIA MANY /hpf (NONE SEEN); EPITHELIAL CELLS 0-5 /hpf (0-5); GRANULAR CAST RARE /lpf (NONE SEEN); HYALINE CAST OCC /lpf (NONE SEEN); WHITE CELLS - URINE >50 /hpf (0-5)
[2017-10-19 16:45] LABS: ANION GAP 11.6 mmol/L (8-16); BILIRUBIN - TOTAL 0.53 mg/dL (0.2-1.3); CALCIUM 9.9 mg/dL (8.5-10.1); CARBON DIOXIDE 31.1 mmol/L (21.0-32.0); CREATININE - SERUM 0.9 mg/dL (0.6-1.3); MAGNESIUM - SERUM 1.9 mg/dL (1.8-2.4); POTASSIUM - SERUM 3.7 mmol/L (3.5-5.1); PROTEIN - SERUM 8.1 g/dL (6.4-8.2)
--- NOTE | 2017-10-19 21:00 | NUR ---
RECEIVED PT TO FLOOR FROM ER VIA STRETCHER. ORIENTED X4 AND LETHARGIC. GENERALIZED WEAKNESS. BURN TO LEFT BUTTOCKS COVERED WITH DRESSING. DAUGHTER SAID BURN WAS FROM HEATING PAD AT HOME. NO OTHER SKIN ISSUES NOTED. REVIEWED HOME MEDS AND HISTORY WITH DAUGHTER. SPOKE WITH DR. PIERSON ABOUT CONSULT AT 0785. WILL CONTINUE TO MONITOR.
[2017-10-19] MEDS ORDERED: PERCOCET 10/3251 TA1 PO (21:15)
[2017-10-19] MEDS ORDERED: ARAVA10 MG PO (21:17)
[2017-10-19] MEDS ORDERED: NORVASC5 MG PO (21:18)
[2017-10-19 22:34] VITALS: BP 200/92; BMI 35.5
[2017-10-20] VITALS: BP 127/71
[2017-10-20] MEDS ORDERED: TRIPLE ANTIB28.35 GM TP (05:42)
--- NOTE | 2017-10-20 07:39 | NUR ---
PT COMPLAINS OF HEADACHE WILL NOTIFY DR FOR POSSIBLE MEDS
--- NOTE | 2017-10-20 08:30 | NUR ---
PT ATE [address] CALLED AND NEEDS PT TO BE NPO TILL AFTER CT
--- NOTE | 2017-10-20 10:38 | NUR ---
PT NOTE-HERE FOR CVA. STATES HAD HEADACHE YESTERDAY AND HAS NOT SUBSIDED YET. NO NAUSEA AT THIS TIME. EKG MANAGER GOOD BUT SLIGHT WEAKNESS ON LEFT AND LEFT FOOT DROP NOTED-FAMILY STATES THIS IS NORMAL FOR HER. CALL LIGHT IN REACH
[2017-10-20 10:47] LABS: BASOPHILS 0.1 % (0-2); EOSINOPHILS 0.3 % (0-7); HEMATOCRIT 44.5 % (36.0-48.0); HEMOGLOBIN 15.2 g/dL (12-16); IMMATURE GRANULOCYTES 0.4 % (0-5); MCH 30.8 pg (26.0-34.0); MCHC 34.2 g/dL (31.0-37.0); MEAN PLATELET VOLUME 9.2 fL (7.4-10.4); MONOCYTES 8.9 % (2-11); NEUTROPHILS 74.3 % (40-80); PLATELET COUNT 314 10x3/uL (130-400); RBC 4.93 10x6/uL (4.00-5.40); RDW 13.7 % (11.5-14.5); WBC 14.1 10x3/uL (4.8-10.8)
[2017-10-20 10:49] LABS: MCV 90.3 fL (80.0-100.0)
[2017-10-20 11:16] LABS: ALBUMIN 2.8 g/dL (3.4-5.0); ANION GAP 13.7 mmol/L (8-16); BILIRUBIN - TOTAL 0.4 mg/dL (0.2-1.3); CALCIUM 10.1 mg/dL (8.5-10.1); CARBON DIOXIDE 26.5 mmol/L (21.0-32.0); CREATININE - SERUM 0.9 mg/dL (0.6-1.3); POTASSIUM - SERUM 3.2 mmol/L (3.5-5.1); PROTEIN - SERUM 7.5 g/dL (6.4-8.2)
[2017-10-20 11:34] VITALS: BP 162/92
[2017-10-20 12:16] VITALS: Ht 162.6 cm; Wt 88.0 kg
--- NOTE | 2017-10-20 13:05 | NUR ---
PT GIVEN 4MG ZOFRAN PER ORDER FOR NAUSEA WILL MONITER
--- NOTE | 2017-10-20 15:40 | NUR ---
PT GONE TO CT
--- NOTE | 2017-10-20 16:20 | NUR ---
PT RETURNED FROM CT NO PROBLEMS WILL MONITER CALL LIGHT IN REACH
--- NOTE | 2017-10-20 18:12 | NUR ---
OT NOTE: PT COMPLETED BED MOB WITH RAFAT Mishra THANK YOU, LATESHA SERRATO/Sandi
[2017-10-20 20:00] VITALS: BP 114/71
--- NOTE | 2017-10-20 23:24 | NUR ---
PATIENT STILL RATING PAIN A 7/10. REHEATED HOT PACK FOR HEAD, AND GAVE HER AN ADDITIONAL HOT PACK FOR HER NECK. PATIENT VERIFIED THE TEMPERATURE OF THE HOT PACK NOT TOO HOT BEFORE SHE APPLIED IT TO HER HEAD.
[2017-10-21 04:00] VITALS: BP 122/68
[2017-10-21 06:07] LABS: BASOPHILS 0.3 % (0-2); EOSINOPHILS 1.3 % (0-7); HEMATOCRIT 44.5 % (36.0-48.0); HEMOGLOBIN 14.7 g/dL (12-16); IMMATURE GRANULOCYTES 0.5 % (0-5); LYMPHOCYTES 25.8 % (15-50); MCV 90.8 fL (80.0-100.0); MONOCYTES 14.4 % (2-11); NEUTROPHILS 57.7 % (40-80); RDW 14.1 % (11.5-14.5); WBC 10.6 10x3/uL (4.8-10.8)
[2017-10-21 06:10] LABS: PLATELET COUNT 236 10x3/uL (130-400)
[2017-10-21 07:23] LABS: ALBUMIN 2.6 g/dL (3.4-5.0); ANION GAP 14.1 mmol/L (8-16); BILIRUBIN - TOTAL 0.28 mg/dL (0.2-1.3); CALCIUM 9.9 mg/dL (8.5-10.1); CARBON DIOXIDE 26.2 mmol/L (21.0-32.0); CREATININE - SERUM 0.9 mg/dL (0.6-1.3); POTASSIUM - SERUM 3.3 mmol/L (3.5-5.1); PROTEIN - SERUM 7.1 g/dL (6.4-8.2)
--- NOTE | 2017-10-21 08:00 | NUR ---
PT ASSESSMENT COMPLETE ASSSISTED TO BSC FOR VOIDING CONCENTRATED URINE 600 ML NOTED HAS RIGHT SIDED WEAKNESS AND FOOT DROP NOTED TO RIGHT SIDE. PT LEANS TO RIGHT HAS MODERATE TRUNK CONTROL WHILE SITTING UP. PT PLACED BACK TO BED ALARMS ON AND FUNCTIONAL SCDS IN PLACE
[2017-10-21 09:30] VITALS: BP 188/80
[2017-10-21 12:15] VITALS: BP 122/70
--- NOTE | 2017-10-21 14:59 | NUR ---
Patient Name: ROSE MARIE VILLEGAS Admission Status: ER Accout number: [id number] Admission Date: 10-19-2017 : 1945 Admission Diagnosis: Attending: GERSON PERRY Current LOS: 2 Anticipated DC Date: 10-24-2017 Planned Disposition: Home Primary Insurance: MEDICARE A & B Discharge Planning Comments: CM MET WITH PATIENT WITH D/C NEEDS AND PLANS. PATIENT STATED SHE LIVES WITH HER DAUGHTER (JULIAN) AND SHE WILL DRIVE PATIENT HOME AT DISCHARGE. PATIENT STATED SHE HAS NO STEPS OR STAIRS AT HOME. PATIENT STATED SHE IS INDEPENDENT WITH HER CARE AND HAS A WALKER, WHEELCHAIR, BS COMMODE, SHOWER CHAIR, CANE, OXYGEN HS, AND NEBULIZER AT HOME. PATIENTS PCP IS DR. PERRY AND PHARMACY IS [facility]. PATIENT IS REFUSING HH AT THIS TIME. CM WILL CONTINUE TO FOLLOW PATIENT WITH D/C NEEDS AND PLANS. PCP DR. PERRY [facility]- [phone] JULIAN (DAUGHTER) [phone] Tassel Snipper: Xiemna Tillman Is the patient Alert and Oriented? Yes 0 * How many steps to enter\exit or inside your home? 0 0 * PCP DR. PERRY 0 * Pharmacy [facility] 0 * Preadmission Environment Home with Family 0 * ADLs Independent 0 * Equipment Bedside Commode Cane Nebulizer Oxygen Shower Chair Walker Wheelchair 0 * List name and contact numbers for known caregivers / representatives who currently or will assist patient after discharge: JULIAN (DAUGHTER) [phone] * Community resources currently utilized None 0 * Additional services required to return to the preadmission environment? Yes 0 * Can the patient safely return to the preadmission environment? Yes 0 * Has this patient been hospitalized within the prior 30 days at any hospital? No 0 Grand Total: 0
[2017-10-21 16:08] VITALS: BP 134/65
--- NOTE | 2017-10-21 17:51 | NUR ---
OT NOTE: PT COMPLETED BED MOB WITH MOD A. PT COMPLETED BUE GROSS MOTOR AX FOR INCREASED I WITH BED MOB AND FUNCTIONAL AXS. THANKY YOU, LATESHA SERRATO/Sandi
--- NOTE | 2017-10-21 18:41 | NUR ---
PATIENT SITTING UP IN BED WITH NO COMPLAINTS. EYES OPEN WITH NO SIGNS OF DISTRESS. CALL LIGHT WITHIN REACH.
[2017-10-21 19:30] VITALS: BP 110/54
--- NOTE | 2017-10-21 23:45 | NUR ---
RESTING QUIETLY RESPIRATIONS WITH EASE AND UNLABORED. SR UP X2 CALL LIGHT WITHIN REACH.DENIES NEEDS.
[2017-10-21 23:50] VITALS: BP 141/73
[2017-10-22 03:30] VITALS: BP 150/79
[2017-10-22 05:35] LABS: BASOPHILS 0.6 % (0-2); EOSINOPHILS 2.7 % (0-7); HEMATOCRIT 38.5 % (36.0-48.0); HEMOGLOBIN 12.5 g/dL (12-16); IMMATURE GRANULOCYTES 0.3 % (0-5); LYMPHOCYTES 30.4 % (15-50); MCH 30.3 pg (26.0-34.0); MCHC 32.5 g/dL (31.0-37.0); MEAN PLATELET VOLUME 9.9 fL (7.4-10.4); MONOCYTES 11.9 % (2-11); NEUTROPHILS 54.1 % (40-80); PLATELET COUNT 246 10x3/uL (130-400); RBC 4.13 10x6/uL (4.00-5.40); RDW 14.4 % (11.5-14.5)
[2017-10-22 05:41] LABS: MCV 93.2 fL (80.0-100.0); WBC 6.7 10x3/uL (4.8-10.8)
[2017-10-22 05:57] LABS: ALBUMIN 2.4 g/dL (3.4-5.0); ANION GAP 12.3 mmol/L (8-16); BILIRUBIN - TOTAL 0.2 mg/dL (0.2-1.3); CALCIUM 9.2 mg/dL (8.5-10.1); CHOL - HDL RATIO 3.1 ratio (2.3-4.1); CREATININE - SERUM 0.9 mg/dL (0.6-1.3); LDL-HDL RATIO 1.7 ratio (1.5-3.5); POTASSIUM - SERUM 3.3 mmol/L (3.5-5.1); PROTEIN - SERUM 6.2 g/dL (6.4-8.2)
--- NOTE | 2017-10-22 07:00 | NUR ---
REPORT RECIEVED ASSUMED CARE. PATIENT IN BED WITH IV INTACT. NO COMPLAINTS AT THIS TIME. CALL LIGHT WITHIN REACH.
[2017-10-22 07:52] VITALS: BP 152/71
--- NOTE | 2017-10-22 08:17 | NUR ---
PATIENT IN BED WITH WITH IV INTACT. NO COMPLAINTS. AWAITING FOR VOLTAREN GEL. REPORT GIVEN TO CONRADO MANUEL. CALL LIGHT WITHIN REACH.
--- NOTE | 2017-10-22 09:56 | NUR ---
PT LYING IN BED ON LEFT SIDE STATED HEAD IS STILL HURTING HER AND PAIN IS AT A 8. PAIN MED WAS GIVEN AT 0658 PT CAN HAVE PERCOCET, ADMINISTER WITH 9 O'CLOCK MEDS. PT IV CAME OUT, PT HAS ROCEPHIN DUE AT 8PM HAS REQUESTED THAT IV BE RESITED LATER BECAUSE HER ARM HURTS, TOLD PT I WILL RESITE AFTER LUNCH TO LET HER ARM REST. CONTINUE WITH PT CAREPLAN
--- NOTE | 2017-10-22 10:20 | NUR ---
PT AND DAUGHTER INQUIRING ON VOLTAREN GEL FOR PT DROP FOOT. LOKING AND MED REQ MED WAS HELD BY NEIL YESTERDAY, WILL INQUIRE WHEN I SEE HER, ACK NOTES FOR POSSIBLE DC TO REHAB
--- NOTE | 2017-10-22 10:22 | NUR ---
NUTRITION F/U PT UP IN CHAIR, FAMILY PRESENT. TOLERATED SMALL AMT BREAKFAST. FAMILY REPORTS GOOD INTAKE POTATO SOUP "LAST NIGHT". STATES IMPROVED PO INTAKE PAST TWO DAYS. WILL CONTINUE TO PROVIDE DIET, MONITOR PO INTAKE. RD FOLLOWING
[2017-10-22] MEDS ORDERED: ESGIC TABLET1 TAB PO (11:22)
[2017-10-22] MEDS ORDERED: ASPIRIN325 MG PO (11:22)
[2017-10-22] MEDS ORDERED: IPRAT-ALBUT 0.5-3 ML UPD (11:22)
[2017-10-22] MEDS ORDERED: PROTONIX40 MG PO (11:23)
[2017-10-22] MEDS ORDERED: ROCEPHIN 1 GM/D51 G1 IV (11:24)
[2017-10-22 12:00] VITALS: BP 104/63
--- NOTE | 2017-10-22 12:53 | NUR ---
patient being discharged to inpatient rehab today. family at bedside. imm served
--- NOTE | 2017-10-22 17:12 | NUR ---
PT DC TO REHAB PAPERWORK SIGNED
== END 2017-10-22 17:13 | DRG 65 ==
LOC: D.ER 15:34 → D.MS 19:45
PROVIDERS: Family Medicine; Family Medicine Adult Medicine; Nurse Practitioner Family; ADMIT Emergency Medicine
DX: I63.9 Cerebral infarction, unspecified (principal); N39.0 Urinary tract infection, site not specified; E87.1 Hypo-osmolality and hyponatremia; I25.10 Atherosclerotic heart disease of native coronary artery without angina pectoris; M21.371 Foot drop, right foot; I48.91 Unspecified atrial fibrillation; I50.9 Heart failure, unspecified

== ENCOUNTER 2017-10-22 18:02 | Inpatient (IN) | payer MEDICARE, OTHER ==
[~2017-10-22] VITALS: Ht 162.6 cm; Wt 88.0 kg
--- NOTE | 2017-10-22 01:45 | NUR ---
PT. IN BED LYING ON HER LEFT SIDE WITH EYES CLOSED AND RESP. EVEN. CALL LIGHT WITHIN REACH.
--- NOTE | 2017-10-22 17:35 | NUR ---
RECIEVED TO [address]ORIENTED TO ROOM AND SURROUNDINGS.CL IN REACH.
[~2017-10-22 18:02] MED LIST changes: +ARAVA10 MG PO; +ASPIRIN325 MG PO; +ESGIC TABLET1 TAB PO; +IPRAT-ALBUT 0.5-3 ML UPD; +PERCOCET 10/3251 TA1 PO; +PROTONIX40 MG PO; +ROCEPHIN 1 GM/D51 G1 IV; +TRIPLE ANTIB28.35 GM TP
--- NOTE | 2017-10-22 19:50 | NUR ---
PT. IN BED WITH HOB UP FOR COMFORT AND STATING SHE NEEDS HER PAIN MED SOON I CAN GET IT. EXPLAINED TO PT. ADMISSION PROCESS AND SHE STATED SHE REMEMBERS FROM THE LAST TIME SHE WAS HERE. PT. STATES SHE EVEN REMEMBERS ME HER NURSE BEFORE. ADMISSION WILL BE COMPLETED A LITTLE LATER AND PT. AGREES. CALL LIGHT WITHIN REACH.
[2017-10-22 20:15] VITALS: BP 138/554
--- NOTE | 2017-10-22 20:50 | NUR ---
FOUND PT. IN OTHER BED-1114A. PT. STATES IT IS LOWER THEN THE BED SHE WAS IN AND SHE ALMOST FELL WHEN SHE WAS TRYING TO GET BACK INTO IT. INSTRUCTED PT. ON UNIT SAFETY AND SHE IS TO CALL FOR ASSISTANCE FOR ANY TRANSFERS UNTIL THE THERAPIST STATES OTHERWISES. PT. AGREES TO BE COMPLIANT WITH USING CALL LIGHT FOR ASSISTANCE, BUT WANTS TO STAY IN THE FIRST BED. TRANSFER WILL BE DONE.
[2017-10-22 23:47] VITALS: BP 138/54; BMI 33.3
--- NOTE | 2017-10-22 23:47 | NUR ---
ADMISSION PAPER WORK AND ASSESSMENT COMPLETED. PT. IN BED WITH HOB UP FOR COMFORT HAVE ATTEMPTED TO START I.V. UNSUCCESSFULLY. HAD RN FROM L&D COME OVER TO START I.V. AND SHE WAS UNSUCCESSFUL. NATHANIEL PEÑA RN CALLED ICU TO SEE IF ONE OF THEIR NURSES WOULD COME AND START I.V. AND NATHANIEL WAS TOLD THEY WOULD SEND SOMEONE WHEN THEY WERE AVAILABLE. PT. INFORMED OF SITUATION AND SHE UNDERSTANDS.
--- NOTE | 2017-10-23 00:49 | NUR ---
ICU NURSE HAS NEVER SHOWED UP TO START I.V. NATHANIEL PEÑA RN CALLED THE NURSERY TO SEE IF ONE OF THEIR NURSES WOULD COME AND ATTEMPT I.V. SCOTT BELTRAN HERE TO SITE IV. WITH 2ND ATTEMP I.V. SITED TO RIGHT INNER FOREARM AND I.V. ANTIBIOTIC STARTED.
--- NOTE | 2017-10-23 03:28 | NUR ---
PT. IN BED WITH HOB UP FOR COMFORT AND CONTINUES TO LIE ON HER LEFT SIDE. EYES CLOSED AND RESP. EVEN WITH CALL LIGHT WITHIN REACH.
[2017-10-23 05:42] LABS: BASOPHILS 0.4 % (0-2); EOSINOPHILS 3.4 % (0-7); HEMATOCRIT 41.1 % (36.0-48.0); HEMOGLOBIN 13.3 g/dL (12-16); IMMATURE GRANULOCYTES 0.2 % (0-5); LYMPHOCYTES 28.7 % (15-50); MCH 29.9 pg (26.0-34.0); MCHC 32.4 g/dL (31.0-37.0); MCV 92.4 fL (80.0-100.0); MEAN PLATELET VOLUME 9.6 fL (7.4-10.4); MONOCYTES 9.5 % (2-11); NEUTROPHILS 57.8 % (40-80); PLATELET COUNT 262 10x3/uL (130-400); RBC 4.45 10x6/uL (4.00-5.40); RDW 14.3 % (11.5-14.5); WBC 8.2 10x3/uL (4.8-10.8)
[2017-10-23 05:58] LABS: CARBON DIOXIDE 28.5 mmol/L (21.0-32.0); POTASSIUM - SERUM 3.5 mmol/L (3.5-5.1)
--- NOTE | 2017-10-23 08:00 | NUR ---
SHIFT ASSMT COMPLETED.STATES HAVING A DUMONT.SLUMPED IN CHAIR.CL IN REACH.
[2017-10-23 08:26] VITALS: BP 162/82
--- NOTE | 2017-10-23 12:00 | NUR ---
ALARMS ON.FAMILY VISITED.STATES EVERSENSE STROKE'SHE HAS HAD A DUMONT.
--- NOTE | 2017-10-23 19:20 | NUR ---
PT. IN BED LYING ON HER LEFT SIDE WITH EYES CLOSED AND RESP. EVEN. PT. AWAKENS EASILY FOR ASSESSMENT. NO VOICED NEEDS AT THIS TIME AND HER CALL LIGHT IS WITHIN REACH.
[2017-10-23 21:14] VITALS: BP 164/85
--- NOTE | 2017-10-23 23:08 | NUR ---
PT. IN BED LYING ON HER LEFT SIDE WITH EYES CLOSED AND RESP. DEEP AND EVEN. CALL LIGHT WITHIN REACH.
--- NOTE | 2017-10-24 03:08 | NUR ---
PT. IN BED WITH HOB SLIGHTLY ELEVATED. EYES CLOSED AND RESP. EVEN WITH CALL LIGHT WITHIN REACH.
--- NOTE | 2017-10-24 07:36 | NUR ---
RESTING QUIETLY IN BED. CALL LIGHT IN REACH. BED IN LOWEST POSITION.
[2017-10-24 08:02] VITALS: BP 131/63
[2017-10-24 10:56] VITALS: Ht 162.6 cm; Wt 88.0 kg
--- NOTE | 2017-10-24 12:54 | NUR ---
D/C HOME WITH ALL PERSONAL BELONGINGS. LEFT FLOOR USING OWN OXYGEN. MEDS CALLED INTO [facility]. REVIEWED D/C INSTRUCTIONS AND MEDS WITH PT AND DTR PRIOR TO D/C. SHE WAS GIVEN HARD SCRIPT FOR PAIN MEDS. SHE DENIED NEEDS OR QUESTIONS PRIOR TO D/C.
--- NOTE | 2017-10-24 13:31 | NUR ---
RESTING QUIETLY IN BED. HAS HAD DUMONT ALL DAY AND KEEPS A PILLOW OVER HER HEAD
--- NOTE | 2017-10-24 17:03 | NUR ---
RESTING QUIETLY IN BED. PAIN MEDS GIVEN ORDERED AND REQUESTED. STILL C/O CONSTANT DUMONT.
--- NOTE | 2017-10-24 19:48 | NUR ---
RECIEVED LAYING IN BED WITH EYES CLOSED. BED NOT ELEVATED PER PT PREFERENCE. DOING UPDRAFT. DEIES ANY PAIN. CALL LIGHT IN REACH.
[2017-10-24 20:50] VITALS: BP 137/82
--- NOTE | 2017-10-24 23:11 | NUR ---
C/O HIP PAIN AT 8. REQUESTING PAIN MEDICATION. STATES PAIN IS CHRONIC. MED GIVEN PER ORDERS.
--- NOTE | 2017-10-25 02:47 | NUR ---
RESTING IN BED WITH EYES CLOSED. N O S/S OF DISTRESS OBSERVED. CALL LIGHT IN REACH.
[2017-10-25 08:06] VITALS: BP 142/73
--- NOTE | 2017-10-25 12:33 | NUR ---
LAYING IN BED RESTING QUIETLY. HAD EPISODE OF SUDDEN WEAKNESS AND MORE SLOW TO RESPOND. V/S DECREASED TO 72/41, 73, 22, 92% ON 2L. THIS OCCURED WHEN PT WAS TRANSFERED TO / TO USE BATHROOM. MAX ASST TO GET HER BACK IN BED. OXYGEN IN PLACE. SHE REMAINED ALERT AND ORIENTED X4. DENIED WORSE PAIN TO HEAD, DENIES N/V OR VISION CHANGES. FERMENTING CELLAR DROPPER WERE EQUAL. STATED SHE FELT BAD. V/S MONITORED CLOSELY. DR. VARNER NOTIFIED. NO NEW ORDERS. WILL CONTINUE TO MONITOR. SPEECH HAS NOT SLURRED
--- NOTE | 2017-10-25 16:02 | NUR ---
RESTING QUIETLY IN BED. WAKES EASILY. STILL ORIENTED X4. SPEECH CLEAR. MOD ASST TO TRANSFER TO / TO GO TO BATHROOM.
--- NOTE | 2017-10-25 18:27 | NUR ---
RESTING QUIETLY IN BED. FAMILY CAME TO VISIT THIS EVENING. IS NOW BACK TO BASELINE. GETS UP WITH MIN ASST. ALERT AND ORIENTED X4. DENIES INCREASED PAIN TO HEAD.
[2017-10-25 19:36] VITALS: BP 109/41
--- NOTE | 2017-10-25 19:36 | NUR ---
RECIEVED LAYING IN BED ON HER RIGHT SIDE WITH EYES CLOSED. PLEASANT AND STATES " I DON'T FEEL GOOD". V/S'S TAKEN AND ASSESSMENT COMPLETED. CALL LIGHT AND OVERBED TABLE IN REACH.
--- NOTE | 2017-10-25 21:54 | NUR ---
RESTING IN BED WITH EYES CLOSED AT THIS TIME. IV ROCEPHIN RUNNING AT 100ML/HR AT THIS TIME. IV TO LFA CHECKED FOR PATENCY AND FLUSHED PER POLICY. STATES "I FEEL BETTER AND MY HEADACHE IS GONE". CALL LIGHT IN REACH.
--- NOTE | 2017-10-26 00:56 | NUR ---
RESTING IN BED WITH EYES OPEN AND LOOKING AT A BOOK. DENIES ANY PAIN OR NEEDS. CALL LIGHT IN REACH.
--- NOTE | 2017-10-26 04:01 | NUR ---
UP IN BED AWAKE AND DRINKING COFFEE. PLEASANT AND TALKATIVE. CALL LIGHT AND OVERBED TABLE IN REACH.
--- NOTE | 2017-10-26 09:56 | NUR ---
ATE A FEW BITES OF BREAKFAST THEN ASK FOR ASST TO LAY BACK DOWN. STATES HER DUMONT IS BETTER AND SHE DENIES NEEDS. SHE IS ARMAS X4. LEFT FOOT DROP NOTED. LIMP TO LLE DUE TO OLD FOOT/ANKLE SURGERY.
[2017-10-26 12:13] VITALS: BP 92/44
[2017-10-26 19:36] VITALS: BP 110/45
--- NOTE | 2017-10-26 19:36 | NUR ---
RECIEVED UP IN BED WITH EYES OPEN AND TV ON. DTR CALLED EARLIER AND STATED PT CAN NOT BREATH . SHE IS SOB. UPON ASSESSING PT 02 SAT 97% ON 2LITERS OF 02. PT JUST RECIEVED UPDRAT AND EDUCATED ON SIDE EFFECTS OF ANXIETY. VOICED UNER STANDING. C/O HIP PAIN AND REQUEST PAIN MEDICATION. MEDS GIVEN PER ORDERS. CALL LIGHT AND OVERBED TABLE IN REACH.
--- NOTE | 2017-10-27 00:09 | NUR ---
RESTING IN BED WITH EYES CLOSED. HOB ELEVATED AND O2@ 2 LITERS PER N/C.. RESP EVEN AND UNLABORED. CALL [facility] IN REACH.
--- NOTE | 2017-10-27 03:23 | NUR ---
RESTING IN BED WITH EYES CLOSED. NO S/S OF DISTRESS OBSERVED. IV TO RIGHT FOREARM INTACT AND CHECKED FOR PATENCY. CONTINUES TO RECIEVE ROCEPHIN IV FOR PNEUMONIA. ALSO, HAS A FREQUENT LOOSE COUGH THAT IS PRODUCTIVE AND LIGHT BROWN. CALL LIGHT AND OVERBED TABLE IN REACH.
[2017-10-27 06:13] LABS: BASOPHILS 0.5 % (0-2); EOSINOPHILS 6.1 % (0-7); HEMATOCRIT 35.1 % (36.0-48.0); HEMOGLOBIN 11.5 g/dL (12-16); IMMATURE GRANULOCYTES 0.2 % (0-5); MCH 30.2 pg (26.0-34.0); MCHC 32.8 g/dL (31.0-37.0); MCV 92.1 fL (80.0-100.0); MEAN PLATELET VOLUME 10.1 fL (7.4-10.4); MONOCYTES 11.7 % (2-11); NEUTROPHILS 51.5 % (40-80); RBC 3.81 10x6/uL (4.00-5.40); RDW 14.4 % (11.5-14.5); WBC 4.3 10x3/uL (4.8-10.8)
[2017-10-27 06:27] LABS: ANION GAP 13.3 mmol/L (8-16); CALCIUM 8.7 mg/dL (8.5-10.1); CARBON DIOXIDE 26.5 mmol/L (21.0-32.0); POTASSIUM - SERUM 3.8 mmol/L (3.5-5.1)
[2017-10-27 06:56] LABS: PLATELET COUNT 184 10x3/uL (130-400)
[2017-10-27 07:30] VITALS: BP 166/80
--- NOTE | 2017-10-27 12:29 | NUR ---
RESTING QUIETLY IN BED. HAS BEEN UP WORKING WITH THERAPY. HAS MILD HEAD ACHE BUT STATES IT IS BETTER THAN IT WAS OVER WEEKEND.
--- NOTE | 2017-10-27 18:37 | NUR ---
RESTING QUIETLY IN BED. CALL LIGHT IN REACH. BED IN LOWEST POSITION
--- NOTE | 2017-10-27 20:21 | NUR ---
RECIEVED UP IN BED WITH EYES OPEN AND TV ON. PLEASANT AND COOPERATIVE. DENIES ANY NEEDS AT THIS TIME.
[2017-10-27 20:41] VITALS: BP 126/61
--- NOTE | 2017-10-28 08:00 | NUR ---
SHIFT ASSMT COMPLETED.CL IN REACH.
[2017-10-28 08:01] VITALS: BP 137/76
--- NOTE | 2017-10-28 12:00 | NUR ---
SITTING UP IN WC EATING.CL IN REACH.
--- NOTE | 2017-10-28 12:11 | NUR ---
PATIENT ADMITTED TO REHAB FROM ACUTE FLOOR. HER PCP IS DR. PERRY. SHE LIVES WITH HER DAUGHTER AND WHEN DISCHARGED WILL RETURN WITH HER DAUGHTER. DME AT HOME: WALKER, WHEELCHAIR, BEDSIDE COMMODE, SHOWER CHAIR, CANE O2 AND A NEBULIZER. WILL CONTINUE TO FOLLOW WITH PATIENT. TENATIVE DISCHARGE DATE IS 11/07/17
--- NOTE | 2017-10-28 14:00 | RHP ---
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 HISTORY OF PRESENT ILLNESS: The patient admitted to inpatient rehab with stroke/left cerebellar infarction. She is a 72-year-old female patient admitted to [facility] with acute onset of headache. She had not felt well on the day prior to acute hospital onset. She was having nausea and vomiting. She was noted to be leaning towards her right side. She had a CT scan and was seen by neurology and found to have a left cerebellar infarction. She has past medical history including hypertension, coronary artery disease with stents, rheumatoid arthritis, CHF, multiple hip surgeries, chronic footdrop, and past ankle surgery. She lives at home with her daughter and family. She wears O2 at bedtime. She is using a rolling walker for mobility and still driving prior to this incident. She was independent with her ADLs. She is currently set up for max assist for ADLs and max assist to total assist for mobility. She continues to lean towards the right believing that she is standing upright. She has some urinary stress incontinence and wears Breeze and uses a bedside commode at this time. She is currently receiving IV antibiotic therapy for UTI that was consistent with E. coli. She is currently receiving O2 at 2 liters via nasal cannula continuously at this time. She and her daughter plan to return home with her prior level of functioning. COMORBIDITIES: Include chronic AFib, UTI, rheumatoid arthritis, chronic hypothyroidism, non-Q-wave NE in the past, chronic pain, hypertension, obesity, hyponatremia, chronic kidney disease, CVA, right-sided weakness, debility, self-care deficits noted, and double vision. PAST MEDICAL HISTORY: Significant for hypertension, coronary artery disease, skin cancer, colonic rupture in the past, left footdrop, rheumatoid arthritis, hypothyroidism, NE in the past, and CHF. PAST SURGICAL HISTORY: Includes gallbladder surgery, back surgery, and fracture of her left ankle. She has had colostomy, colon resection, and multiple hip surgeries. ALLERGIES: SULFA AND MORPHINE. CURRENT MEDICATIONS: Include Protonix 40 mg daily, lisinopril 10 mg daily, Synthroid 50 mcg daily, Arava 10 mg daily, hydrochlorothiazide 12.5 mg daily, folate 1 mg daily, carvedilol 12.5 mg b.i.d. with meals, aspirin 325 mg daily, Norvasc 5 mg daily, Rocephin 1 gram daily, and polyethylene glycol 17 grams in 8 ounces of water daily. She is on Pravachol 20 mg daily. She is on Percocet 10/325 one tab q. 6 hours p.r.n., Singulair 10 mg at bedtime, DuoNeb updrafts as needed, diclofenac gel applied topically as needed, and Fioricet as needed for headaches. HISTORY AND PHYSICAL [id number] ROSE MARIE VILLEGAS HABITS: No alcohol or tobacco use. FAMILY HISTORY: Noncontributory. SOCIAL HISTORY: The patient hopes to return back home once again with her daughter and get back to her prior level of functioning. REVIEW OF SYSTEMS: GENERAL: She does complain of weakness., worse on the right side. HEENT: Denies cold, cough, or congestion. CARDIOVASCULAR: Denies any chest pain. PHYSICAL EXAMINATION: VITAL SIGNS: Stable. Afebrile. GENERAL: A somewhat obese female, in no acute distress, alert upon exam. HEENT: Normocephalic and atraumatic. Mucosa moist. NECK: Supple. No lymphadenopathy. LUNGS: Clear at this time. HEART: Regular rate and rhythm. ABDOMEN: Benign. EXTREMITIES: No clubbing, cyanosis, or edema. NEUROLOGIC: She does have noted weakness on her right side as compared to her left. LABORATORY DATA: White count is 8.2, H&H 13 and 41, and platelet count is noted to be 262. Her sodium is 137, potassium 3.5, BUN and creatinine are 14 and 1.0, and blood sugar is noted to be 98. ASSESSMENT: This is a 72-year-old female patient admitted to rehab with working diagnosis of left-sided CVA with right body involvement. The patient has potential to make improvement. We instituted the following multidisciplinary therapies including, but not limited to physical, occupational, respiratory, speech, nutritional services, prosthetics, and orthotics. Given her complex condition and risk for more complications, rehabilitation services cannot be provided at a low level of care such as correction facility. PLAN: 1. Admit to [facility] for intensive inpatient therapy to include the following disciplines; A. Physical therapy to improve gait, all transfer skills, and bed mobility to a modified level. B. Occupational therapy to improve activities of daily living to a modified level. C. Case management to assist with discharge planning and placement options. D. Nutrition to assist with nutritional needs. E. Rehabilitation nursing to assist in monitoring the patient's underlying medical conditions and to assist with any type of bowel or bladder management. 2. The patient's current medications and medical care will be continued. 3. The patient will be placed on standard fall precautions. 4. The patient's estimated length of stay is approximately 7-10 days. 5. I will discuss this patient during care team staff meeting this week. We will go ahead and get speech therapy to follow her throughout her stay and we will hopefully get her back home with her daughter as soon as possible. TRANSINT:[id number] Voice Confirmation ID: [id number] DOCUMENT ID: [id number] HISTORY AND PHYSICAL [id number] ROSE MARIE VILLEGAS notes whether there has been none or any medical/functional change since admission: - No change since preadmission screen. CELSO attests patient continues to be appropriate for IRF: - Continues to be appropriate. ROSETTA VARNER MD at 1400 CC: [id number] DICTATION DATE: 10/23/17 1630 PUBLIC HEALTH ANALYST: 10/23/17 [address] [facility] [address] [place] [address]
--- NOTE | 2017-10-28 14:16 | NUR ---
Nutrition Follow Up: Pt was asleep at the time of RD visit. Interview deferred. Pt is eating 11% meal avg on an AHA diet. +BM 10/23/17. Meds and labs reviewed. Will change diet to regular to encourage po intake. Will continue to provide selective menus and honor food preferences. RD following.
--- NOTE | 2017-10-28 19:40 | NUR ---
PT. IN BED WITH HOB UP FOR COMFORT AND LYING ON HER RIGHT SIDE. ASSESSMENT COMPLETED. NO VOICED NEEDS AT THIS TIME AND HER CALL LIGHT IS WITHIN REACH.
[2017-10-28 21:45] VITALS: BP 127/64
--- NOTE | 2017-10-28 23:19 | NUR ---
PT. IN BED WITH HOB UP FOR COMFORT WITH EYES CLOSED AND RESP. EVEN. O2 ON VIA N/C AT 2L/MIN WITHOUT ANY S/S DISTRESS OBSERVED. CALL LIGHT WITHIN REACH.
--- NOTE | 2017-10-29 01:49 | NUR ---
assisted pt to bathroom and back to bed. pt is a min. assist. turned on ivone alarm.
--- NOTE | 2017-10-29 04:21 | NUR ---
PT IN BED WITH HOB UP FOR COMFORT. EYES CLOSED. CHEST RISING AND FALLING. BED IN LOWEST POSITION AND CALL LIGHT WITHIN REACH. OBIE ALARM ON.
[2017-10-29 07:06] LABS: BASOPHILS 0.7 % (0-2); EOSINOPHILS 6.7 % (0-7); HEMATOCRIT 37.9 % (36.0-48.0); HEMOGLOBIN 12.3 g/dL (12-16); LYMPHOCYTES 40.4 % (15-50); MCH 30.1 pg (26.0-34.0); MCHC 32.5 g/dL (31.0-37.0); MCV 92.7 fL (80.0-100.0); MEAN PLATELET VOLUME 9.7 fL (7.4-10.4); MONOCYTES 9.6 % (2-11); NEUTROPHILS 42.6 % (40-80); PLATELET COUNT 210 10x3/uL (130-400); RBC 4.09 10x6/uL (4.00-5.40); RDW 14.3 % (11.5-14.5); WBC 4.5 10x3/uL (4.8-10.8)
[2017-10-29 07:24] LABS: ANION GAP 13.5 mmol/L (8-16); CALCIUM 9.2 mg/dL (8.5-10.1); CARBON DIOXIDE 27.2 mmol/L (21.0-32.0); POTASSIUM - SERUM 3.7 mmol/L (3.5-5.1)
--- NOTE | 2017-10-29 08:00 | NUR ---
SHIFT ASSMT COMPLETED.NO CO DUMONT THIS AM.MEAL SET-UP PROVIDED.CL IN REACH.
[2017-10-29 08:26] VITALS: BP 153/86
--- NOTE | 2017-10-29 11:55 | NUR ---
RESPITORY THERAPIST GIVEN PATIENT A ALESHIA KULKARNI [place]. CRACKLES NOTED BILATERAL LUNGS
--- NOTE | 2017-10-29 13:15 | NUR ---
PRN PAIN MEDICATION GIVEN FOR HIPS AND BILATERAL LEGS
--- NOTE | 2017-10-29 15:12 | NUR ---
CARE TEAM MEETING: PATIENT PROGRESSING WELL IN THERAPY. TENATIVE DISCHARGE DATE IS 11/07/17. PATIENT WILL BE RA AT NEXT MEETING. WILL CONTINUE TO FOLLOW WITH PATIENT. NO FAMILY AT BEDSIDE.
[2017-10-29 19:41] VITALS: BP 141/54
--- NOTE | 2017-10-29 19:41 | NUR ---
RECIEVED UP IN BED WITH EYES OPEN AND TV ON. PLEASANT AND COOPERATIVE. DENIES NAY PAIN OR NEEDS. CALL LIGHT IN REACH.
--- NOTE | 2017-10-29 21:19 | NUR ---
RESTING IN BED WITH EYES CLOSED. NO S/S OF DISTRESS OBSERVED. CALL LIGHT AND OVERBED TABLE IN REACH.
--- NOTE | 2017-10-30 02:25 | NUR ---
RESTING IN BED WITH EYES CLSOED. NO S/S OF DISTRESS OBSERVED. O2 @ 2LITERPER N/C IN PLACE. RESP EVEN AND UNLABORED. CALL LIGHT IN REACH.
--- NOTE | 2017-10-30 06:59 | NUR ---
UP IN W/C IN ROOM TALKING WITH ROOMMATE. PLEASANT AND COOPERATIVE. DENIES ANY PAIN AT THIS TIME. CALL LIGHT IN REACH.
--- NOTE | 2017-10-30 07:40 | NUR ---
SITTING UP ON SIDE OF BED EATING BREAKFAST. ALERT AND ORIENTED X4. NO S/SX OF RESPIRATORY DISTRESS NOTED. CALL LIGHT AND PERSONAL ITEMS WITHIN REACH, BED LOW, SR X3, BED ALARM ON. WILL CONTINUE TO MONITOR
[2017-10-30 08:17] VITALS: BP 160/80
--- NOTE | 2017-10-30 09:15 | NUR ---
ADMINISTERED MORNING MEDS WHOLE WITHOUT DIFFICULTY. DENIES ANY NEEDS OR PAIN. CALL LIGHT AND PERSONAL ITEMS WITHIN REACH, BED LOW AND ALARM ON. WILL CONTINUE TO MONITOR
--- NOTE | 2017-10-30 12:19 | NUR ---
SITTING UP IN W/C VISITING NEIGHBOR. DENIES ANY NEEDS. NO S/SX OF ACUTE DISTRESS NOTED. CALL LIGHT AND PERSONAL ITEMS WITHIN REACH, W/C BRAKES LOCKED. WILL CONTINUE TO MONITOR
--- NOTE | 2017-10-30 14:25 | NUR ---
LYING IN BED EYES CLOSED RESTING QUIETLY. DENIES ANY NEEDS. NO S/SX OF ACUTE DISTRESS NOTED. CALL LIGHT AND PERSONAL ITEMS WITHIN REACH, BED LOW AND ALARM ON. WILL CONTINUE TO MONITOR
--- NOTE | 2017-10-30 17:39 | NUR ---
EATING SUPPER IN ROOM
--- NOTE | 2017-10-30 17:52 | NUR ---
SITTING UP IN BED EATING DINNER. PT IS VERY ANXIOUS WILL ADMINISTER 0.5MG OF ATIVAN PER ORDER. CALL LIGHT WITHIN REACH, BED LOW AND ALARM ON. WILL CONTINUE TO MONITOR
[2017-10-30 19:47] VITALS: BP 129/63
--- NOTE | 2017-10-30 19:47 | NUR ---
RECIEVED UP IN BED WITH EYES CLOSED. EASILY AROUSES WITH VERBAL STIMULI. PLEASANT AND TALKATIVE. DENIES ANY NEEDS AT THIS TIME. O2@ 2.5 LITERS PER N/C. HOB ELEVATED TO 30 DEGREES. CALL LIGHT AND OVERBED TABLE IN REACH.
--- NOTE | 2017-10-30 21:06 | NUR ---
RESTING IN BED WITH EYES OPEN AND TV ON. PLEASANT AND COOPERATIVE. ALERT AND ORIENTED X 4. O2@ 2.5 LITERS PER N/C. RESP. EVEN AND UNLABORED. CALL LIGHT AND OVERBED TABLE IN REACH.
--- NOTE | 2017-10-31 00:08 | NUR ---
RESTING IN BED WITH EYES CLSOED. HOB ELEVATED. CALL LIGHT AND OVERBED TABLE I REACH.
--- NOTE | 2017-10-31 00:57 | NUR ---
C/O BEING SOB AND ANXIOUS. O2 SAT 97%. ATIVAN GIVEN FOR ANXIETY WILL REASSESS.
--- NOTE | 2017-10-31 04:46 | NUR ---
RESTING IN BED WITH EYES CLOSED. NO S/S OF DISTRESS OBSERVED. USES CALL LIGHT FOR ASSIST TO TOILET. O2@ 2LITERS PER N/C. HOB ELEVATED WITH RESP. EVEN AND UNLABORED. CALL LIGHHT AND OVERBED TABLE IN REACH.
[2017-10-31 06:33] LABS: ANION GAP 12.6 mmol/L (8-16); CALCIUM 9.1 mg/dL (8.5-10.1); CARBON DIOXIDE 27.9 mmol/L (21.0-32.0); POTASSIUM - SERUM 3.5 mmol/L (3.5-5.1)
[2017-10-31 06:35] LABS: HEMATOCRIT 33.5 % (36.0-48.0); HEMOGLOBIN 11.2 g/dL (12-16); LYMPHOCYTES 38.2 % (15-50); MCH 29.8 pg (26.0-34.0); MCHC 33.4 g/dL (31.0-37.0); MCV 89.1 fL (80.0-100.0); MEAN PLATELET VOLUME 9.1 fL (7.4-10.4); NEUTROPHILS 45.9 % (40-80); PLATELET COUNT 209 10x3/uL (130-400); RBC 3.76 10x6/uL (4.00-5.40); RDW 13.6 % (11.5-14.5); WBC 4.7 10x3/uL (4.8-10.8)
--- NOTE | 2017-10-31 08:10 | NUR ---
PT RESTING IN BED WITH EYES OPEN CALL LIGHT IN REACH WILL MONITER
[2017-10-31 09:01] VITALS: BP 141/76
--- NOTE | 2017-10-31 10:59 | NUR ---
PT RESTING IN BED WITH EYES OPEN CALL LIGHT IN REACH WILL MONITER
[2017-10-31 19:41] VITALS: BP 131/70
--- NOTE | 2017-10-31 19:41 | NUR ---
RESTING IN BED WITH EYES OPEN AND TV ON. PLEASANT AND COOPERATIVE. ALERT AND ORIENTED. DENIES ANY NEEDS. CALL LIGHT IN REACH.
[2017-10-31 20:58] VITALS: BP 131/70
--- NOTE | 2017-11-01 03:38 | NUR ---
ASSISTED TO B/R WITH MIN ASSIST. ABLE TO PROPELL SELF IN W/C AND TRANSFER INDEPENDENTLY. USES CALL LIGHT FOR ASSIST. ASSISTED BACK TO BED. CALL LIGHT AND OVERBED TABLE IN REACH.
--- NOTE | 2017-11-01 06:38 | NUR ---
C/O ANXIETY EARLIER AND REQUESTING ATIVAN. MED GIVEN PER ORDERS. CALL LIGHT AND OVERBED TABLE IN REACH.
--- NOTE | 2017-11-01 08:37 | NUR ---
SITTING UP IN CHAIR.PLAN FOR DISCHARGE TO HOME TODAY.
[2017-11-01] MEDS ORDERED: ATIVAN0.5 MG PO (11:37)
[2017-11-01] MEDS ORDERED: PERCOCET 10/3251 TA1 PO (11:39)
--- NOTE | 2017-11-01 13:39 | NUR ---
PT DISCHARGED TO HOME VIA WC WITH DAUGHTER DISCHARGE SUMMARY AND MEDS REVIEWED WITH PT AND DAUGHTER ALL MEDS CALLED TO [facility]RES [facility]AYAS [facility]
--- NOTE | 2017-11-04 14:05 | NUR ---
LATE ENTRY: 11/01/17: PATIENT DISCHARGED HOME WITH FAMILY. WRITTEN SCRIPT GIVEN FOR PATIENT TO RECIEVE OUTPATIENT THERAPY. NO NEW DME NEEDED AT THIS TIME. [facility] FORM SIGNED, EXPLAINED AND FILED IN CHART.
--- NOTE | 2017-12-25 10:20 | DS ---
PATIENT:ROSE MARIE VILLEGAS :41 MEDICAL RECORD: [id number] DISCHARGE SUMMARY ADMISSION DATE: 10/22/17 DISCHARGE DATE: 11/01/17 This is a discharge dated 11/01/2017 from the inpatient rehab. PRIMARY DIAGNOSIS: Decreased functional mobility and ability to provide activities of daily living secondary to a stroke. SECONDARY DIAGNOSES: 1. Hypertension. 2. Coronary artery disease. 3. Rheumatoid arthritis. 4. Congestive heart failure. 5. Chronic foot drop. 6. Nocturnal hypoxemia. 7. Urinary tract infection. 8. Stress incontinence. 9. Right-sided weakness. 10. Hypothyroidism. 11. Hyponatremia. 12. Hyperlipidemia. 13. Anemia. HOSPITAL COURSE: Full H&P is located elsewhere on the chart on this 72-year-old female who was admitted to inpatient rehab for physical therapy and occupational therapy to improve gait, transfer skills, bed mobility, and activities of daily living to a modified independent level. She was evaluated by PT and OT and their plans of care were followed. She required detention care for observation and assessment and medication administration. She continued on appropriate home medications as well as nocturnal oxygen. Electrolytes were managed by protocol. She was cooperative with therapies, progressing towards goals. Case management was involved for discharge planning. She was considered stable for discharge on 11/01/2017. DISCHARGE MEDICATIONS: As per discharge medication reconciliation. DISCHARGE DISPOSITION: The patient is discharged home. She will continue her current diet and level of activity. She will follow up with specialists and consultants as directed. At least 30 minutes was spent in this discharge activity. TRANSINT:[id number] Voice Confirmation ID: [id number] DOCUMENT ID: [id number] Dictated By: JOSEE FOREMAN I have interviewed/examined the above patient and agree with these documented findings. DISCHARGE SUMMARY REPORT [id number] ROSE MARIE VILLEGAS SCOTT MD at 1020 at 1023 CC: [id number] DICTATION DATE: 12/21/17 1508 STEAM TUNNEL FEEDER: 12/22/17 1040 DIS IN 11/01/17 [place] [address]
== END 2017-11-01 13:43 | disposition home or self-care (01) | DRG 65 ==
LOC: D.REHAB 18:02
PROVIDERS: ADMIT Emergency Medicine
DX: I63.9 Cerebral infarction, unspecified (principal); I69.351 Hemiplegia and hemiparesis following cerebral infarction affecting right dominant side; N39.0 Urinary tract infection, site not specified; E87.1 Hypo-osmolality and hyponatremia; R53.81 Other malaise; I48.2 Chronic atrial fibrillation; M06.9 Rheumatoid arthritis, unspecified; E03.9 Hypothyroidism, unspecified; E66.9 Obesity, unspecified; I12.9 Hypertensive chronic kidney disease with stage 1 through stage 4 chronic kidney disease, or unspecified chronic kidney disease; N18.9 Chronic kidney disease, unspecified; G89.29 Other chronic pain

== ENCOUNTER 2017-11-04 17:39 | Inpatient (IN) | payer MEDICARE, OTHER ==
[~2017-11-04] VITALS: Ht 162.6 cm; Wt 90.1 kg
[~2017-11-04 17:39] MED LIST changes: +ATIVAN0.5 MG PO
[2017-11-04 18:54] LABS: APPEARANCE HAZY (CLEAR); BILIRUBIN NEGATIVE (NEGATIVE); COLOR YELLOW (YELLOW); GLUCOSE NEGATIVE (NEGATIVE); KETONE NEGATIVE (NEGATIVE); NITRITE POSITIVE (NEGATIVE); PROTEIN TRACE mg/dL (NEGATIVE); UROBILINOGEN NORMAL (NORMAL)
[2017-11-04 18:55] LABS: BACTERIA MANY /hpf (NONE SEEN); EPITHELIAL CELLS RARE /hpf (0-5)
[2017-11-04 19:50] LABS: BASOPHILS 0.2 % (0-2); EOSINOPHILS 1.5 % (0-7); HEMATOCRIT 36.1 % (36.0-48.0); HEMOGLOBIN 11.9 g/dL (12-16); IMMATURE GRANULOCYTES 0.2 % (0-5); LYMPHOCYTES 17.7 % (15-50); MCH 30.1 pg (26.0-34.0); MCV 91.4 fL (80.0-100.0); MEAN PLATELET VOLUME 9.5 fL (7.4-10.4); MONOCYTES 11.4 % (2-11); RBC 3.95 10x6/uL (4.00-5.40); RDW 13.8 % (11.5-14.5); WBC 10.1 10x3/uL (4.8-10.8)
[2017-11-04 19:52] LABS: PLATELET COUNT 264 10x3/uL (130-400)
[2017-11-04 20:08] LABS: ALBUMIN 2.4 g/dL (3.4-5.0); ANION GAP 12.4 mmol/L (8-16); BILIRUBIN - TOTAL 0.18 mg/dL (0.2-1.3); CALCIUM 9.3 mg/dL (8.5-10.1); CARBON DIOXIDE 25.1 mmol/L (21.0-32.0); CREATININE - SERUM 1.1 mg/dL (0.6-1.3); POTASSIUM - SERUM 4.5 mmol/L (3.5-5.1); PROTEIN - SERUM 7.1 g/dL (6.4-8.2)
--- NOTE | 2017-11-04 23:10 | NUR ---
REC'D PATIENT FROM ER. NO VISIBLE SIGNS OF DISTRESS. BED IN LOWEST POSITION, CALL LIGHT WITHIN REACH, AND BED ALARM ON. ENCOURAGED THE PATIENT TO CALL IF SHE HAS NEEDS.
[2017-11-05 01:52] VITALS: BP 106/45; Ht 162.6 cm; Wt 90.1 kg
[2017-11-05 07:57] VITALS: BP 128/59
--- NOTE | 2017-11-05 08:59 | NUR ---
PT AOX4 RESP EVEN AND NONLABORED PT DENIES NEEDS AT THIS TIME IV TO RIGHT ARM PATENT AND INTACT AT THIS TIME SRX2 BED AT LOWEST SETTING CALL LIGHT WITHIN REACH WILL CONTINUE TO MONITOR
[2017-11-05 10:04] LABS: BASOPHILS 0.2 % (0-2); EOSINOPHILS 1.7 % (0-7); HEMATOCRIT 32.1 % (36.0-48.0); HEMOGLOBIN 10.7 g/dL (12-16); IMMATURE GRANULOCYTES 0.3 % (0-5); LYMPHOCYTES 17.7 % (15-50); MCH 30.4 pg (26.0-34.0); MCHC 33.3 g/dL (31.0-37.0); MCV 91.2 fL (80.0-100.0); MEAN PLATELET VOLUME 9.1 fL (7.4-10.4); MONOCYTES 14.5 % (2-11); NEUTROPHILS 65.6 % (40-80); PLATELET COUNT 223 10x3/uL (130-400); RBC 3.52 10x6/uL (4.00-5.40); RDW 13.9 % (11.5-14.5)
[2017-11-05 10:24] LABS: ANION GAP 10.4 mmol/L (8-16); BILIRUBIN - TOTAL 0.17 mg/dL (0.2-1.3); CALCIUM 8.8 mg/dL (8.5-10.1); CARBON DIOXIDE 28.8 mmol/L (21.0-32.0); CREATININE - SERUM 1.1 mg/dL (0.6-1.3); POTASSIUM - SERUM 4.2 mmol/L (3.5-5.1); PROTEIN - SERUM 6.2 g/dL (6.4-8.2)
[2017-11-05 12:30] VITALS: BP 137/59
[2017-11-05 15:47] VITALS: BP 144/72
--- NOTE | 2017-11-05 17:08 | NUR ---
OT NOTE: PT COMPLETED SIMPLE HYGIENE WITH SBA/SPV. PT COMPLETED BED MOB WITH SPV. THANK YOU, LATESHA SERRATO/Sandi
[2017-11-05 20:00] VITALS: BP 120/60
--- NOTE | 2017-11-05 20:30 | NUR ---
AWAKE WITH NO COMPLAINTS VOICED. SL TO RIGHT FOREARM WITHOUT REDNESS OR EDEMA NOTED. CL IN REACH.
[2017-11-06] VITALS: BP 114/62
--- NOTE | 2017-11-06 02:00 | NUR ---
PT IN BED WITH NO DISTRESS. RESPIRATIONS EVEN AND UNLABORED. ISOLATION PRECAUTIONS IN PLACE. SIDE RAILS X 2. BED LOW. CALL LIGHT IN REACH.
--- NOTE | 2017-11-06 02:24 | NUR ---
RESTING QUIETLY. NO DISTRESS NOTED. CL IN REACH
[2017-11-06 04:00] VITALS: BP 137/65
[2017-11-06 04:58] LABS: BASOPHILS 0.4 % (0-2); EOSINOPHILS 3.1 % (0-7); HEMATOCRIT 32.5 % (36.0-48.0); HEMOGLOBIN 10.7 g/dL (12-16); IMMATURE GRANULOCYTES 0.2 % (0-5); LYMPHOCYTES 22.8 % (15-50); MCH 29.8 pg (26.0-34.0); MCHC 32.9 g/dL (31.0-37.0); MCV 90.5 fL (80.0-100.0); MONOCYTES 13.4 % (2-11); NEUTROPHILS 60.1 % (40-80); PLATELET COUNT 233 10x3/uL (130-400); RBC 3.59 10x6/uL (4.00-5.40); RDW 13.9 % (11.5-14.5); WBC 5.5 10x3/uL (4.8-10.8)
[2017-11-06 05:14] LABS: ALBUMIN 2.1 g/dL (3.4-5.0); ANION GAP 10.4 mmol/L (8-16); BILIRUBIN - TOTAL 0.25 mg/dL (0.2-1.3); CALCIUM 9.1 mg/dL (8.5-10.1); CARBON DIOXIDE 28.7 mmol/L (21.0-32.0); MAGNESIUM - SERUM 1.8 mg/dL (1.8-2.4); PHOSPHOROUS 2.2 mg/dL (2.5-4.9); POTASSIUM - SERUM 4.1 mmol/L (3.5-5.1); PROTEIN - SERUM 6.6 g/dL (6.4-8.2)
--- NOTE | 2017-11-06 05:16 | NUR ---
AWAKE,NO CHANGE IN ASSESSMENT. CL IN REACH
[2017-11-06 05:19] LABS: CREATININE - SERUM 0.8 mg/dL (0.6-1.3)
--- NOTE | 2017-11-06 07:30 | NUR ---
ASSESSMENT COMPLETE. SL TO R FA PATENT. DROPLET ISOLATION. O2 3L NC IN USE. CASING FINISHER AND STUFFER SHOWING SR 73 PER TECH. DENIES ANY NEEDS AT THIS TIME.
[2017-11-06 07:50] VITALS: BP 154/74
--- NOTE | 2017-11-06 11:13 | NUR ---
OT NOTE: BED MOB TRAINING; STATIC / DYNAMIC SITTING BALANCE TO ASSIST WITH ADLS . NATHANIEL WRIGHT, OTR/L
--- NOTE | 2017-11-06 12:00 | NUR ---
NO CHANGES NOTED AT PRESENT. COMPLAINING OF SHORTNESS OF BREATH. O2 SAT 97% ON 3L NC.
[2017-11-06 12:26] VITALS: BP 158/75
--- NOTE | 2017-11-06 15:03 | NUR ---
RESTING QUIETLY AT THIS TIME.
[2017-11-06 15:32] VITALS: BP 152/76
--- NOTE | 2017-11-06 18:11 | NUR ---
NO CHANGES NOTED AT THIS TIME.
[2017-11-06 20:00] VITALS: BP 164/72
[2017-11-07 04:00] VITALS: BP 162/60
[2017-11-07 05:11] LABS: BASOPHILS 0.6 % (0-2); EOSINOPHILS 3.8 % (0-7); HEMATOCRIT 32.2 % (36.0-48.0); HEMOGLOBIN 10.6 g/dL (12-16); IMMATURE GRANULOCYTES 0.2 % (0-5); LYMPHOCYTES 34.6 % (15-50); MCH 29.5 pg (26.0-34.0); MCHC 32.9 g/dL (31.0-37.0); MCV 89.7 fL (80.0-100.0); MEAN PLATELET VOLUME 9.4 fL (7.4-10.4); MONOCYTES 13.5 % (2-11); NEUTROPHILS 47.3 % (40-80); PLATELET COUNT 268 10x3/uL (130-400); RBC 3.59 10x6/uL (4.00-5.40); RDW 13.5 % (11.5-14.5); WBC 4.8 10x3/uL (4.8-10.8)
[2017-11-07 05:25] LABS: ALBUMIN 2.1 g/dL (3.4-5.0); ANION GAP 11.3 mmol/L (8-16); BILIRUBIN - TOTAL 0.26 mg/dL (0.2-1.3); CALCIUM 9.1 mg/dL (8.5-10.1); CARBON DIOXIDE 30.7 mmol/L (21.0-32.0); CREATININE - SERUM 0.9 mg/dL (0.6-1.3); PROTEIN - SERUM 6.5 g/dL (6.4-8.2)
[2017-11-07 08:10] VITALS: BP 164/87
--- NOTE | 2017-11-07 09:00 | NUR ---
ASSESSMENT COMPLETE. SL TO R FA PATENT. O2 3L NC IN USE. CIGARETTE SELLER SHOWING SR 66 PER TECH. DRESSING TO R BUTTOCK INTACT. DROPLET ISOLATION. DENIES ANY NEEDS AT THIS TIME.
[2017-11-07 09:17] LABS: IMMUNOGLOBULIN E 275 IU/mL (0-100)
--- NOTE | 2017-11-07 10:17 | NUR ---
TARA SPOKE WITH ITZ AT DR AGGARWAL'S OFFICE TO SEE IF I COULD MAKE AN APPOINTMENT FOR THE PATIENT PRIOR TO DISCHARGE. ITZ STATED THAT I NEEDED TO SEND INFO OVER TO [facility], THEY WOULD GET IT TO DR AGGARWAL'S HEAD NURSE KELLY AND THEN THEY WOULD GET AN APPOINTMENT TIME TO THE PATIENT. INFORMATION SENT TO [phone]. I ALSO CALLED RAD TO MAKE DISC OF ALL SCANS SO PATIENT CAN TAKE THIS TO [facility]. CM WILL CONTINUE TO FOLLOW AND ASSIST WITH DISCHARGE PLANNING NEEDS
--- NOTE | 2017-11-07 12:00 | NUR ---
NO CHANGES NOTED AT PRESENT.
[2017-11-07 12:53] VITALS: BP 162/82
--- NOTE | 2017-11-07 13:53 | NUR ---
OT NOTE: PT REPORTED THAT SHE WAS FEELING JUST A LITTLE BETTER; BED MOB WITH MIN ASSIST; STATIC SITTING WITH GOOD BALANCE; R UE WITH MINIMAL RANGE ( APPROX 90 SHOULDER FLEX) DUE TO RA; PASSIVE RANGE TO APPROX 120) . WILL CONT WITH EXS AND ENDURANCE ACT TOLERATED. NATHANIEL WRIGHT, OTR/L
--- NOTE | 2017-11-07 14:16 | NUR ---
Patient Name: ROSE MARIE VILLEGAS Admission Status: ER Accout number: [id number] Admission Date: 11-04-2017 : 1945 Admission Diagnosis:FLU DUE TO UNIDENTIFIED FLU VIRUS W UNSP TYPE OF PNEUMO Attending: JEANNIE MANTILLA Current LOS: 3 Anticipated DC Date: 11-11-2017 Planned Disposition: Home Primary Insurance: MEDICARE A & B Discharge Planning Comments: CM MET WITH PATIENT REGADING D/C NEEDS AND PLANS. PATIENT STATED SHE LIVES WITH HER DAUGHTER (JULIAN) AND SHE WILL DRIVE HER HOME AT DISCHARGE. PATIENT STATED SHE IS INDEPENDENT WITH HER CARE AND HAS A WALKER, WHEELCHAIR, SHOWER CHAIR, BS COMMODE, NEBULIZER, AND OXYGEN (LINCARE). PCP IS DR. PERRY AND PHARMACY IS [facility]. PATIENT STATED SHE IS INDEPENDENT AND DOES HER OWN MEDS. PATIENT WAS SET UP WITH OP PT ([facility]) PER [facility] IN REHAB. PATIENT DOES NOT WANT HH AT THIS TIME. CM WILL CONTINUE TO FOLLOW PATIENT WITH D/C NEEDS AND PLANS. PCP DR. VICKY BAUTISTADARLING [phone] JULIAN (DAUGHTER) [phone] Software Test Engineer: Ximena Tillman Is the patient Alert and Oriented? Yes 0 * How many steps to enter\exit or inside your home? 0 0 * PCP DR. PERRY 0 * Pharmacy [facility] 0 * Preadmission Environment Home with Family 0 * ADLs Independent 0 * Equipment Bedside Commode Nebulizer Oxygen Shower Chair Walker Wheelchair 0 * List name and contact numbers for known caregivers / representatives who currently or will assist patient after discharge: JULIAN (DAUGHTER) [phone] 0 * Community resources currently utilized Other 0 * Please name any agencies selected above. OP PHYSICAL THERAPY 0 * Additional services required to return to the preadmission environment? Yes 0 * Can the patient safely return to the preadmission environment? Yes 0 * Has this patient been hospitalized within the prior 30 days at any hospital? Yes 0 Grand Total: 0
--- NOTE | 2017-11-07 15:00 | NUR ---
RESTING QUIETLY AT THIS TIME. NO CHANGES NOTED AT PRESENT.
[2017-11-07 15:50] VITALS: BP 157/88
--- NOTE | 2017-11-07 17:07 | NUR ---
OT NOTE" PT COMPLETED BED MOB WITH SIDE RAIL. PT COMPLETED BUE AAROM. PT COMPLETED GROOMING WITH SET UP. THANK YOU, LATESHA SERRATO/Sandi
--- NOTE | 2017-11-07 18:26 | NUR ---
BRACE BROUGHT IN BY FAMILY.
[2017-11-07 20:00] VITALS: BP 160/90
[2017-11-08 04:00] VITALS: BP 155/79
--- NOTE | 2017-11-08 05:40 | NUR ---
ASSESSED,RESPIRATIONS EASY, NO O2 ON AND NO DISTRESS NOTED. URINAL AT THE BEDSIDE. THE BED IS LOW, RAILS UP X;S 2 WITH THE CALL LIGHT AT HAND.
[2017-11-08 07:04] LABS: BASOPHILS 0.6 % (0-2); EOSINOPHILS 3.3 % (0-7); HEMATOCRIT 35.5 % (36.0-48.0); HEMOGLOBIN 11.7 g/dL (12-16); IMMATURE GRANULOCYTES 0.4 % (0-5); LYMPHOCYTES 34.6 % (15-50); MCH 29.5 pg (26.0-34.0); MCV 89.4 fL (80.0-100.0); MONOCYTES 14.5 % (2-11); NEUTROPHILS 46.6 % (40-80); PLATELET COUNT 267 10x3/uL (130-400); RBC 3.97 10x6/uL (4.00-5.40); RDW 13.5 % (11.5-14.5); WBC 5.1 10x3/uL (4.8-10.8)
[2017-11-08 07:24] LABS: ALBUMIN 2.4 g/dL (3.4-5.0); ANION GAP 13.2 mmol/L (8-16); BILIRUBIN - TOTAL 0.32 mg/dL (0.2-1.3); CALCIUM 9.3 mg/dL (8.5-10.1); CARBON DIOXIDE 29.5 mmol/L (21.0-32.0); CREATININE - SERUM 1.1 mg/dL (0.6-1.3); POTASSIUM - SERUM 3.7 mmol/L (3.5-5.1)
[2017-11-08 08:45] VITALS: BP 154/83
[2017-11-08 12:56] VITALS: BP 175/87
[2017-11-08 14:09] LABS: CREATINE KINASE 32 UL (21-215); TROPONIN-I < 0.017 ng/mL (0.000-0.060)
[2017-11-08 16:45] VITALS: BP 192/92
[2017-11-08 20:00] VITALS: BP 118/92
--- NOTE | 2017-11-08 21:20 | NUR ---
PATIENT RESTING IN BED AND DENIES NEEDS AT THIS TIME. FAMILY AT BEDSIDE. ADMINISTERED MEDS PER ORDERS. BED IN LOWEST POSITION, CALL LIGHT WITHIN REACH, AND BED ALARM ON. ENCOURAGED THE PATIENT TO CALL IF SHE HAS NEEDS.
--- NOTE | 2017-11-08 22:25 | NUR ---
NOTIFIED BY THE PATIENT'S FAMILY MEMBER THAT THE PATIENT'S IV WAS LEAKING. I RESITED THE PATIENT'S IV IN HER LEFT FA WITH A 22G ON THE SECOND ATTEMPT.
[2017-11-09] VITALS: BP 166/91
[2017-11-09 04:00] VITALS: BP 129/80
[2017-11-09 05:23] LABS: BASOPHILS 0.4 % (0-2); EOSINOPHILS 3.3 % (0-7); HEMATOCRIT 32.6 % (36.0-48.0); IMMATURE GRANULOCYTES 0.7 % (0-5); LYMPHOCYTES 33.8 % (15-50); MCH 29.7 pg (26.0-34.0); MCHC 33.7 g/dL (31.0-37.0); MCV 88.1 fL (80.0-100.0); MEAN PLATELET VOLUME 8.8 fL (7.4-10.4); MONOCYTES 18.2 % (2-11); NEUTROPHILS 43.6 % (40-80); PLATELET COUNT 238 10x3/uL (130-400); RDW 13.4 % (11.5-14.5); WBC 4.6 10x3/uL (4.8-10.8)
[2017-11-09 05:40] LABS: ALBUMIN 2.2 g/dL (3.4-5.0); ANION GAP 11.6 mmol/L (8-16); BILIRUBIN - TOTAL 0.24 mg/dL (0.2-1.3); CALCIUM 9.2 mg/dL (8.5-10.1); CARBON DIOXIDE 28.2 mmol/L (21.0-32.0); POTASSIUM - SERUM 3.8 mmol/L (3.5-5.1); PROTEIN - SERUM 6.5 g/dL (6.4-8.2)
[2017-11-09 09:11] VITALS: BP 186/60
[2017-11-09 11:59] VITALS: BP 134/48
[2017-11-09 16:19] VITALS: BP 141/64
--- NOTE | 2017-11-09 18:07 | NUR ---
DISCHARGE INSTRUCTIONS GIVEN TO PATIENT - EXPRESSED UNDERSTANDING. IV REMOVED WITH NO COMPLICATIONS. AWAITING DAUGHTERS ARRIVAL. NO COMPLAINTS AT THIS TIME.
--- NOTE | 2017-11-10 08:17 | CN ---
PATIENT NAME:ROSE MARIE ECHEVARRIA MEDICAL RECORD: [id number] : 41 LOCATION:[id number] ADMIT DATE: 11/04/17 ACCOUNT: [id number] CONSULTING PHYSICIAN: ESME NGUYEN MD REFERRING PHYSICIAN: JEANNIE MANTILLA MD DATE OF CONSULTATION: 11/09/2017 Cardiology Consultation HISTORY OF PRESENT ILLNESS: Rose Marie Echevarria is a 72-year-old female with history of hypertension, obstructive pulmonary disease, atrial fibrillation, chronic venous insufficiency, rheumatoid arthritis, on remittive agents in the past who was discharged for rehab recently who was admitted with a fever to 103, myalgias, and arthralgias and found to have a positive influenza and negative swab and was having chest pain recently, this has improved. Clearly a pleuritic component, worse with inspiration. Cardiac enzymes are negative. We are asked to see her concerning her cardiovascular status. PAST MEDICAL HISTORY: Includes: 1. A history of cerebrovascular disease status post cerebrovascular accident. 2. Cardiomyopathy, systolic dysfunction, EF 40%. 3. Hypertension. 4. Rheumatoid arthritis, on remittive agents in the past. MEDICATIONS: Chronically include DuoNeb q.4 hours, Pravachol 20 mg p.o. q.h.s., amlodipine 5 mg p.o. every day, carvedilol 12.5 every day, lisinopril 10 every day, Voltaren topical q.i.d., Ativan 0.5 q.6 hours p.r.n., aspirin 325 every day, Percocet 10/325 one q. 6 hours p.r.n., HCTZ 25 every day, Synthroid 50 mcg every day, Arava 10 mg daily. SOCIAL HISTORY: Recently discharged from rehab, previously was independent, could do ADLs before her last CVA. REVIEW OF SYSTEMS: The patient reports easy bruising but reports no swollen glands. The patient reports no fever, no night sweats, no significant weight gain, no significant weight loss. No significant exercise tolerance. The patient reports no dry eyes, no irritation, no vision change. Patient reports no difficulty hearing and no ear pain. Patient reports no frequent nose bleeds or nose and sinus problems. Patient reports on arm pain on exertion. No shortness of breath while lying down. No history of heart murmur. Patient reports no cough, no wheezing or coughing up blood. Patient reports no abdominal pain, no vomiting. Normal appetite. No diarrhea and not vomiting blood. No nausea and no constipation. Patient reports no incontinence. No difficulty urinating. No hematuria. No increased frequency. Patient reports no muscle aches. No weakness, no arthralgias, no back pain. No swelling of the extremities. Patient reports no abnormal mole, no jaundice, no rashes. Reports no loss of consciousness. No weakness and no numbness. No seizures, dizziness, or headaches. The patient reports no depression, no sleep disturbance, feeling safe in a relationship and no alcohol abuse. Patient reports on fatigue. Reports no runny nose or sinus pressure. No itching, no hives, and no frequent sneezing. PHYSICAL EXAMINATION: GENERAL: Pleasant female in no acute distress. VITAL SIGNS: Blood pressure 186/60, pulse 70 and regular. CONSULT REPORT [id number] ROSE MARIE ECHEVARRIA HEENT: Normocephalic, atraumatic. NECK: No bruits are noted. HEART: Tones are distant, regular. No obvious gallops. LUNGS: Diminished air excursion. ABDOMEN: Soft, nontender. EXTREMITIES: 1+ pulses, 1+ edema. DIAGNOSTIC DATA: Telemetry shows sinus rhythm. IMPRESSION: Chest pain in the setting of influenza B. This is resolving with treatment of underlying illness. Enzymes are negative. Cardiomyopathy appears to be well compensated. TRANSINT:[id number] Voice Confirmation ID: [id number] DOCUMENT ID: [id number] ESME NGUYEN MD at 0817 CC: [id number] DICTATION DATE: 11/09/17 1144 COUNTY AGENT: 11/09/17 1431 DIS IN 11/09/17 [facility] [address] [id number]
--- NOTE | 2017-12-24 11:58 | DS ---
PATIENT:ROSE MARIE VILLEGAS :41 MEDICAL RECORD: [id number] DISCHARGE SUMMARY ADMISSION DATE: 11/04/17 DISCHARGE DATE: 11/09/17 DATE OF ADMISSION: 11/04/2017 DATE OF DISCHARGE: 11/09/2017 DISCHARGE DIAGNOSES: 1. Acute hypoxic respiratory failure due to a positive influenza A. 2. Fteeu-jd-hxyrmgk systolic failure with an ejection fraction of 40%. 3. Atrial fibrillation. 4. Hypotension. 5. Hyperlipidemia. 6. Iron deficiency anemia. 7. Coronary artery disease. 8. Positive kappa light chains. 9. Hyponatremia. 10. Positive rheumatoid arthritis on Enbrel and MTX. 11. Recent cerebrovascular accident. 12. Hyponatremia. HOSPITAL COURSE: The full H&P is listed elsewhere in the chart for this 72-year-old patient with multiple comorbid conditions who presented to the hospital with fever, chills and malaise, and a productive cough. The patient had a positive nasal influenza swab. She was admitted into the inpatient setting, started on Tamiflu twice a day and droplet precaution. O2 was titrated to keep sats greater than 90%. She was started on DuoNeb updrafts and antibiotic therapy. DVT and GI prophylaxis were also instituted. There were several consultations obtained during her hospitalization including pulmonary and cardiology. IMAGING STUDIES: Included a CTA of the chest, which was negative for pulmonary emboli. There was some mild ground-glass opaque disease in both lungs, primarily centrally, suggestive of mild CHF. Venous Doppler showed no evidence of DVT. Chest showed mild right lower lobe airspace disease suggestive of pneumonia. Cardiology was consulted due to her cardiovascular history, but the patient was compensated from a cardiovascular standpoint and no medication therapy was indicated from CV. The patient's antibiotic coverage during her hospitalization included Zosyn and IV Levaquin for 7 days. Her antibiotic therapy was deescalated. The patient's clinical condition improved and the patient was thought to be stable to discharge to home. See med rec. TRANSINT:[id number] Voice Confirmation ID: [id number] DOCUMENT ID: [id number] Dictated By: SERGEY RUTH I have interviewed/examined the above patient and agree with these documented findings. DISCHARGE SUMMARY REPORT [id number] ROSE MARIE VILLEGAS at 1114 at 1158 CC: [id number] DICTATION DATE: 12/19/17 0910 MILLER HELPER DISTILLERY: 12/20/17 0204 DIS IN 11/09/17 [facility] [address] [place] [address]
== END 2017-11-09 18:48 | disposition home or self-care (01) | DRG 193 ==
LOC: D.ER 17:39 → D.MS 21:27
PROVIDERS: Internal Medicine Pulmonary Disease; Physician Assistant; ADMIT Family Medicine
DX: J11.00 Influenza due to unidentified influenza virus with unspecified type of pneumonia (principal); I50.23 Acute on chronic systolic (congestive) heart failure; J96.01 Acute respiratory failure with hypoxia; E87.1 Hypo-osmolality and hyponatremia; I13.0 Hypertensive heart and chronic kidney disease with heart failure and stage 1 through stage 4 chronic kidney disease, or unspecified chronic kidney disease; N39.0 Urinary tract infection, site not specified; J45.901 Unspecified asthma with (acute) exacerbation; J44.9 Chronic obstructive pulmonary disease, unspecified; E66.9 Obesity, unspecified; Z68.34 Body mass index [BMI] 34.0-34.9, adult; N18.9 Chronic kidney disease, unspecified; B96.20 Unspecified Escherichia coli [E. coli] as the cause of diseases classified elsewhere; G89.4 Chronic pain syndrome; E03.9 Hypothyroidism, unspecified; M06.9 Rheumatoid arthritis, unspecified; I48.91 Unspecified atrial fibrillation

== ENCOUNTER 2019-06-07 07:47 | Emergency (ER) | payer MEDICARE, OTHER ==
[~2019-06-07] VITALS: Ht 154.9 cm; Wt 90.0 kg
[2019-06-07 07:49] VITALS: Ht 154.9 cm; Wt 90.0 kg
[2019-06-07] MEDS ORDERED: BREO ELLIPTA 11 EACH INH (08:14)
[2019-06-07] MEDS ORDERED: NORVASC10 MG PO (08:14)
[2019-06-07] MEDS ORDERED: VOLTAREN100 GM TOPICAL (08:15)
[2019-06-07] MEDS ORDERED: FOLIC ACID1 MG PO (08:15)
[2019-06-07] MEDS ORDERED: CELEXA20 MG PO (08:15)
[2019-06-07] MEDS ORDERED: GABAPENTIN100 MG PO (08:16)
[2019-06-07] MEDS ORDERED: FUROSEMIDE20 MG PO (08:16)
[2019-06-07] MEDS ORDERED: SYNTHROID50 MCG PO (08:17)
[2019-06-07] MEDS ORDERED: LISINOPRIL-HCT1 EAC8 PO (08:17)
[2019-06-07] MEDS ORDERED: SINGULAIR10 MG PO (08:18)
[2019-06-07] MEDS ORDERED: OMEPRAZOLE20 M1 PO (08:18)
[2019-06-07] MEDS ORDERED: PERCOCET 10-321 EAC1 PO (08:19)
[2019-06-07] MEDS ORDERED: SODIUM BICARBO325 MG (08:20)
[2019-06-07] MEDS ORDERED: PRAVACHOL40 MG (08:20)
[2019-06-07] MEDS ORDERED: ZANAFLEX4 MG (08:21)
[2019-06-07] MEDS ORDERED: XELJANZ5 MG (08:21)
[2019-06-07 08:37] LABS: BASOPHILS 0.2 % (0-2); EOSINOPHILS 1.9 % (0-7); HEMATOCRIT 29.6 % (36.0-48.0); HEMOGLOBIN 9.7 g/dL (12-16); IMMATURE GRANULOCYTES 0.2 % (0-5); LYMPHOCYTES 15.8 % (15-50); MCH 29.7 pg (26.0-34.0); MCHC 32.8 g/dL (31.0-37.0); MCV 90.5 fL (80.0-100.0); MEAN PLATELET VOLUME 9.4 fL (7.4-10.4); MONOCYTES 14.2 % (2-11); NEUTROPHILS 67.7 % (40-80); RBC 3.27 10x6/uL (4.00-5.40); RDW 15.2 % (11.5-14.5); WBC 5.1 10x3/uL (4.8-10.8)
[2019-06-07 08:39] LABS: PLATELET COUNT 348 10x3/uL (130-400)
[2019-06-07 08:51] LABS: ALBUMIN 2.6 g/dL (3.4-5.0); ALKALINE PHOSPHATASE 70 U/L (46-116); ALT (SGPT) 24 U/L (10-68); BILIRUBIN - TOTAL 0.33 mg/dL (0.2-1.3); CALC OSMOLALITY 275 mosm/kg (275-300); CALCIUM 9.8 mg/dL (8.5-10.1); CARBON DIOXIDE 33.4 mmol/L (21.0-32.0); CHLORIDE - SERUM 96 mmol/L (98-107); CREATININE - SERUM 1.2 mg/dL (0.6-1.3); GLUCOSE 123 mg/dL (74-106); POTASSIUM - SERUM 4.4 mmol/L (3.5-5.1); SODIUM 135 mmol/L (136-145); UREA NITROGEN 27 mg/dL (7-18); eGFR NON AFRICAN AMERICAN 46 mL/min (90-120)
[2019-06-07 09:00] LABS: APTT 40.6 SECONDS (22.8-39.4); INR 1.26 (0.85-1.17); PROTIME 15.3 SECONDS (11.6-15.0)
[2019-06-07 09:01] LABS: LIPASE 91 U/L (73-393); PRO BNP 1103 pg/mL (0-450); THYROID STIMULATING HORMONE 1.29 uIU/mL (0.36-3.74); TROPONIN-I < 0.017 ng/mL (0.000-0.060)
[2019-06-07 10:21] LABS: APPEARANCE CLEAR (CLEAR); BILIRUBIN NEGATIVE (NEGATIVE); COLOR YELLOW (YELLOW); GLUCOSE NEGATIVE (NEGATIVE); KETONE NEGATIVE (NEGATIVE); NITRITE NEGATIVE (NEGATIVE); PROTEIN NEGATIVE (NEGATIVE); SPECIFIC GRAVITY 1.005 (1.005-1.020); UROBILINOGEN NORMAL (NORMAL)
[2019-06-07 14:32] VITALS: BP 128/54
== END 2019-06-07 14:19 ==
LOC: D.ER 07:47
PROVIDERS: Family Medicine
DX: R50.9 Fever, unspecified (principal); D64.9 Anemia, unspecified; M25.551 Pain in right hip